=== PATIENT | female | born 1990 ===

== ENCOUNTER 2022-10-10 10:29 | Outpatient (AMB) | payer MEDICARE, MEDICAID, SELFPAY ==
[2022-10-10 10:36] VITALS: BP 110/70; PULSE 87; O2SAT 98; BMI 27.2
--- NOTE | 2022-10-10 10:36 | A.OFFVIS_ITS ---
Intake Vital Signs 10/10/22 10:36 Height 5 ft 2 in Weight 148 lb 12.992 oz BMI 27.2 BP 110/70 Blood Pressure Location Lt brachial Position Sitting Pulse 87 Pulse Source Pulse Oximeter Pulse Oximetry (%) 98 Oxygen Delivery Method Room Air Intake Visit Reasons: Pulmonary Nodules De Alcholizer Required: No Allergies No Known Allergies Allergy (Verified 10/10/22 10:38) HPI HPI Comments History of Present Illness Details The patient is here for pulmonary evaluation. The patient is a 32 year woman with a known history of lupus followed closely by the arthritis and has underlying interstitial lung disease and pulmonary nodules. The patient had been evaluated in [place] and then moved to the area and was being evaluated at [facility]. Back around 2018 the patient did have a CT scan at [facility] demonstrating bilateral irregular ill-defined fluffy opacities and densities. She did have a CT-guided biopsy demonstrating organizing pneumonia likely cough. The patient has been on hydrochloroquine and clinically she was stable. The patient was lost to follow-up because her doctor left. Now she is developing increasing chest tightness some pleuritic discomfort and cough. She has not had any imaging studies since 2018. I did personally reviewed the images. On examination her lungs are diminished. No crackles that I could appreciate. Patient needs a repeat CT scan. Will assess the area. If the areas are worse we will need to further perform diagnostic interventions and potential treatments. [facility] Medical History (Updated 10/10/22 @ 23:39 by Phill Cole MD) Chest pain Cryptogenic organizing pneumonia Lupus Pulmonary nodules Social History (Updated 10/10/22 @ 10:40 by ALESSANDRA Tse) Patient Tobacco Use Status: Never used Tobacco Review of Systems Const Denies fatigue and Denies fever(s) Eyes Denies change in vision ENT Reports nasal congestion Card Reports chest pain and Reports dyspnea on exertion Resp Reports cough, Reports dyspnea on exertion and Denies wheezing GI Reports no additional complaints Musc Reports no additional complaints Skin/Breast Denies rash Neuro Reports no additional complaints Endo Denies fatigue Taran/Lymph Denies lymphadenopathy Aller/Immun Denies wheezing Physical Exam Vital Signs: Last Vital Signs Pulse 87 10/10/22 10:36 BP 110/70 10/10/22 10:36 Pulse Ox 98 10/10/22 10:36 Oxygen Delivery Method Room Air 10/10/22 10:36 BMI result Body Mass Index 27.2 Const General: comfortable HEENT Head: Yes normocephalic Neck Neck: Yes supple Chest Chest palpation & inspection: normal inspection of the chest Cardio Rate: regular rate Rhythm: regular rhythm Heart sounds: S1 normal heart sound present and S2 normal heart sound present GI Palpation (GI): Soft to palpation Skin General skin exam: no rashes or lesions noted Extrem General: Yes no clubbing, cyanosis or edema Assessment & Plan Assessment & Plan (1) Lupus: Code(s): M32.9 - Systemic lupus erythematosus, unspecified (2) Pulmonary nodules: Code(s): R91.8 - Other nonspecific abnormal finding of lung field (3) Cryptogenic organizing pneumonia: Code(s): J84.116 - Cryptogenic organizing pneumonia (4) Chest pain: Code(s): R07.9 - Chest pain, unspecified Plan continue plaquenil CT chest, if worse, discussed a potential bronchosocpy t/o R/O infectious process Bloodwork, depending on the CT scan findings F/U 6-8 weeks Coding Level of Care Code New Pt Level 4 (64424) Diagnoses Lupus M32.9 Pulmonary nodules R91.8 Cryptogenic organizing pneumonia J84.116 Chest pain R07.9 Time Spent (min) 40
== END 2022-10-10 11:04 | disposition home or self-care (01) ==
PROVIDERS: PCP Internal Medicine; Visit Provider Hospitalist
DX: M32.9 Systemic lupus erythematosus, unspecified (principal); R91.8 Other nonspecific abnormal finding of lung field; J84.116 Cryptogenic organizing pneumonia; R07.9 Chest pain, unspecified
CPT/HCPCS: 99204

== ENCOUNTER → 2022-10-10 10:29 | Outpatient (BNVA) | payer MEDICARE, MEDICAID, SELFPAY | PROVIDERS: PCP Internal Medicine; Visit Provider Hospitalist | DX: R91.8 Other nonspecific abnormal finding of lung field (principal); M32.9 Systemic lupus erythematosus, unspecified; J84.116 Cryptogenic organizing pneumonia; R07.9 Chest pain, unspecified | CPT/HCPCS: 99202 ==

== ENCOUNTER 2022-11-30 10:39 | Outpatient (REF) | payer MEDICARE, MEDICAID, SELFPAY ==
[2022-11-30 11:11] LABS: MANUAL DIFF FLAG NO
[2022-11-30 11:34] LABS: Basophils Percent Auto 0.3 % (0-2); Eosinophils Absolute Auto 0.1 X10*3/uL (0.0-0.4); Eosinophils Percent Auto 1.9 % (0-4); Hematocrit 35.9 % (37.0-47.0); Hemoglobin 11.7 g/dl (12.0-16.0); Imm Gran Abs Auto 0.01 X10*3/uL (0.00-0.03); Imm Gran Pct Auto 0.3 % (0.0-0.4); Lymphocytes Percent Auto 32.8 % (20-40); Mean Corpuscular HGB Conc 32.6 g/dl (31.0-35.0); Mean Corpuscular Hemoglobin 24.5 pg (27.0-33.0); Mean Corpuscular Volume 75.3 fL (80.0-98.0); Mean Platelet Volume 11.6 fL (9.4-12.3); Monocytes Absolute Auto 0.2 X10*3/uL (0.1-1.2); Neutrophils Absolute Auto 1.8 x10*3/uL (2.0-8.3); Neutrophils Percent Auto 57.7 % (45-73); Platelet Count 197 X10*3/uL (160-400); Red Blood Count 4.77 X10*6/uL (4.20-5.50); Red Cell Distribution Width 14.9 % (11.0-16.0); White Blood Count 3.1 X10*3/uL (4.8-10.8)
[2022-11-30 11:59] LABS: Alanine Aminotransferase 26 U/L (0-31); Albumin Level 4.4 g/dL (3.5-5.0); Alkaline Phosphatase 92 U/L (39-117); Anion Gap 15 (12-20); Aspartate Amino Transferase 29 U/L (5-31); Bilirubin Direct 0.2 mg/dL (0.0-0.5); Bilirubin Total 0.5 mg/dL (0.0-1.0); Blood Urea Nitrogen 7 mg/dL (9-16); Calcium 9.6 mg/dL (8.4-10.2); Carbon Dioxide 25 mmol/L (22-29); Chloride 104 mmol/L (96-108); Estimated Glomerular Filt Rate > 60; Glucose Random 96 mg/dL (60-115); Iron 39 mcg/dL (30-160); Percent Iron Saturation 12 % (15-50); Potassium 4.1 mmol/L (3.3-5.1); Sodium 140 mmol/L (135-145); Total Iron Binding Capacity 339 mcg/dL (228-428); Total Protein 7.7 g/dL (6.5-8.0); Unsaturated Iron Binding 300 ug/dL
[2022-12-03 22:48] LABS: Complement C3 183 mg/dL (83-193)
[2022-12-05 15:02] LABS: DNAds, Crithidia Antibody Negative (Negative)
== END 2022-11-30 10:40 | disposition home or self-care (01) ==
LOC: HO.HHCL 10:39
PROVIDERS: Visit Provider Internal Medicine
DX: M32.9 Systemic lupus erythematosus, unspecified (principal); D64.9 Anemia, unspecified
CPT/HCPCS: 36415; 80048; 80076; 83540; 85025; 86160; 86255

== ENCOUNTER 2022-12-27 09:02 | Outpatient (REF) | payer MEDICARE, MEDICAID, SELFPAY ==
--- NOTE | ~2022-12-27 | CT_ITS ---
EXAMINATION: CT CHEST WITHOUT CONTRAST CLINICAL INFORMATION: Pulmonary nodule. COMPARISON: CT chest 01/04/2021. TECHNIQUE: Multidetector volumetric CT imaging of the chest was done. Axial MIP volume rendering provided. Sagittal and coronal reformatted images were obtained. This CT examination was performed using dose optimization techniques as appropriate, variously including the following: *Automated exposure control *Adjustment of mA and/or kV according to patient size (this includes techniques or standardized protocols for targeted exams where dose is matched to indication/reason for exam; i.e. extremities or head) *Use of iterative reconstruction technique DLP: 103 mGy-cm FINDINGS: LUNGS: Three small nodules are present around the minor fissure measuring between 2 and 3 mm in size, unchanged from prior (5:225 and 229). A 3 mm right upper lobe nodule is unchanged (5:249 compare prior 5:131). Again seen is a large reticular/ground-glass opacity in the right lower lobe covering an area of about 5.3 x 2.1 x 5.0 cm, unchanged from prior. A similar-appearing abnormality, but much smaller, is present in the left lower lobe at the lung base, unchanged. No new or worrisome lung mass is seen. MEDIASTINUM: The mediastinum is normal. CORONARY ARTERY CALCIFICATION: None visualized on this study. PLEURA: There is no pleural effusion. No pleural mass or thickening. AXILLA: No lymphadenopathy. A 1 cm short axis dimension left axillary lymph node is unchanged and not a worrisome finding. UPPER ABDOMEN: Unremarkable. OSSEOUS STRUCTURES: Unremarkable. CT/CT chest wo IV con IMPRESSION: 1. Stable small lung nodules. 2. Stable reticular/ground-glass opacities in the lower lobes, right greater than left. 3. No new or worrisome lung mass is seen. Fleischner guidelines do not apply to patients under 35 years of age.
== END 2022-12-27 09:03 | disposition home or self-care (01) ==
LOC: HO.CT 09:02
PROVIDERS: PCP Internal Medicine; Visit Provider Internal Medicine
DX: R91.8 Other nonspecific abnormal finding of lung field (principal)
CPT/HCPCS: 71250

== ENCOUNTER 2023-01-03 11:10 | Outpatient (AMB) | payer MEDICARE, MEDICAID, SELFPAY ==
[2023-01-03 11:16] VITALS: BP 122/70; PULSE 86; O2SAT 99; BMI 26.9
--- NOTE | 2023-01-03 11:16 | MHC.OFFVIS ---
Intake Vital Signs 01/03/23 11:16 Height 5 ft 2 in Weight 147 lb BMI 26.9 BP 122/70 Blood Pressure Location Lt brachial Position Sitting Pulse 86 Pulse Source Pulse Oximeter Pulse Oximetry (%) 99 Oxygen Delivery Method Room Air Intake Visit Reasons: Pulmonary Nodules Educational Audiologist Required: No Allergies No Known Allergies Allergy (Verified 01/03/23 11:19) HPI HPI Comments History of Present Illness Details The patient is a 32 year woman with a known history of lupus followed closely by the arthritis and has underlying interstitial lung disease and pulmonary nodules. The patient had been evaluated in [place] and then moved to the area and was being evaluated at [facility]. Back around 2018 the patient did have a CT scan at [facility] demonstrating bilateral irregular ill-defined fluffy opacities and densities. She did have a CT-guided biopsy demonstrating organizing pneumonia likely cough. The patient has been on hydrochloroquine and clinically she was stable. The patient was lost to follow-up because her doctor left. Now she is developing increasing chest tightness some pleuritic discomfort and cough. She has not had any imaging studies since 2018. I did personally reviewed the images. On examination her lungs are diminished. No crackles that I could appreciate. Patient needs a repeat CT scan. Will assess the area. If the areas are worse we will need to further perform diagnostic interventions and potential treatments. 01/03/2023 the patient is here for a pulmonary follow-up visit. The patient was any usual state health until the last few weeks when she started developing a respiratory illness. She started having worsening chest congestion and cough. Feels some chest tightness. She continues on the Plaquenil regarding her lupus appears to be stable. She did have a repeat CT scan of the chest which we personally reviewed. It appears that the areas involved with her organizing pneumonia back in 2018 have improved REM significantly although that is still there. Likely some degree of scarring was present. Does not appear to have any new spots or areas. She does have small pulmonary nodules. She does have pleuritic discomfort some degree but not in necessarily in the area involved. The patient does have some costochondritis. She has been coughing a lot more. She is congested. Will go ahead and treat her for bronchitis with bronchospasms. The patient is reluctant to use steroids. I gave her Medrol Gustavo that she can start if she is no better. [facility] Medical History (Updated 01/03/23 @ 19:19 by Phill Cole MD) Chest pain Cryptogenic organizing pneumonia Pulmonary nodules Lupus Social History (Updated 10/10/22 @ 10:40 by ALESSANDRA Tse) Patient Tobacco Use Status: Never used Tobacco Review of Systems Const Denies fatigue and Denies fever(s) Eyes Denies change in vision ENT Reports nasal congestion Card Reports chest pain and Reports dyspnea on exertion Resp Reports cough, Reports dyspnea on exertion and Denies wheezing GI Reports no additional complaints Musc Reports no additional complaints Skin/Breast Denies rash Neuro Reports no additional complaints Endo Denies fatigue Taran/Lymph Denies lymphadenopathy Aller/Immun Denies wheezing Physical Exam Vital Signs: Last Vital Signs Pulse 86 01/03/23 11:16 BP 122/70 01/03/23 11:16 Pulse Ox 99 01/03/23 11:16 Oxygen Delivery Method Room Air 01/03/23 11:16 BMI result Body Mass Index 26.9 Const General: comfortable HEENT Head: Yes normocephalic Neck Neck: Yes supple Chest Chest palpation & inspection: normal inspection of the chest Resp Effort & Inspection: normal respiratory effort and prolonged expiratory phase Auscultation: rhonchi Cardio Rate: regular rate Rhythm: regular rhythm Heart sounds: S1 normal heart sound present and S2 normal heart sound present GI Palpation (GI): Soft to palpation Skin General skin exam: no rashes or lesions noted Extrem General: Yes no clubbing, cyanosis or edema Assessment & Plan Assessment & Plan (1) Bronchitis: Code(s): J40 - Bronchitis, not specified as acute or chronic (2) Lupus: Code(s): M32.9 - Systemic lupus erythematosus, unspecified (3) Pulmonary nodules: Code(s): R91.8 - Other nonspecific abnormal finding of lung field (4) Cryptogenic organizing pneumonia: Code(s): J84.116 - Cryptogenic organizing pneumonia (5) Chest pain: Code(s): R07.9 - Chest pain, unspecified Qualifiers: Chest pain type: intercostal pain Qualified Code(s): R07.82 - Intercostal pain Plan ZPACK Medrol if no better MAGNOLIA as needed continue plaquenil CT chest in 1 yr F/U 6-8 months Medications: New albuterol sulfate 90 mcg/actuation (Ventolin HFA) 2 puffs inhalation QID 30 days PRN 18 grams 11RF shortness of breath or wheezing azithromycin 500 mg PO DAILY 5 days 5 tabs 0RF methylprednisolone (Medrol (Gustavo)) PO PER PKG DIR 6 days 21 ea 0RF Coding Level of Care Code Est Pt Level 4 (43614) Diagnoses Bronchitis J40 Lupus M32.9 Pulmonary nodules R91.8 Cryptogenic organizing pneumonia J84.116 Intercostal pain R07.82 Chest pain type: intercostal pain Time Spent (min) 17
== END 2023-01-03 11:38 | disposition home or self-care (01) ==
PROVIDERS: PCP Internal Medicine; Visit Provider Hospitalist
DX: J40 Bronchitis, not specified as acute or chronic (principal); M32.9 Systemic lupus erythematosus, unspecified; R91.8 Other nonspecific abnormal finding of lung field; J84.116 Cryptogenic organizing pneumonia; R07.82 Intercostal pain
CPT/HCPCS: 99214

== ENCOUNTER → 2023-01-03 11:10 | Outpatient (BNVA) | payer MEDICARE, MEDICAID, SELFPAY | PROVIDERS: PCP Internal Medicine; Visit Provider Hospitalist | DX: R91.8 Other nonspecific abnormal finding of lung field (principal); J40 Bronchitis, not specified as acute or chronic; J84.116 Cryptogenic organizing pneumonia; M32.9 Systemic lupus erythematosus, unspecified; R07.82 Intercostal pain | CPT/HCPCS: 99212 ==

== ENCOUNTER 2023-02-06 09:13 | Outpatient (AMB) | payer MEDICARE, MEDICAID, SELFPAY ==
[2023-02-06 09:26] VITALS: BP 130/60; PULSE 99
--- NOTE | 2023-02-06 09:26 | MHC.OFFVIS ---
Intake Vital Signs 02/06/23 09:26 Weight 151 lb 10.848 oz BP 130/60 Blood Pressure Location Lt brachial Position Sitting Pulse 99 Intake Visit Reasons: NPV/Dyspnea/HHC/Barciona Kumar Intake Note: patient its fine. Patrol Commander Required: Yes Patrol Commander Name: boris/katie Accompanied by: Self / Same As Patient Allergies No Known Allergies Allergy (Verified 01/03/23 11:19) Medication List - Last Reconciled 02/06/23 by Marco Loera MD albuterol sulfate 90 mcg/actuation (Ventolin HFA) 2 puffs inhalation QID PRN 30 days ferrous sulfate 325 mg PO DAILY folic acid 1 mg PO DAILY hydroxychloroquine (Plaquenil) 200 mg PO DAILY methylprednisolone (Medrol (Gustavo)) PO PER PKG DIR 6 days HPI HPI Comments History of Present Illness Details Pleasant 33 year female who is here for pleuritic chest pain and dyspnea. She has known history of lupus. She has been experiencing off and on sharp chest pains. These happen randomly and lasts for few seconds. She gets a sharp sensation on the left side of the chest and gets some breathing issues. Most her time this is happening to her when she is moving her arms to reach something high. She is saying that the pain is worse with movement of her torso and she has to rest and it goes away. No exertional symptoms otherwise. She is following with pulmonology for cryptogenic organizing pneumonia as well as pulmonary nodules. EKG has nonspecific T-wave changes. [facility] Medical History (Updated 01/03/23 @ 19:19 by Phill Cole MD) Chest pain Cryptogenic organizing pneumonia Pulmonary nodules Lupus Social History Patient Tobacco Use Status: Never used Tobacco Review of Systems Const Reports chills, Reports fatigue, Reports fever(s), Reports frequent falls, Reports weakness, Reports weight gain and Reports weight loss ENT Reports dizziness Card Reports chest pain, Reports leg edema, Reports lightheadedness, Reports palpitations, Reports dyspnea and Reports dyspnea on exertion Resp Reports cough, Reports dyspnea and Reports dyspnea on exertion GI Reports hematochezia Musc Reports abnormal gait, Reports muscle weakness, Reports numbness, Reports radiating pain into limb and Reports tingling Neuro Reports abnormal gait, Reports dizziness, Reports frequent falls, Reports numbness, Reports tingling and Reports weakness Endo Reports fatigue and Reports palpitations Physical Exam Vital Signs: Last Vital Signs Pulse 99 02/06/23 09:26 BP 130/60 02/06/23 09:26 GENERAL APPEARANCE: in no acute distress, pleasant. NECK: no carotid bruit, no jugular venous distention. SKIN: no suspicious lesions, warm and dry. HEART: no murmurs, regular rate and rhythm. LUNGS: clear to auscultation bilaterally. ABDOMEN: soft, nontender. EXTREMITIES: no edema. PERIPHERAL PULSES: equal. NEUROLOGIC: No gross deficits, AAO X 3 Office Procedures EKG Details: NSR 99/min, nonspecific T wave changes, QTc 472 msec. [id number], Complete Assessment & Plan Assessment & Plan (1) Chest pain: Code(s): R07.9 - Chest pain, unspecified Qualifiers: Chest pain type: intercostal pain Qualified Code(s): R07.82 - Intercostal pain Plan [age] year female who is here for chest pains. The chest pains are non anginal. Differentials include musculoskeletal versus pleurisy versus pericarditis. I think pericarditis is low on my differential currently. I would recommend doing an echocardiogram to assess the heart and to assess for any pericardial effusion. I have reassured her currently. Her symptoms are very infrequent currently and do not require any specific therapy. She will reach out to us if symptoms changed. Otherwise will see her in 4 months after echocardiography was done. Thank you for allowing me to participate in the care of your patient. Please feel free to contact me if you have any questions. Orders: Orders CA echo transthoracic complete Today R07.82 - Intercostal pain Coding Level of Care Code New Pt Level 4 (78033) Diagnoses Intercostal pain R07.82 Chest pain type: intercostal pain CPT Codes EKG - CPT: 18704-[id number], Complete ([id number])
== END 2023-02-06 10:01 | disposition home or self-care (01) ==
PROVIDERS: PCP Internal Medicine; Visit Provider Internal Medicine Cardiovascular Disease
DX: R07.82 Intercostal pain (principal)
CPT/HCPCS: 93010; 99204

== ENCOUNTER → 2023-02-06 09:13 | Outpatient (BNVA) | payer MEDICARE, MEDICAID, SELFPAY | PROVIDERS: PCP Internal Medicine; Visit Provider Internal Medicine Cardiovascular Disease | DX: R07.82 Intercostal pain (principal) | CPT/HCPCS: 93005; 99202 ==

== ENCOUNTER → 2023-04-12 08:52 | Outpatient (REF) | payer MEDICARE, MEDICAID, SELFPAY ==
--- NOTE | 2023-04-12 08:55 | CA_ITS ---
Transthoracic Echocardiogram Patient (Last, First, Middle): Allyson Merino, Gender: Female Date of : 1990 Age: 33 Procedure Date: 04/12/2023 Procedure Type: Transthoracic Echocardiogram Location: OP Height: 157.48 cm Weight: 66.68 kg BSA: 1.68 m2 Heart Rate: bpm BP: 118 / 80 mmHg Chlorobutadiene Scrubber Operator: TO Referring MD: Marco Loera MD Snowboarder: Marco Loera MD Symptoms: R07.82 - Intercostal pain Study Quality: Fair/Contrast ECG Rhythm: Sinus Conclusions: - The left ventricular systolic function is mildly decreased. The visually estimated ejection fraction is between 45-50%. - LV peak GLS -11.9%. - Possible basal inferior wall hypokinesis. - No obvious valvular pathology seen on this study. Findings Procedure Information Contrast agent, definity, is being given per protocol without apparent complications. Left Ventricle Normal left ventricular cavity size. There is normal left ventricular wall thickness. The left ventricular systolic function is mildly decreased. The visually estimated ejection fraction is between 45-50%. There is mild global hypokinesis. Diastolic function is normal for age. LV peak GLS -11.9%. Right Ventricle Normal right ventricular cavity size and systolic function. Atria Both atria are normal in size. Aortic Valve There is a normal trileaflet aortic valve. There is no aortic valve stenosis. There is no aortic valve regurgitation. Mitral Valve The mitral valve appears normal. There is trace mitral valve regurgitation. There is no mitral valve stenosis. Pulmonic Valve The pulmonic valve is likely normal. Tricuspid Valve There is no tricuspid valve regurgitation. Tricuspid regurgitation envelope is inadequate for calculation of right ventricular systolic pressure. Great Vessels The asc aorta is normal in size. Venous The inferior vena cava is normal in size and collapses greater than 50% with inspiration. Pericardium/Pleural There is no evidence of pericardial effusion. Prior Study Comparison No prior study available for comparison. Recommendations, Care & Conclusions No obvious valvular pathology seen on this study. Measurements 2D Linear Measurements IVSd: 0.84 0.6-0.9/0.6-1.0 cm LVIDd: 4.71 3.9-5.3/4.2-5.9 cm LVIDd Index: 2.80 2.4-3.2/2.2-3.1 cm/m2 LVIDs: 3.44 2.0-3.6 cm LVPWd: 0.77 0.7-1.1 cm LA Diam: 2.30 2.7-3.8/3.0-4.0 cm LAIDs Index: 1.37 1.5-2.3 cm/m2 LV Mass: 153.49 67-162/88-224 g LV Mass Index: 91.36 43-95/49-115 g/m2 LVOT Diam: 1.90 3.0+(-)1.3 cm 2D Systolic Function EF 4C: 46.90 >55% EF 2C: 52.20 >55% EF BiP: 50.20 >55% Mitral Valve MV Pk E: 0.57 MV PK A: 0.51 MV Decel Time: 182.00 E/A: 1.10 E'Lateral: 11.10 E'Medial: 8.38 E/E' Med: 6.80 E/E' Lat: 5.10 PHT: 53.00 MVA PHT: 4.15 Decel [place]: 3.11 Aortic Valve AoV Pk Carlos: 1.19 AoV Mn Carlos: 0.82 AoV VTI: 0.19 AoV Pk Grad: 6.00 Aov Mn Grad: 3.00 JESSICA Cont.VTI: 2.45 LVOT LVOT Pk Carlos: 1.04 LVOT Mn Carlos: 0.69 LVOT VTI: 0.16 LVOT Pk Grad: 4.00 LVOT Mn Grad: 2.00 LVOT Diam: 1.90 LVOT Area: 2.84 Diastolic Function MV Pk E: 0.57 MV Pk A: 0.51 E/A: 1.10 E'Medial: 8.38 E/E' Med: 6.80 E' Laterial: 11.10 E/E' Lat: 5.10 Right Ventricle TAPSE (mm): 19.10 TVS' Carlos: 11.50 Tricuspid Valve RA Press: 3.00 Great Vessels Aorta Sinus of Valsalva: 2.69 2.0-3.5 cm Ao Asc: 2.70 2.1-3.4 cm Updated in Other Vendor System with Status of Final Oneil Arita MD electronically signed on 04/14/2023 8:16:50 AM with status of Final
== END ==
LOC: HO.CARD 08:52
PROVIDERS: PCP Internal Medicine; Visit Provider Internal Medicine Cardiovascular Disease
DX: R07.82 Intercostal pain (principal)
CPT/HCPCS: 93306; 93356; Q9957

== ENCOUNTER → 2023-04-12 08:55 | Outpatient (BNV) | payer MEDICARE, MEDICAID, SELFPAY | PROVIDERS: PCP Internal Medicine; Visit Provider Internal Medicine | DX: R07.82 Intercostal pain (principal) | CPT/HCPCS: 93306 ==

== ENCOUNTER 2023-07-03 13:26 | Outpatient (AMB) | payer MEDICARE, MEDICAID, SELFPAY ==
[2023-07-03 13:32] VITALS: BP 130/80; PULSE 99; O2SAT 98; BMI 26.4
--- NOTE | 2023-07-03 13:32 | A.OFFVIS_ITS ---
Vital Signs 07/03/23 13:32 Height 5 ft 2 in Weight 144 lb 2.917 oz BMI 26.4 BP 130/80 Blood Pressure Location Rt brachial Position Sitting Pulse 99 Pulse Source Pulse Oximeter Pulse Oximetry (%) 98 Intake Visit Reasons: f/up after testing echo/CTA Intake Note: pt states that she its doing fine, no new symtoms Telephone Switchboard Operator Required: Yes Telephone Switchboard Operator Name: [id number]/katie Accompanied by: Self / Same As Patient Allergies No Known Allergies Allergy (Verified 01/03/23 11:19) Medication List - Last Reconciled 07/03/23 by Marco Loera MD albuterol sulfate 90 mcg/actuation (Ventolin HFA) 2 puffs inhalation QID PRN 30 days folic acid 1 mg PO DAILY hydroxychloroquine (Plaquenil) 200 mg PO DAILY methotrexate 2.5 mg PO QWEEK methylprednisolone (Medrol (Gustavo)) PO PER PKG DIR 6 days HPI Comments Details: Pleasant 33 year female who is here for pleuritic chest pain and dyspnea. She has known history of lupus. She has been experiencing off and on sharp chest pains. These happen randomly and lasts for few seconds. She gets a sharp sensation on the left side of the chest and gets some breathing issues. Most her time this is happening to her when she is moving her arms to reach something high. She is saying that the pain is worse with movement of her torso and she has to rest and it goes away. No exertional symptoms otherwise. She is following with pulmonology for cryptogenic organizing pneumonia as well as pulmonary nodules. EKG has nonspecific T-wave changes. 07/03/2023: She returns for follow-up. She was referred for echocardiography where EF was noticed to be 45-50% with basal inferior wall hypokinesis. She was referred for coronary CTA. It appears he went for CTA but she was quite tachycardic and the could not proceed with the CTA. I was called by the radiologist that she will be rescheduled. She returns and continues to get atypical chest pains. [facility] Medical History (Updated 07/03/23 @ 14:18 by Marco Loera MD) Chest pain Cryptogenic organizing pneumonia Pulmonary nodules Lupus Social History Patient Tobacco Use Status: Never used Tobacco Review of Systems Const Denies chills, Denies fatigue, Denies fever(s), Denies frequent falls, Denies weakness, Denies weight gain and Denies weight loss ENT Denies dizziness Card Denies chest pain, Denies leg edema, Denies lightheadedness, Denies palpitations, Denies dyspnea and Denies dyspnea on exertion Resp Denies cough, Denies dyspnea and Denies dyspnea on exertion GI Denies hematochezia Musc Denies abnormal gait, Denies muscle weakness, Denies numbness, Denies radiating pain into limb and Denies tingling Neuro Denies abnormal gait, Denies dizziness, Denies frequent falls, Denies numbness, Denies tingling and Denies weakness Endo Denies fatigue and Denies palpitations Physical Exam Vital Signs: Last Vital Signs Pulse 99 07/03/23 13:32 BP 130/80 07/03/23 13:32 Pulse Ox 98 07/03/23 13:32 BMI result Body Mass Index 26.4 GENERAL APPEARANCE: in no acute distress, pleasant. NECK: no carotid bruit, no jugular venous distention. SKIN: no suspicious lesions, warm and dry. HEART: no murmurs, regular rate and rhythm. LUNGS: clear to auscultation bilaterally. ABDOMEN: soft, nontender. EXTREMITIES: no edema. PERIPHERAL PULSES: equal. NEUROLOGIC: No gross deficits, AAO X 3 Assessment & Plan Assessment & Plan (1) Chest pain: Code(s): R07.9 - Chest pain, unspecified Category: Medical Qualifiers: Chest pain type: intercostal pain Qualified Code(s): R07.82 - Intercostal pain (2) Cardiomyopathy: Code(s): I42.9 - Cardiomyopathy, unspecified Category: Medical Plan 33-year-old female with background history of lupus, pulmonary nodule, cryptogenic organizing pneumonia, chest pains and mild cardiomyopathy by echocardiography with EF 45-50% with basal inferior wall motion abnormality. She was referred for coronary CTA to define her coronary anatomy but she was quite tachycardic when she went in for the CTA was canceled. I am adding metoprolol 25 mg twice a day to control her heart rate. We will reschedule her for coronary CTA. If again she can not do it for tachycardia despite beta- blockers then we will arrange diagnostic angiography. Otherwise same medications for now. Thank you for allowing me to participate in the care of your patient. Please feel free to contact me if you have any questions. Medications: New metoprolol tartrate 25 mg PO BID 60 tabs 0RF Coding Level of Care Code Est Pt Level 4 (47740) Diagnoses Intercostal pain R07.82 Chest pain type: intercostal pain Cardiomyopathy I42.9
== END 2023-07-03 15:09 | disposition home or self-care (01) ==
PROVIDERS: PCP Internal Medicine; Visit Provider Internal Medicine Cardiovascular Disease
DX: R07.82 Intercostal pain (principal); I42.9 Cardiomyopathy, unspecified
CPT/HCPCS: 99214

== ENCOUNTER → 2023-07-03 13:26 | Outpatient (BNVA) | payer MEDICARE, MEDICAID, SELFPAY | PROVIDERS: PCP Internal Medicine; Visit Provider Internal Medicine Cardiovascular Disease | DX: R07.9 Chest pain, unspecified (principal); I42.9 Cardiomyopathy, unspecified; R91.8 Other nonspecific abnormal finding of lung field | CPT/HCPCS: 99212 ==

== ENCOUNTER 2023-07-05 11:09 | Outpatient (AMB) | payer MEDICARE, MEDICAID, SELFPAY ==
[2023-07-05 11:15] VITALS: BP 110/70; PULSE 89; O2SAT 98; BMI 26.0
--- NOTE | 2023-07-05 11:15 | MHC.OFFVIS ---
Vital Signs 07/05/23 11:15 Height 5 ft 2 in Weight 142 lb BMI 26.0 BP 110/70 Blood Pressure Location Lt brachial Position Sitting Pulse 89 Pulse Source Pulse Oximeter Pulse Oximetry (%) 98 Oxygen Delivery Method Room Air Intake Visit Reasons: Pulmonary Nodules Tissue Recovery Technician Required: No Allergies No Known Allergies Allergy (Verified 07/05/23 11:18) HPI Comments Details: The patient is a 32 year woman with a known history of lupus followed closely by the arthritis and has underlying interstitial lung disease and pulmonary nodules. The patient had been evaluated in [place] and then moved to the area and was being evaluated at [facility]. Back around 2017 the patient did have a CT scan at [facility] demonstrating bilateral irregular ill-defined fluffy opacities and densities. She did have a CT-guided biopsy demonstrating organizing pneumonia likely cough. The patient has been on hydrochloroquine and clinically she was stable. The patient was lost to follow-up because her doctor left. Now she is developing increasing chest tightness some pleuritic discomfort and cough. She has not had any imaging studies since 2018. I did personally reviewed the images. On examination her lungs are diminished. No crackles that I could appreciate. Patient needs a repeat CT scan. Will assess the area. If the areas are worse we will need to further perform diagnostic interventions and potential treatments. 01/03/2023 the patient is here for a pulmonary follow-up visit. The patient was any usual state health until the last few weeks when she started developing a respiratory illness. She started having worsening chest congestion and cough. Feels some chest tightness. She continues on the Plaquenil regarding her lupus appears to be stable. She did have a repeat CT scan of the chest which we personally reviewed. It appears that the areas involved with her organizing pneumonia back in 2018 have improved REM significantly although that is still there. Likely some degree of scarring was present. Does not appear to have any new spots or areas. She does have small pulmonary nodules. She does have pleuritic discomfort some degree but not in necessarily in the area involved. The patient does have some costochondritis. She has been coughing a lot more. She is congested. Will go ahead and treat her for bronchitis with bronchospasms. The patient is reluctant to use steroids. I gave her Medrol Gustavo that she can start if she is no better. 07/05/2023 the patient is here for a pulmonary follow-up visit. Patient overall feels better from the chest discomfort and cough. She is complaining of increasing dyspnea on exertion and also has back pain. She also has significant arthritic 80s. She is now seeing a market development director in [place]. She was recently placed on methotrexate taking 6 tablets weekly. She just started the medication just a few weeks ago. She still has not seen significant improvement she is still pretty uncomfortable pain was. With dyspnea symptoms we did go for brief walking oximetry. The patient maintain a pulse ox of 98% which is reassuring. Her respiratory exam is also reassuring. I do not believe that there is any methotrexate induced toxicity. However, if her symptoms worsen she will come in for an x-ray. The patient also is been evaluated from a cardiac standpoint. She had a slight decrease in the ejection fraction and now plan to have a coronary artery angiogram. The patient also has pulmonary nodules and history of organizing pneumonia from her lupus. Will plan to repeat a formal CT scan of the chest in 6 months to address those abnormalities. Otherwise she is going to continue on current therapy. She would like to hold off on any steroids and she is on methotrexate and she will be following up closely with market development director and also Cardiology. If she has any worsening symptoms she will call the office otherwise will follow-up in [address] scan. COUNT INCLUDES THE [facility] Medical History (Updated 07/05/23 @ 12:46 by Phill Cole MD) Dyspnea Chest pain Cryptogenic organizing pneumonia Pulmonary nodules Lupus Social History Patient Tobacco Use Status: Never used Tobacco Review of Systems Const Denies fatigue and Denies fever(s) Eyes Denies change in vision ENT Reports nasal congestion Card Reports chest pain and Reports dyspnea on exertion Resp Denies cough, Reports dyspnea on exertion and Denies wheezing GI Reports no additional complaints Musc Reports back pain, Reports myalgias, Reports arthralgias and Reports joint swelling Skin/Breast Reports rash Neuro Reports no additional complaints Endo Denies fatigue Taran/Lymph Denies lymphadenopathy Aller/Immun Denies wheezing Physical Exam Const General: comfortable HEENT Head: Yes normocephalic Neck Neck: Yes supple Chest Chest palpation & inspection: normal inspection of the chest Resp Effort & Inspection: normal respiratory effort Auscultation: clear to auscultation bilaterally and rhonchi Cardio Rate: regular rate Rhythm: regular rhythm Heart sounds: S1 normal heart sound present and S2 normal heart sound present GI Palpation (GI): Soft to palpation Skin General skin exam: no rashes or lesions noted Extrem General: Yes no clubbing, cyanosis or edema Assessment & Plan Assessment & Plan (1) Lupus: Code(s): M32.9 - Systemic lupus erythematosus, unspecified Category: Medical (2) Pulmonary nodules: Code(s): R91.8 - Other nonspecific abnormal finding of lung field Category: Medical (3) Cryptogenic organizing pneumonia: Code(s): J84.116 - Cryptogenic organizing pneumonia Category: Medical (4) Chest pain: Code(s): R07.9 - Chest pain, unspecified Category: Medical Qualifiers: Chest pain type: intercostal pain Qualified Code(s): R07.82 - Intercostal pain (5) Dyspnea: Code(s): R06.00 - Dyspnea, unspecified Category: Medical Qualifiers: Dyspnea type: dyspnea on exertion Qualified Code(s): R06.09 - Other forms of dyspnea Plan MAGNOLIA as needed continue plaquenil CT chest in 6 months F/U 6-8 months Orders: Orders CT chest wo IV con 6 Months R91.8 - Other nonspecific abnormal finding of lung field XR chest 2V Today R06.00 - Dyspnea, unspecified, R91.8 - Other nonspecific abnormal finding of lung field Coding Level of Care Code Est Pt Level 4 (21576) Diagnoses Lupus M32.9 Pulmonary nodules R91.8 Cryptogenic organizing pneumonia J84.116 Intercostal pain R07.82 Chest pain type: intercostal pain Dyspnea on exertion R06.09 Dyspnea type: dyspnea on exertion Time Spent (min) 17
== END 2023-07-05 11:36 | disposition home or self-care (01) ==
PROVIDERS: PCP Internal Medicine; Visit Provider Hospitalist
DX: M32.9 Systemic lupus erythematosus, unspecified (principal); R91.8 Other nonspecific abnormal finding of lung field; J84.116 Cryptogenic organizing pneumonia; R07.82 Intercostal pain; R06.09 Other forms of dyspnea
CPT/HCPCS: 99214

== ENCOUNTER → 2023-07-05 11:09 | Outpatient (BNVA) | payer MEDICARE, MEDICAID, SELFPAY | PROVIDERS: PCP Internal Medicine; Visit Provider Hospitalist | DX: M32.9 Systemic lupus erythematosus, unspecified (principal); R91.8 Other nonspecific abnormal finding of lung field; J84.116 Cryptogenic organizing pneumonia; R07.82 Intercostal pain; R06.09 Other forms of dyspnea; Z79.899 Other long term (current) drug therapy | CPT/HCPCS: 99212 ==

== ENCOUNTER 2023-11-26 15:27 | Outpatient (REF) | payer MEDICARE, MEDICAID, SELFPAY ==
[2023-11-26 16:54] LABS: MANUAL DIFF FLAG NO
[2023-11-26 16:57] LABS: Basophils Percent Auto 0.4 % (0-2); Eosinophils Absolute Auto 0.1 X10*3/uL (0.0-0.4); Eosinophils Percent Auto 1.4 % (0-4); Hematocrit 31.2 % (37.0-47.0); Hemoglobin 10.4 g/dl (12.0-16.0); Imm Gran Abs Auto 0.01 X10*3/uL (0.00-0.03); Imm Gran Pct Auto 0.2 % (0.0-0.4); Lymphocytes Absolute Auto 1.3 X10*3/uL (1.2-4.9); Lymphocytes Percent Auto 26.5 % (20-40); Mean Corpuscular HGB Conc 33.3 g/dl (31.0-35.0); Mean Corpuscular Hemoglobin 25.2 pg (27.0-33.0); Mean Corpuscular Volume 75.5 fL (80.0-98.0); Mean Platelet Volume 11.7 fL (9.4-12.3); Monocytes Absolute Auto 0.5 X10*3/uL (0.1-1.2); Monocytes Percent Auto 9.4 % (2-11); Neutrophils Absolute Auto 3.1 x10*3/uL (2.0-8.3); Neutrophils Percent Auto 62.1 % (45-73); Platelet Count 249 X10*3/uL (160-400); Red Blood Count 4.13 X10*6/uL (4.20-5.50); Red Cell Distribution Width 16.1 % (11.0-16.0)
[2023-11-26 18:27] LABS: Alanine Aminotransferase 7 U/L (0-31); Albumin Level 4.3 g/dL (3.5-5.0); Alkaline Phosphatase 77 U/L (39-117); Anion Gap 11 (12-20); Aspartate Amino Transferase 14 U/L (5-31); Bilirubin Total 0.6 mg/dL (0.0-1.0); Blood Urea Nitrogen 12 mg/dL (9-16); Calcium 9.8 mg/dL (8.4-10.2); Carbon Dioxide 24 mmol/L (22-29); Chloride 107 mmol/L (96-108); Estimated Glomerular Filt Rate > 60; Glucose Random 97 mg/dL (60-115); Potassium 4.4 mmol/L (3.3-5.1); Sodium 138 mmol/L (135-145); TSH reflex Free T4 1.64 uIU/mL (0.32-4.0); Total Protein 7.7 g/dL (6.5-8.0)
== END 2023-11-26 15:28 | disposition home or self-care (01) ==
LOC: HO.HHCL 15:27
PROVIDERS: Visit Provider Internal Medicine
DX: M32.9 Systemic lupus erythematosus, unspecified (principal)
CPT/HCPCS: 36415; 80053; 84443; 85025

== ENCOUNTER 2024-01-14 10:15 | Outpatient (AMB) | payer MEDICARE, MEDICAID, SELFPAY ==
[2024-01-14 10:18] VITALS: BP 104/56; PULSE 107; O2SAT 98; BMI 25.4
--- NOTE | 2024-01-14 10:18 | A.OFFVIS_ITS ---
Vital Signs 01/14/24 10:18 Height 5 ft 2 in Weight 138 lb 14.259 oz BMI 25.4 BP 104/56 L Blood Pressure Location Lt brachial Position Sitting Pulse 107 H Pulse Source Pulse Oximeter Pulse Oximetry (%) 98 Oxygen Delivery Method Room Air Intake Visit Reasons: Pulmonary Nodules Hotel Front Desk Clerk Required: No Pond Supervisor: Pond Supervisor offered & declined Accompanied by: Self / Same As Patient Allergies No Known Allergies Allergy (Verified 01/14/24 10:24) Medication List - Last Reconciled 01/14/24 by Kimi Tabor LPN albuterol sulfate 90 mcg/actuation (Ventolin HFA) 2 puffs inhalation QID PRN 30 days folic acid 1 mg PO DAILY hydroxychloroquine (Plaquenil) 200 mg PO DAILY methotrexate 2.5 mg PO QWEEK metoprolol tartrate 25 mg PO BID HPI Comments Details: The patient is a 34 year woman with a known history of lupus followed closely by the arthritis and has underlying interstitial lung disease and pulmonary nodules. The patient had been evaluated in [place] and then moved to the [facility] and was being evaluated at [facility]. Back around 2018 the patient did have a CT scan at [facility] demonstrating bilateral irregular ill- defined fluffy opacities and densities. She did have a CT-guided biopsy demonstrating organizing pneumonia likely cough. The patient has been on hydrochloroquine and clinically she was stable. The patient was lost to follow- up because her doctor left. Now she is developing increasing chest tightness some pleuritic discomfort and cough. She has not had any imaging studies since 2018. I did personally reviewed the images. On examination her lungs are diminished. No crackles that I could appreciate. Patient needs a repeat CT scan. Will assess the area. If the areas are worse we will need to further perform diagnostic interventions and potential treatments. 01/03/2023 the patient is here for a pulmonary follow-up visit. The patient was any usual state health until the last few weeks when she started developing a respiratory illness. She started having worsening chest congestion and cough. Feels some chest tightness. She continues on the Plaquenil regarding her lupus appears to be stable. She did have a repeat CT scan of the chest which we personally reviewed. It appears that the areas involved with her organizing pneumonia back in 2018 have improved REM significantly although that is still there. Likely some degree of scarring was present. Does not appear to have any new spots or areas. She does have small pulmonary nodules. She does have pleuritic discomfort some degree but not in necessarily in the area involved. The patient does have some costochondritis. She has been coughing a lot more. She is congested. Will go ahead and treat her for bronchitis with bronchospasms. The patient is reluctant to use steroids. I gave her Medrol Gustavo that she can start if she is no better. 07/05/2023 the patient is here for a pulmonary follow-up visit. Patient overall feels better from the chest discomfort and cough. She is complaining of increasing dyspnea on exertion and also has back pain. She also has significant arthritic 80s. She is now seeing a python programmer in [place]. She was recently placed on methotrexate taking 6 tablets weekly. She just started the medication just a few weeks ago. She still has not seen significant improvement she is still pretty uncomfortable pain was. With dyspnea symptoms we did go for brief walking oximetry. The patient maintain a pulse ox of 98% which is reassuring. Her respiratory exam is also reassuring. I do not believe that there is any methotrexate induced toxicity. However, if her symptoms worsen she will come in for an x-ray. The patient also is been evaluated from a cardiac standpoint. She had a slight decrease in the ejection fraction and now plan to have a coronary artery angiogram. The patient also has pulmonary nodules and history of organizing pneumonia from her lupus. Will plan to repeat a formal CT scan of the chest in 6 months to address those abnormalities. Otherwise she is going to continue on current therapy. She would like to hold off on any steroids and she is on methotrexate and she will be following up closely with python programmer and also Cardiology. If she has any worsening symptoms she will call the office otherwise will follow-up in [address] scan. 01/14/2024 the patient is here for a pulmonary follow-up visit. Overall she is doing well from a respiratory status. She denies any chest discomfort. She sometimes she does get some back discomfort not sure if she is musculoskeletal or now. But otherwise denies any cough or shortness of breath with any activity. The patient is being followed closely was there. Recently she started infusion every month. This month will be her 4th infusion. She has been tolerating it well. She does not know the name of the medication. We did talk about her CT scan of the chest. She did have areas of ground-glass opacities and nodular densities that need to have follow-up. She did have a CT scan scheduled but she canceled it. She start since she was feeling well that she did not needed. Explained to her that that is okay specially since she started a new treatment protocol. Will have her continue this treatment protocol and plan to repeat her CT scan done in June as long she is doing okay. If she develops any worsening symptoms or any concerning symptoms she will call in order to address his an earlier time. Otherwise will follow-up sometime June after her CT scan. If she has any issues prior to that she call for an earlier assessment. [facility] Medical History (Updated 07/05/23 @ 12:46 by Phill Cole MD) Dyspnea Chest pain Cryptogenic organizing pneumonia Pulmonary nodules Lupus Social History Patient Tobacco Use Status: Never used Tobacco Review of Systems Const Denies fatigue and Denies fever(s) Eyes Denies change in vision ENT Reports nasal congestion Card Denies dyspnea on exertion Resp Denies cough, Denies dyspnea on exertion and Denies wheezing GI Reports no additional complaints Musc Reports back pain, Reports myalgias, Reports arthralgias and Reports joint swelling Skin/Breast Reports rash Neuro Reports no additional complaints Endo Denies fatigue Taran/Lymph Denies lymphadenopathy Aller/Immun Denies wheezing Physical Exam Vital Signs: Last Vital Signs Pulse 107 H 01/14/24 10:18 BP 104/56 L 01/14/24 10:18 Pulse Ox 98 01/14/24 10:18 Oxygen Delivery Method Room Air 01/14/24 10:18 BMI result Body Mass Index 25.4 Const General: comfortable HEENT Head: Yes normocephalic Neck Neck: Yes supple Chest Chest palpation & inspection: normal inspection of the chest Resp Effort & Inspection: normal respiratory effort Auscultation: clear to auscultation bilaterally and no rhonchi Cardio Rate: regular rate Rhythm: regular rhythm Heart sounds: S1 normal heart sound present and S2 normal heart sound present GI Palpation (GI): Soft to palpation Skin General skin exam: no rashes or lesions noted Extrem General: Yes no clubbing, cyanosis or edema Assessment & Plan Assessment & Plan (1) Lupus: Code(s): M32.9 - Systemic lupus erythematosus, unspecified Category: Medical (2) Pulmonary nodules: Code(s): R91.8 - Other nonspecific abnormal finding of lung field Category: Medical (3) Cryptogenic organizing pneumonia: Code(s): J84.116 - Cryptogenic organizing pneumonia Category: Medical (4) Chest pain: Code(s): R07.9 - Chest pain, unspecified Category: Medical Qualifiers: Chest pain type: intercostal pain Qualified Code(s): R07.82 - Intercostal pain (5) Dyspnea: Code(s): R06.00 - Dyspnea, unspecified Category: Medical Qualifiers: Dyspnea type: dyspnea on exertion Qualified Code(s): R06.09 - Other forms of dyspnea Plan MAGNOLIA as needed continue plaquenil CT chest in 6 months F/U 6-8 months Orders: Orders CT chest wo IV con 06/02/24 R91.8 - Other nonspecific abnormal finding of lung field Coding Level of Care Code Est Pt Level 4 (47496) Diagnoses Lupus M32.9 Pulmonary nodules R91.8 Cryptogenic organizing pneumonia J84.116 Intercostal pain R07.82 Chest pain type: intercostal pain Dyspnea on exertion R06.09 Dyspnea type: dyspnea on exertion Time Spent (min) 16
== END 2024-01-14 10:41 | disposition home or self-care (01) ==
PROVIDERS: PCP Internal Medicine; Visit Provider Hospitalist
DX: M32.9 Systemic lupus erythematosus, unspecified (principal); R91.8 Other nonspecific abnormal finding of lung field; J84.116 Cryptogenic organizing pneumonia; R07.82 Intercostal pain; R06.09 Other forms of dyspnea
CPT/HCPCS: 99214

== ENCOUNTER → 2024-01-14 10:15 | Outpatient (BNVA) | payer MEDICARE, MEDICAID, SELFPAY | PROVIDERS: PCP Internal Medicine; Visit Provider Hospitalist | DX: M32.9 Systemic lupus erythematosus, unspecified (principal); R91.8 Other nonspecific abnormal finding of lung field; R07.82 Intercostal pain; R06.09 Other forms of dyspnea; J84.116 Cryptogenic organizing pneumonia | CPT/HCPCS: 99212 ==

== ENCOUNTER 2024-04-16 14:21 | Outpatient (AMB) | payer MEDICARE, MEDICAID, SELFPAY ==
--- NOTE | 2024-04-16 14:23 | MHC.OFFVIS ---
Vital Signs 04/16/24 14:24 Height 5 ft 2 in Weight 145 lb 8.081 oz BMI 26.6 BP 110/62 Blood Pressure Location Rt brachial Position Sitting Pulse 132 H Pulse Source Doppler Pulse Oximetry (%) 92 Oxygen Delivery Method Room Air Intake Visit Reasons: Cough/Pulm Nodules Surveillance Sensor Officer Required: Yes Surveillance Sensor Officer Name: Sarai Kingsley Rio Allergies No Known Allergies Allergy (Verified 04/16/24 14:25) HPI Comments Details: The patient is a 34 year woman with a known history of lupus followed closely by the arthritis and has underlying interstitial lung disease and pulmonary nodules. The patient had been evaluated in [place] and then moved to the area and was being evaluated at [facility]. Back around 2018 the patient did have a CT scan at [facility] demonstrating bilateral irregular ill-defined fluffy opacities and densities. She did have a CT-guided biopsy demonstrating organizing pneumonia likely cough. The patient has been on hydrochloroquine and clinically she was stable. The patient was lost to follow-up because her doctor left. Now she is developing increasing chest tightness some pleuritic discomfort and cough. She has not had any imaging studies since 2018. I did personally reviewed the images. On examination her lungs are diminished. No crackles that I could appreciate. Patient needs a repeat CT scan. Will assess the area. If the areas are worse we will need to further perform diagnostic interventions and potential treatments. 01/03/2023 the patient is here for a pulmonary follow-up visit. The patient was any usual state health until the last few weeks when she started developing a respiratory illness. She started having worsening chest congestion and cough. Feels some chest tightness. She continues on the Plaquenil regarding her lupus appears to be stable. She did have a repeat CT scan of the chest which we personally reviewed. It appears that the areas involved with her organizing pneumonia back in 2018 have improved REM significantly although that is still there. Likely some degree of scarring was present. Does not appear to have any new spots or areas. She does have small pulmonary nodules. She does have pleuritic discomfort some degree but not in necessarily in the area involved. The patient does have some costochondritis. She has been coughing a lot more. She is congested. Will go ahead and treat her for bronchitis with bronchospasms. The patient is reluctant to use steroids. I gave her Medrol Gustavo that she can start if she is no better. 07/05/2023 the patient is here for a pulmonary follow-up visit. Patient overall feels better from the chest discomfort and cough. She is complaining of increasing dyspnea on exertion and also has back pain. She also has significant arthritic 80s. She is now seeing a management retail intern in [place]. She was recently placed on methotrexate taking 6 tablets weekly. She just started the medication just a few weeks ago. She still has not seen significant improvement she is still pretty uncomfortable pain was. With dyspnea symptoms we did go for brief walking oximetry. The patient maintain a pulse ox of 98% which is reassuring. Her respiratory exam is also reassuring. I do not believe that there is any methotrexate induced toxicity. However, if her symptoms worsen she will come in for an x-ray. The patient also is been evaluated from a cardiac standpoint. She had a slight decrease in the ejection fraction and now plan to have a coronary artery angiogram. The patient also has pulmonary nodules and history of organizing pneumonia from her lupus. Will plan to repeat a formal CT scan of the chest in 6 months to address those abnormalities. Otherwise she is going to continue on current therapy. She would like to hold off on any steroids and she is on methotrexate and she will be following up closely with management retail intern and also Cardiology. If she has any worsening symptoms she will call the office otherwise will follow-up in [address] scan. 01/14/2024 the patient is here for a pulmonary follow-up visit. Overall she is doing well from a respiratory status. She denies any chest discomfort. She sometimes she does get some back discomfort not sure if she is musculoskeletal or now. But otherwise denies any cough or shortness of breath with any activity. The patient is being followed closely was there. Recently she started infusion every month. This month will be her 4th infusion. She has been tolerating it well. She does not know the name of the medication. We did talk about her CT scan of the chest. She did have areas of ground-glass opacities and nodular densities that need to have follow-up. She did have a CT scan scheduled but she canceled it. She start since she was feeling well that she did not needed. Explained to her that that is okay specially since she started a new treatment protocol. Will have her continue this treatment protocol and plan to repeat her CT scan done in June as long she is doing okay. If she develops any worsening symptoms or any concerning symptoms she will call in order to address his an earlier time. Otherwise will follow-up sometime June after her CT scan. If she has any issues prior to that she call for an earlier assessment. 04/16/2024 the patient is here for sick visit. He has had positive sick contacts for the last week from her son. She started developing worsening cough shortness of breath. She does have immunocompromised conditions because of her connective tissue disease. She has had a fever the last few days. She went to an urgent care she was tested negative for both the flu and also COVID. Though she still continues to have significant coughing. When she arrived to the office she felt diaphoretic. She did have a slight temperature 100.6 degrees. She was also tachycardic she is dehydrated. We did swab her again for RSV COVID and flu. Will get the results in the meantime will start treating her for bronchitis. [facility] Medical History (Updated 04/16/24 @ 22:07 by Phill Cole MD) Dyspnea Chest pain Cryptogenic organizing pneumonia Pulmonary nodules Lupus Social History Patient Tobacco Use Status: Never used Tobacco Review of Systems Const Denies fatigue and Denies fever(s) Eyes Denies change in vision ENT Reports nasal congestion Card Denies dyspnea on exertion Resp Denies cough, Denies dyspnea on exertion and Denies wheezing GI Reports no additional complaints Musc Reports back pain, Reports myalgias, Reports arthralgias and Reports joint swelling Skin/Breast Reports rash Neuro Reports no additional complaints Endo Denies fatigue Taran/Lymph Denies lymphadenopathy Aller/Immun Denies wheezing Physical Exam Vital Signs: Last Vital Signs Pulse 132 H 04/16/24 14:24 BP 110/62 04/16/24 14:24 Pulse Ox 92 04/16/24 14:24 Oxygen Delivery Method Room Air 04/16/24 14:24 BMI result Body Mass Index 26.6 Const General: comfortable HEENT Head: Yes normocephalic Neck Neck: Yes supple Chest Chest palpation & inspection: normal inspection of the chest Resp Effort & Inspection: normal respiratory effort Auscultation: clear to auscultation bilaterally and no rhonchi Cardio Rate: regular rate Rhythm: regular rhythm Heart sounds: S1 normal heart sound present and S2 normal heart sound present GI Palpation (GI): Soft to palpation Skin General skin exam: no rashes or lesions noted Extrem General: Yes no clubbing, cyanosis or edema Assessment & Plan Assessment & Plan (1) Fever: Code(s): R50.9 - Fever, unspecified Category: Medical Qualifiers: Fever type: unspecified Qualified Code(s): R50.9 - Fever, unspecified (2) Influenza A: Code(s): J10.1 - Influenza due to other identified influenza virus with other respiratory manifestations Category: Medical (3) Lupus: Code(s): M32.9 - Systemic lupus erythematosus, unspecified Category: Medical (4) Pulmonary nodules: Code(s): R91.8 - Other nonspecific abnormal finding of lung field Category: Medical (5) Cryptogenic organizing pneumonia: Code(s): J84.116 - Cryptogenic organizing pneumonia Category: Medical (6) Chest pain: Code(s): R07.9 - Chest pain, unspecified Category: Medical Qualifiers: Chest pain type: intercostal pain Qualified Code(s): R07.82 - Intercostal pain (7) Dyspnea: Code(s): R06.00 - Dyspnea, unspecified Category: Medical Qualifiers: Dyspnea type: dyspnea on exertion Qualified Code(s): R06.09 - Other forms of dyspnea Plan start Doxycycline start Tamiflu Prednisone if worsens cough medicine MAGNOLIA as needed continue plaquenil F/U 4-6 months Orders: Orders SARS-CoV2/FLU/RSV Today R50.9 - Fever, unspecified Medications: New doxycycline hyclate 100 mg PO BID 20 caps 0RF 10 days dextromethorphan-guaifenesin 60-1,200 mg ER (Mucinex DM) 1 tab PO Q12H 28 tabs 0RF 14 days benzonatate 200 mg PO BID PRN 60 caps 0RF cough 30 days prednisone PO daily; Take 2 tabs daily x 5 days, then 1 tablet daily x 5 days 15 tabs 0RF 10 days Coding Level of Care Code Est Pt Level 4 (04327) Diagnoses Fever, unspecified fever cause R50.9 Fever type: unspecified Influenza A J10.1 Lupus M32.9 Pulmonary nodules R91.8 Cryptogenic organizing pneumonia J84.116 Intercostal pain R07.82 Chest pain type: intercostal pain Dyspnea on exertion R06.09 Dyspnea type: dyspnea on exertion Time Spent (min) 16
[2024-04-16 14:24] VITALS: BP 110/62; PULSE 132; O2SAT 92; BMI 26.6
--- OUTSIDE RECORDS SUMMARY | 2024-04-16 14:24 | XMS_ITS | Referral Summary ---
Author Organization [facility] Address [address] [place] [address] Care Team Providers Care Community Case Manager Name Role Phone Karen Chaudhary MD Primary Care Provider Encounters Date Type Department Care Team Description 03/30/2024 11:45 AM EST Infusion [facility] [address] [place] [id number] Constantin Patterson MD Obrien, Kelly, RN 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, unspecified SLE type (CMS/HCC) (HCC) (Primary Dx) 03/15/2024 myChart Message [facility] [address] [place] [address] Grades 1 Thru 5 Teacher: Constantin Valentino MD Goodmorning 03/02/2024 12:00 PM EST Infusion [facility] Infusion [address] [address] Constantin Patterson MD Gonynor, Courtney, EMBER 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, unspecified SLE type (CMS/HCC) (HCC) (Primary Dx) 02/10/2024 1:00 PM EST Office Visit [facility] D[facility] 4th [address] [place] [address], [place] [id number] Grades 1 Thru 5 Teacher: Sarah Jurado MD Discoid lupus (Primary Dx); High risk medication use; DLE (discoid lupus erythematosus); 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, unspecified SLE type (CMS/HCC) (HCC) 02/08/2024 Refill [facility] Dermatology [facility] 4th Floor [address] [facility], [place] [address] Grades 1 Thru 5 Teacher: Colton Cho MD 02/03/2024 11:00 AM EST Infusion [facility] [address] [place] [phone] Constantin Patterson MD DorothyRosa Elena clark RN 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, unspecified SLE type (CMS/HCC) (HCC) (Primary Dx) from Last 3 Months Allergies No known active allergies Medications hydrocortisone 2.5% ointmentIndication s:Bee sting, accidental or unintentional, initial encounter Apply to affected area twice daily as needed, and taper with improvement. 28.35 g 9 Active ferrous sulfate 325 mg (65 mg iron) tablet Take 1 tablet by mouth daily. 0 Active ergocalciferol (VITAMIN D2) 1,250 mcg (50,000 unit) capsule TK 1 C PO Q WK 0 Active diclofenac (VOLTAREN) 75 mg EC tablet Take 75 mg by mouth 2 times a day. 0 Active cetirizine (ZyrTEC) 10 mg tablet Take 20 mg by mouth 2 times a day. 2 Active Ventolin HFA 90 mcg/actuation inhaler INHALE 2 PUFFS FOUR TIMES DAILY NEEDED FOR SHORTNESS OF BREATH OR WHEEZING 3 Active ketoconazole (NIZORAL) 2% shampooIndications :DLE (discoid lupus erythematosus) Apply to scalp and lather, leave in for 5 minutes, then rinse. Use 2-3 times weekly. 120 mL 5 3 Active betamethasone, augmented, (DIPROLENE) 0.05% ointmentIndication s:Discoid lupus Please apply small amount to the rash on body (elbows), twice daily until improving, then gradually reduce to once a day for ~2 weeks and then 2-3 times a week. Do not use on face, groin or skin folds. 30 g 4 Active methotrexate (TREXALL) 2.5 mg tabletIndications: 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, unspecified SLE type (CMS/HCC) (HCC) Take 6 tablets (15 mg total) by mouth once a week. 72 tablet 2 4 Active metoprolol tartrate (LOPRESSOR) 25 mg tablet SMARTSI Tablet(s) By Mouth Twice Daily 4 Active fluocinolone (SYNALAR) 0.01 % external solutionIndication s:DLE (discoid lupus erythematosus) Apply to the scalp nightly to areas of scaling or itching. 90 mL 3 4 Active folic acid (FOLVITE) 1 mg tabletIndications: DLE (discoid lupus erythematosus) Take 2 tablets (2 mg total) by mouth once a day. 30 tablet 5 4 05/11/19 25 Active tacrolimus (PROTOPIC) 0.1 % ointmentIndication s:DLE (discoid lupus erythematosus) APPLY TOPICALLY TO THE AFFECTED AREAS OF THE FACE 1 TO 2 TIMES A DAY 60 g 3 4 Active triamcinolone acetonide (KENALOG) 0.1% ointmentIndication s:Discoid lupus Apply topically to the affected area 2 times a day as needed for rash. On torso, arms and hands, NOT FOR FACE 180 g 3 4 Active hydroxychloroquine (PLAQUENIL) 200 mg tabletIndications: Discoid lupus Take 1.5 tablets (300 mg total) by mouth once a day. 135 tablet 1 4 08/09/19 25 Active Active Problems Problem Noted Date Diagnosed Date Anemia 11/30/2022 Overview (02/18/2023): Last Assessment & Plan: Its mild, I will re-check CBC and iron panel after this possible iron supplement prescription Dyspnea on exertion 08/30/2022 Systemic lupus erythematosus (CMS/HCC) 7 Overview (02/18/2023): Last Assessment & Plan: Labs reviewed with patient She may continue with same plaquenil dose Patient has upcoming appointments with sepcialists Last Assessment & Plan: Referral to a different rheumatology office done today patient will like to go to [facility], her cook night is also at [facility] Wheelchair prescription will be done today I instructed patient to go to medical records to submit RMV form for platter Social History Tobacco Use Types Packs/Day Years Used Date Smoking Tobacco: Never Smokeless Tobacco: Never Tobacco Cessation:Counseling Given: Not Answered Alcohol Use Standard Drinks/Week Comments Not Currently 0 (1 standard drink = 0.6 oz pur e alcohol) Comments Unknown Sex and Gender Information Value Date Recorded Sex Assigned at Female 05/20/2023 4:21 PM EDT Legal Sex Female 11:35 AM EDT Gender Identity Female 05/20/2023 4:21 PM EDT Sexual Orientation Not on file Last Filed Vital Signs Vital Sign Reading Time Taken Comments Blood Pressure 128/80 03/30/2024 11:55 AM EST Pulse 100 03/30/2024 11:55 AM EST Temperature 36.6 ??C (97.9 ??F) 03/30/2024 1 1:55 AM EST Respiratory Rate 16 03/30/2024 11:5 5 AM EST Oxygen Saturation 100% 03/30/2024 11: 55 AM EST Inhaled Oxygen Concentration - - Weight 66.2 kg (145 lb 15.1 oz) 025 11:55 AM EST Height 157.5 cm (5' 2 ) 07/02/2023 2:14 PM EDT Body Mass Index 26.69 07/02/2023 2:14 PM EDT Plan of Treatment Upcoming Encounters Date Type Department Care Team (Late st Contact Info) Description 04/27/2024 10:45 AM EST Infusion [facility] [address] [place] [phone] Constantin Patterson MD [address] [place] [phone] 05/25/2024 3:30 PM EDT Infusion [facility] [address] [place] [address] Constantin Patterson MD [address] [place] [phone] 06/02/2024 12:00 PM EDT Follow-Up [facility] [address] [place] [phone] Grades 1 Thru 5 Teacher: Constantin Valentino MD [address] [place] [address] [phone] Procedures * Due to [place] state law, this organization might not be sharing negative HIV tests. Procedure Name Priority Date/Time Associated Diagnosis Comments HEPATITIS C ANTIBODY W/REFLEX TO HCV RNA, QUANTITATIVE PCR Routine 05/20/2023 4:20 PM EDT High risk medication use from Last 3 Months or Most Recently Relevant to Health Maintenance Results * Due to [place] Security Scorecard law, this organization might not be sharing negative HIV tests. * Hepatitis C Antibody w/Reflex to HCV RNA, Quantitative PCR (05/20/2023 4:20 PM EDT) Hepatitis C Antibody NON-REACT SHRUTHI NON-REACT SHRUTHI 05/21/2023 12:59 AM EDT [facility] Comment: HCV antibody was non-reactive. There is no laboratory evidence of HCV infection. In most cases, no further action is required. However, if recent HCV exposure is suspected, a test for HCV RNA (test code 86842) is suggested. For additional information please refer to http://education.Bancha.skyrockit/faq/KJH66b7 (This link is being provided for informational/ educational purposes only.) Blood Structure of peripheral vein / Unknown Venipuncture / Unknown 05/20/2023 4:20 PM EDT 05/20/2023 4:20 PM EDT Narrative [facility] - 05/21/2023 12:59 AM EDT [facility] Received Date: Colton Cici Yao MD LAB BLOOD ORDERABL ES Final Result [facility] [address] [facility] [address]rd [address], [place] [address], [place] [phone] [facility] [address] [facility] [address], [place] [address], [place] [phone] from Last 3 Months or Most Recently Relevant to Health Maintenance Insurance MEDICARE [facility] Care Teams Community Case Manager Relationship Specialty Start Date End Date Karen Chaudhary MD [address] [place] [address] PCP - General 03/16/21
--- OUTSIDE RECORDS SUMMARY | 2024-04-16 14:24 | XMS_ITS | Encounter Summary ---
Author Organization [facility] Address [address] [place] [address] Care Team Providers Care Assistant Store Director Name Role Phone Karen Chaudhary MD Primary Care Provider Reason for Visit * Reason Comments Skin Problem Lupus f/u Encounter Details Date Type Department Care Team (Latest Contact Info) Description 02/10/2024 1:00 PM EST Office Visit [facility] Dermatology Clinic 4th Floor [address] [place] [address], [place] [address] Wet Trimmer: Sarah Jurado MD [address] [place] [address] Dermatology [place], [place] [phone] Discoid lupus (Primary Dx); High risk medication use; DLE (discoid lupus erythematosus); 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, unspecified SLE type (CMS/HCC) (HCC) Social History Tobacco Use Types Packs/Day Years Used Date Smoking Tobacco: Never Smokeless Tobacco: Never Alcohol Use Standard Drinks/Week Comments Not Currently 0 (1 standard drink = 0.6 oz pur e alcohol) Comments Unknown Sex and Gender Information Value Date Recorded Sex Assigned at Female 05/20/2023 4:21 PM EDT Legal Sex Female 11:35 AM EDT Gender Identity Female 05/20/2023 4:21 PM EDT Sexual Orientation Not on file documented as of this encounter Progress Notes * Colton Yao MD - 03/29/2024 11:17 AM EST I saw and evaluated the patient. Case discussed with the resident/fellow and I agree with the findings and plan as documented in the resident's/fellow's note. * Sarah Daniels MD - 02/10/2024 12:57 PM EST DERMATOLOGY OFFICE VISIT CHIEF COMPLAINT: SLE, DLE, alopecia HPI: Allyson Mujica is a 33 y.o. female who is seen in follow up at [facility] Departmentof Dermatology for the above. LV with dermatology 11/2023 At which time was about to start anifrolumab infusions, and planned to continue her hydroxychloroquine, methotrexate, and topicals. Today: - Slow improvement of the skin - Has done 4 infusions and continues on her methotrexate and hydroxychloroquine - using protopic on face and triamcinolone on the body - not itchy, no burning of skin - hair is re-growing - no side effects from anifrolumab infusions MEDICATIONS, ALLERGIES, PAST MEDICAL HISTORY, FAMILY HISTORY and SOCIAL HISTORY All were reviewed in patient's chart. REVIEW OF SYSTEMS: Patient is feeling well and has no complaints other than those noted above. PHYSICAL EXAM: The patient is a well-appearing female in no distress with a pleasant mood. - Smooth hyperpigmented brown patches on the bilateral elbows, forearms, ears (including conchae), cheeks. Compared to prior, there is no longer any scale or erythema at these sites. 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 Refilled today. -continue taking oral MTX 15 mg weekly in addition to folic acid daily. Refilled folic acid. -continue fluocinolone scalp solution nightly, refilled today -continue triamcinolone 0.1% ointment twice daily as needed for affected areas on arms and elbows -continue tacrolimus 0.1% ointment daily to the face. - we discussed with patient expectations and that the pigmentary changes are not signs of activity,but signs of post-inflammatory hyperpigmentation. These changes are very slow to improve and some areas of scarring/pigment may be permanent but we do expect ongoing improvement. - Discussed RMV tinting as medical necessity, patient will bring us the form 2. High risk medication use (HCQ and MTX) - Reviewed 11/11 labs CBC and CMP, has stable anemia - Eye exam 10/2023 normal Return for 4 months DLE. Sarah Daniels MD Dermatology Resident PGY-3 Discussed with attending, Dr. Bolanos Medical Records Clerk Used: Yes Medical Records Clerk Used For: Patient Language interpreted: Asset Accountant name: Mina Type of Resource Used: iPad Medical Records Clerk Information Interpreted: Entire Visit including history, consent, and plan Assistive Communication Needs: no documented in this encounter Plan of Treatment Upcoming Encounters Date Type Department Care Team (Late st Contact Info) Description 04/27/2024 10:45 AM EST Infusion [facility] [address] [place] [phone] Constantin Patterson MD [address] [place] [phone] 05/25/2024 3:30 PM EDT Infusion [facility] [address] [place] [address] Constantin Patterson MD [address] [place] [phone] 06/02/2024 12:00 PM EDT Follow-Up [facility] Rhe[facility]ology [facility] [address] [place] [address] Wet Trimmer: Constantin Valentino MD [address] [place] [phone] documented as of this encounter Visit Diagnoses Diagnosis Discoid lupus- Primary Lupus erythematosus High risk medication use DLE (discoid lupus erythematosus) Lupus erythematosus 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, unspecified SLE type (CMS/HCC) (HCC) documented in this encounter Care Teams Assistant Store Director Relationship Specialty Start Date End Date Karen Chaudhary MD [address] [place] [phone] PCP - General 03/16/21 documented as of this encounter
--- OUTSIDE RECORDS SUMMARY | 2024-04-16 14:24 | XMS_ITS | Encounter Summary ---
Author Organization [facility] Address [address] [place] [address] Care Team Providers Care Director Of Sales Name Role Phone Karen Chaudhary MD Primary Care Provider Encounter Details Date Type Department Care Team (Late st Contact Info) Description 03/15/2024 myChart Message [facility] [address] [place] [address] Assistant Professor Of Marine Biology: Constantin Valentino MD [address] [place] [address] [phone] Goodmorning Social History Tobacco Use Types Packs/Day Years [...] on file documented as of this encounter Plan of Treatment Upcoming Encounters Date Type Department Care Team (Late st Contact Info) Description 04/27/2024 10:45 AM EST Infusion [facility] [address] [place] [address] Constantin Patterson MD [address] [place] [address] [phone] 05/25/2024 3:30 PM EDT Infusion [facility]fusion [facility] [address] [place] [address] Constantin Patterson MD [address] [place] [address] 06/02/2024 12:00 PM EDT Follow-Up [facility] [address] [place] [address] Assistant Professor Of Marine Biology: Constantin Valentino MD [address] [place] [address] documented as of this encounter Visit Diagnoses Not on filedocumented in this encounter Care Teams Director Of Sales Relationship Specialty Start Date End Date Karen Chaudhary MD [address] [place] [phone] PCP - General 03/16/21 documented as of this encounter
--- OUTSIDE RECORDS SUMMARY | 2024-04-16 14:24 | XMS_ITS | Clinical Summary ---
Author Organization [facility] Address [address] [place] [address] Care Team Providers Care Powertrain Engineer Name Role Phone Karen Chaudhary MD Primary Care Provider Allergies No known active allergies Medications hydrocortisone [...] today patient will like to go to [facility], her supervisor files is also at [facility] Wheelchair prescription will be done today I instructed patient to go to medical records to submit RMV form for platter Encounters Date Type Department Care Team Description 03/30/2024 11:45 AM EST Infusion [facility] Infusion Clinic [address] [place] [address] Constantin Patterson MD Obrien, Kelly, RN 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, unspecified SLE type (CMS/HCC) (HCC) (Primary Dx) 03/15/2024 myChart Message [facility] Rheumatology Clinic [address] [place] [address] Microbial Specialist: Constantin Valentino MD Gooddcmarilu 03/02/2024 12:00 PM EST Infusion [facility] Infusion [address] [address] Constantin Patterson MD Gonynor, Courtney, EMBER 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, unspecified SLE type (CMS/HCC) (HCC) (Primary Dx) 02/10/2024 1:00 PM EST Office Visit [facility] Dermatology Clinic 4th [address] [place] [phone] Microbial Specialist: Sarah Jurado MD Discoid lupus (Primary Dx); High risk medication use; DLE (discoid lupus erythematosus); 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, unspecified SLE type (CMS/HCC) (HCC) 02/08/2024 Refill [facility] Dermatology Clinic 4th Floor [address] [place] [address], [place] [phone] Microbial Specialist: Colton Cho MD 02/03/2024 11:00 AM EST Infusion [facility] Infusion Clinic [address] [place] [address] Constantin Patterson MD Overstreet, Belinda, RN 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, unspecified SLE type (CMS/HCC) (HCC) (Primary Dx) from Last 3 Months Social History Tobacco Use Types Packs/Day Years [...] Info) Description 04/27/2024 10:45 AM EST Infusion [facility] Infusion Clinic [address] [place] [address] Constantin Patterson MD [address] [place] [address] 05/25/2024 3:30 PM EDT Infusion [facility] Building Infusion Clinic [address] [place] [address] Constantin Patterson MD [address] [place] [address] 06/02/2024 12:00 PM EDT Follow-Up [facility] Rheumatology [facility] [address] [place] [address] [phone] Microbial Specialist: Constantin Valentino MD [address] [place] [address] [phone] Health Maintenance Due Date Last Done Comments HPV and Pap Smear 1992 Varicella Vaccines (1 of 2 - 13+ 2-dose series) 01/05/2005 Hepatitis B Vaccines (1 of 3 - 19+ 3-dose series) 01/05/2011 DTaP,Tdap,and Td Vaccines (1 - Tdap) 01/05/2014 Cervical Cancer Screening 04/10/2016 Pap Smear 04/10/2016 04/10/2013 COVID-19 Vaccine ( - 2023-2 5 season) 2023 Alcohol/Substance Use Screening 03/04/2024 Depression Screening and Follow-Up 03/04/2024 Social Drivers of Health Annual Screening 03/04/2024 RSV Vaccine (60+ years old and patients) (1 - 1-dose 75+ series) 01/05/2067 HIV Screening Completed 08/30/2022 Hepatitis C Screening Completed 05/20/2023 , 08/30/2022, 04/30/2016 Influenza Vaccine Completed 11/26/2023, 11/30/2022, 01/22/2020 Pneumococcal Vaccine: Pediatric (0-5 Years) and At-Risk Patients (6-50 Years) Aged Out 11/26/2023 No longer eligible based on patient's age to complete this topic Procedures * Due to [place] state law, this organization might not be sharing negative HIV tests. Procedure Name Priority Date/Time Associated Diagnosis Comments HEPATITIS C ANTIBODY W/REFLEX TO HCV RNA, QUANTITATIVE PCR Routine 05/20/2023 4:20 PM EDT High risk medication use from Last 3 Months or Most Recently Relevant to Health Maintenance Results * Due to [place] state law, this organization might not be sharing negative HIV tests. * Hepatitis C Antibody w/Reflex to HCV RNA, Quantitative PCR (05/20/2023 4:20 PM EDT) Hepatitis C Antibody NON-REACT SHRUTHI NON-REACT SHRUTHI 05/21/2023 12:59 AM EDT [facility] [employer] Comment: HCV antibody was non-reactive. There is no laboratory evidence of HCV infection. In most cases, no further action is required. However, if recent HCV exposure is suspected, a test for HCV RNA (test code 44094) is suggested. For additional information please refer to http://education.[employer]/faq/KXS06f7 (This link is being provided for informational/ educational purposes only.) Blood Structure of peripheral vein / Unknown Venipuncture / Unknown 05/20/2023 4:20 PM EDT 05/20/2023 4:20 PM EDT Narrative [facility] - 05/21/2023 12:59 AM EDT [facility] Received Date: Colton Yao MD LAB BLOOD ORDERABL ES Final Result [facility] [address] [facility] 3rd Floor, [place] [address], Site[facility] [address] [facility] 3rd Floor, [place] [address], from Last 3 Months or Most Recently Relevant to Health Maintenance Insurance MEDICARE [facility] Care Teams Powertrain Engineer Relationship Specialty Start Date End Date Karen Chaudhary MD [address] [place] [address] PCP - General 03/16/21
--- OUTSIDE RECORDS SUMMARY | 2024-04-16 14:24 | XMS_ITS | Clinical Summary ---
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 30 tablet 2 06/13/2023 06/13/19 25 Active Active Problems Problem Noted Date Diagnosed Date Cervical cancer screening 11/26/2023 Overview (11/26/2023): PAP done 01/30/[address] Giraldo, records to be obtained Assessment & Plan (11/26/2023 3:16 PM EDT): PAP done 01/30/[address] Giraldo, records to be obtained Recurrent epistaxis 11/30/2022 Anemia 11/30/2022 Assessment & Plan (11/30/2022 12:27 PM EDT): Its mild, I will re-check CBC and iron panel after this possible iron supplement prescription Lung nodules 11/30/2022 Assessment & Plan (11/30/2022 12:22 PM EDT): I don't see the CT order by specialist, I will lace it again today after results I advise to call the for f/u Lung mass 08/30/2022 Assessment & Plan (02/12/2024 11:26 AM EST): Continue to follow with pulmonology Encounter for preventive health examination 08/03 Assessment & Plan (08/30/2022 4:52 PM EDT): Please see HPI Systemic lupus erythematosus arthritis Assessment & Plan (06/13/2023 12:14 PM EDT): I will give her a pulse of prednisone for lupus/arthritis flare I renewed her prescriptions for plaquenil and folic acid I explain to patient why methotrexate was prescribed, I discuss possible side effects and I also explain it is likely that is going to be beneficial long-term to put her lupus 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, patient understood and agreed to start medication as soon as she is out of the flare and to have a further conversation wit rheumatology, she tells me she has an appointment next month Assessment & Plan (08/30/2022 4:53 PM EDT): Referral to a different rheumatology office done today patient will like to go to [facility], 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 [facility] Wheelchair prescription will be done today I instructed patient to go to medical records to submit RMV form for platter Dyspnea on exertion 08/30/2022 Assessment & Plan (02/12/2024 11:26 AM EST): Patient continues to follow with cardiology she had cardiac MR done and will f/u with them regarding results and next steps Systemic lupus erythematosus 04/03/2022 Assessment & Plan (02/12/2024 11:27 AM EST): Continue to follow with dermatology and rheumatology Assessment & Plan (11/26/2023 3:16 PM EDT): Stable, continue to follow with rheumatology, dermatology, cardiology and pulmonology Assessment & Plan (12/20/2022 12:11 PM EDT): Labs reviewed with patient She may continue with same plaquenil dose Patient has upcoming appointments with sepcialists Assessment & Plan (11/30/2022 12:28 PM EDT): I will recheck labs For now continue with same plaquenil dose I will refer her again to rheumatology [facility] Encounters Date Type Department Care Team Description 02/12/2024 9:15 AM EST Office Visit [facility] MED[facility] [address] [place], [place] [phone] Karen Chaudhary MD Systemic lupus erythematosus, unspecified SLE type, unspecified organ involvement status (CMS/HCC) (Primary Dx); Lung mass; Dyspnea on exertion 02/12/2024 Travel 02/05/2024 Patient Outreach [facility] [address] [place], [place] [phone] Karen Chaudhary MD Pre-visit Planning (SDOH was completed on 06/04/2023) from Last 3 Months Immunizations Name Administration Dates Next Due INFLUENZA INJECTABLE QUADRIV ALANT CCIIV4 MDCK Multi-dose vial 01/22/2020 Influenza injectable quadrivalent preservative f ree 11/30/2022 Influenza, seasonal, injectable, preservative fr ee 11/26/2023 Pneumococcal Conjugate PCV 20 11/26/2023 Rho(D)-IG IM 04/09/2012 Social History Tobacco Use Types Packs/Day Years Used Date Smoking Tobacco: Never Passive Smoke Exposure: Never Smokeless Tobacco: Never Tobacco Cessation:Counseling Given: Not Answered Alcohol Use Standard Drinks/Week Comments Never 0 (1 standard drink = 0.6 oz pur e alcohol) Depression Answer Date Recorded Patient Health Questionnaire-9 Score 0 11/26/2023 Patient Health Questionnaire-9 Score 0 11/26/2023 Last PHQ-9: Questionnaire Data Not on file 0 11/26/2023 Housing Stability Answer Date Recorded What is your housing situation today? I have adithya tolentino 12/19/[address] you li ve. Do you have problems with any of the following? None of the above 12/19/2022 Food Insecurity Answer Date Recorded Within the past 12 months, y ou worried that your food would run out before you got money to buy more: Never True 12/19/2022 Within the past 12 months,th e food you bought just didn't last and you didn't have enough money to get more: Never True Transportation Answer Date Recorded In the past 12 months, has l ack of transportation kept you from medical appts, meetings, work or from getting things needed for daily living? No 12/19/2022 Utilities Answer Date Recorded In the past 12 months, has t he electric, gas, oil or water company threatened to shut off services in your home? No 12/19/2022 Depression Answer Date Recorded Patient Health Questionnaire-2 Score 0 11/26/2023 Comments Unknown Sex and Gender Information Value Date Recorded Sex Assigned at Female 01/01/2022 10:36 AM EDT Legal Sex Female 10:36 AM EDT Gender Identity Female 01/01/2022 10:36 AM EDT Sexual Orientation Choose not to disclose 2021 10:36 AM EDT Last Filed Vital Signs Vital Sign Reading Time Taken Comments Blood Pressure 122/72 02/12/2024 9:26 AM EST Pulse 88 02/12/2024 9:26 AM EST Temperature 36.7 ??C (98 ??F) 02/12/2024 9:26 AM EST Respiratory Rate 16 02/12/2024 9:26 AM EST Oxygen Saturation 100% 11/26/2023 2:00 PM EDT Inhaled Oxygen Concentration - - Weight 66.7 kg (147 lb) 02/12/2024 9:26 AM EST Height 157.5 cm (5' 2 ) 02/12/2024 9:26 AM EST Body Mass Index 26.89 02/12/2024 9:26 AM EST Plan of Treatment Health Maintenance Due Date Last Done Comments Alcohol/Substance Use Screening 2004 Family Planning (PISQ) 01/05/2007 DTaP/Tdap/Td Vaccines (1 - Tdap) 01/05/2011 Hepatitis B Vaccines (1 of 3 - 19+ 3-dose series) 01/05/2011 HPV/Cotest 01/05/2022 Cervical Cancer Screening 09/02/2023 Pap Smear 09/02/2023 09/01/2020 COVID-19 Vaccine (1 - 2023-2 5 season) 2023 SDOH Screening 06/03/2024 06/04/2023 Depression Screening 11/25/2024 11/26/2023, 11/26/2023 Tobacco Screening 02/11/2025 02/12/2024 Zoster Vaccines (1 of 2) 01/05/2042 RSV Patients and Patients Aged 60 years or older (1 - 1-dose 75+ series) 01/05/2067 HIV Screening Completed 08/30/2022, 08/10/2020, 02/18/2019 Hepatitis C Screening Completed 08/30/2022 , 08/10/2020, 02/18/2019 Influenza Vaccine Completed 11/26/2023, 11/30/2022, 01/22/2020 Pneumococcal Vaccine: Pediatrics (0 to 5 Years) and At-Risk Patients (6 to 49) Years) Aged Out 11/26/2023 No longer eligible b ased on patient's age to complete this topic HIB Vaccines Aged Out No longer eligi ble based on patient's age to complete this topic HPV Vaccines Aged Out No longer eligi ble based on patient's age to complete this topic Hepatitis A Vaccines Aged Out No long er eligible based on patient's age to complete this topic IPV Vaccines Aged Out No longer eligi ble based on patient's age to complete this topic Meningococcal Vaccine Aged Out No abdulkadir michelle eligible based on patient's age to complete this topic RSV under 20 months Aged Out No longe r eligible based on patient's age to complete this topic Rotavirus Vaccines Aged Out No longer eligible based on patient's age to complete this topic Procedures Procedure Name Priority Date/Time Associated Diagnosis Comments HEPATITIS C AB W/REFL TO HCV RNA, QN, PCR Routine 08/30/2022 11:32 AM EDT Encounter for preventive health examination HIV 1/2 ANTIGEN/ANTIBODY, FOURTH GENERATION W/RFL Routine 08/30/2022 11:32 AM EDT Encounter for preventive health examination THINPREP PAP Routine 09/01/2020 8:50 AM EDT from Last 3 Months or Most Recently Relevant to Health Maintenance Results * Hepatitis C Antibody with Reflex to HCV, RNA, Quantitative, Real-Time PCR (08/30/2022 11:32 AM EDT) Hepatitis C Antibody NON-REACT SHRUTHI NON-REACT SHRUTHI [employer] [facility] Comment: HCV antibody was non-reactive. There is no laboratory evidence of HCV infection. In most cases, no further action is required. However, if recent HCV exposure is suspected, a test for HCV RNA (test code 69208) is suggested. For additional information please refer to http://[employer]/faq/VRA92v6 (This link is being provided for informational/ educational purposes only.) Blood Venous blood specimen / Unknown 08/30/2022 11:32 AM EDT 08/30/2022 11:43 AM EDT Narrative [facility] - 08/31/2022 5:34 AM EDT FASTING:YES FASTING: YES Karen Kumar MD LAB BLOOD ORDERABLES Final Result [facility] [address], [place] [address] [employer] [address] [place] [address] * HIV-1/2 Antigen and Antibodies, Fourth Generation, with Reflexes (08/30/2022 11:32 AM EDT) Pathologist [facility] HIV Antigen/Antibody, 4th Generation NON-REAC TIVE NON-REAC TIVE [employer] Comment: HIV-1 antigen and HIV-1/HIV-2 antibodies were not detected. There is no laboratory evidence of HIV infection. PLEASE NOTE: This information has been disclosed to you from records whose confidentiality may be protected by state law. ??If your state requires such protection, then the state law prohibits you from making any further disclosure of the information without the specific written consent of the person to whom it pertains, or as otherwise permitted by law. A general authorization for the release of medical or other information is NOT sufficient for this purpose. ?? For additional information please refer to http://education.[employer]/faq/XTL892 (This link is being provided for informational/ educational purposes only.) The performance of this assay has not been clinically validated in patients less than 2 years old. Blood Venous blood specimen / Unknown 08/30/2022 11:32 AM EDT 08/30/2022 11:43 AM EDT Narrative [facility] - 08/31/2022 5:34 AM EDT FASTING:YES FASTING: YES Karen Kumar MD LAB BLOOD ORDERABLES Final Result [facility] [address], [place] [address] [employer] [facility] [address] [place] [address] * THINPREP PAP (09/01/2020 8:50 AM EDT) Clinical Information: None given [facility] COMMENT SEE COMMENT [facility] Comment: EXPLANATORY NOTE: ? The Pap is a screening test for cervical cancer. It is ?? not a diagnostic test and is subject to false negative ?? and false positive results. It is most reliable when a ?? satisfactory sample, regularly obtained, is submitted ?? with relevant clinical findings and history, and when ?? the Pap result is evaluated along with historic and ?? current clinical information. ?? Processing [employer] Supervisor : SEE COMMENT [facility] Comment: , CT(ASCP) CT screening location: [address] ??[address] Interpretation/R esult: Negative for intraepithelial lesion or malignancy. [facility] LMP: NONE GIVEN [facility] Prev. BX: NONE GIVEN [facility] Prev. PAP: NONE GIVEN [facility] Review Processing [employer] And [employer] Supervisor : SEE COMMENT [facility] Comment: BJ, CT(ASCP) CT screening location: [address] ??[address] SOURCE: None given [facility] Statement Of Adequacy: SEE COMMENT [facility] Comment: Satisfactory for evaluation. Endocervical/transformation zone component present. Age and/or menstrual status not provided 09/01/2020 8:50 AM EDT Karen Kumar MD LAB PATHOLOGY ORDERAB LES Final Result [facility] [address] [place] [address], from Last 3 Months or Most Recently Relevant to Health Maintenance Insurance MEDICARE Member Subscriber Plan / Payer (Ef fective 2022-Present) Name:Allyson Merino Member ID:[id number] Relation to Subscriber:Self Name:Victoria MujicaAllyson Subscriber ID:[id number] Payer ID:[id number] Group ID:Not on file Type:Medicare Address: [facility] [address] [address] [facility] Care Teams 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
--- OUTSIDE RECORDS SUMMARY | 2024-04-16 14:24 | XMS_ITS | Encounter Summary ---
Author Organization [facility] Address [address] [place] [address] Care Team Providers Care Serials Librarian Name Role Phone Karen Chaudhary MD Primary Care Provider Reason for Visit * Episode Based Medications (Routine) - Authorized Specialty Diagnoses / Procedures Referred By Contac t Referred To Contact Diagnoses 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, unspecified SLE type (CMS/HCC) (HCC) Constantin Patterson MD [address] [place] [address] Phone: tel: fax: [facility] [address] [place] [address] Phone: tel: Referral ID Status Reason Start Date Expiration Date V isits Requested Visits Authorized [id number] Authorized 08/13/2023 02/11/2025 6 6 Encounter Details Date Type Department Care Team (Late st Contact Info) Description 03/30/2024 11:45 AM EST Infusion [facility] [address] [place] [address] Constantin Patterson MD [address] [place] [address] [phone] Oly Lehman, RN 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, unspecified SLE type (CMS/HCC) (HCC) (Primary Dx) Social History Tobacco Use Types Packs/Day Years [...] on file documented as of this encounter Last Filed Vital Signs Vital Sign Reading [...] 15.1 oz) 025 11:55 AM EST Height - - Body Mass Index 26.69 07/02/2023 2:14 PM EDT documented in this encounter Nursing Notes * Oly Lehman RN - 03/30/2024 11:45 AM EST Patient presents here today for Anifrolumab infusion Pt denies fever, infection, antibiotics within the last 7 days PIV placed, +BR Tolerated treatment without incident PIV removed AVS declined - uses MyChart Next appointment in place Dc'd ambulatory, to call with any concerns documented in this encounter Plan of Treatment Upcoming Encounters Date Type Department Care Team (Late st Contact Info) Description 04/27/2024 10:45 AM EST Infusion [facility] Infusion Clinic [address] [place] [address] Constantin Patterson MD [address] [place] [phone] 05/25/2024 3:30 PM EDT Infusion [facility] Infusion [facility] [address] [place] [address] Constantin Patterson MD [address] [place] [address] 06/02/2024 12:00 PM EDT Follow-Up [facility] Rheumatology Clinic [address] [place] [phone] Ship'S Electronic Warfare Officer: Constantin Valentino MD [address] [place] [phone] documented as of this encounter Visit Diagnoses Diagnosis 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, unspecified SLE type (CMS/HCC) (HCC)- Primary documented in this encounter Administered Medications Inactive Administered Medications - up to 3 most recent administrations Medication Order MAR Action Action Date Dose Rate Site anifrolumab-fnia (SAPHNELO) 300 mg in 0.9% NaCl 110 mL IVPB 300 mg, intravenous, at 220 mL/hr, Administer over 30 Minutes, Once, On Sat03/30/24 at 1230, 1 dose, Administer with 0.22 micron filter. Flush the infusion set with 25 mL NS to ensure all the solution for infusion has been administered.Indications:Sy stemic lupus erythematosus with other organ involvement, unspecified SLE type (CMS/HCC) (HCC) New Bag/Syringe 03/30/2024 12:37 PM EST 300 mg 220 mL/hr sodium chloride 0.9% (NS) premix infusion intravenous, at 250 mL/hr, Once, On Sat03/30/24 at 1200, 1 doseIndications: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, unspecified SLE type (CMS/HCC) (HCC) New Bag/Syringe 03/30/2024 12:03 PM EST 250 mL/hr documented in this encounter Care Teams Serials Librarian Relationship Specialty Start Date End Date Karen Chaudhary MD [address] [place] [address] PCP - General 03/16/21 documented as of this encounter
--- OUTSIDE RECORDS SUMMARY | 2024-04-16 14:25 | XMS_ITS | Continuity of Care Document ---
Author Organization [employer] Address [address] [facility] [place] [address] Care Team Providers Care Wood Hacker Name Role Phone Johnna Butler PA-C Unavailable Unavailable Allergies, Adverse Reactions, Alerts Substance Reaction Status Criticality No Known Allergies Active No Inform ation Medications Medication Instructions Dosage Effective Dates (start - stop) Status Comments ferrous sulfate 325 mg (65 mg iron) tablet Take 1 tablet daily BID - Active ibuprofen 600 mg tablet take 1 tablet by oral route 2 times every day as needed for pain; take with food 600 MG - Active Diflucan 150 mg tablet take 1 tablet by oral route once - Active Plaquenil 200 mg tablet take 1 tablet by oral route every day 200 MG - Active prednisone 50 mg tablet take (60MG/M2) by oral route every day for 5 days 60 MG/M2 - Active Procedures Procedure Date HIV-1 ROUTINE VENIPUNCTURE ALPHA-FETOPROTEIN, SERUM OFFICE/OUTPATIENT VISIT, EST OFFICE/OUTPATIENT VISIT, EST OFFICE/OUTPATIENT VISIT, EST PAP SMEAR PAP SMEAR WITH HPV CYTOPATH C/V AUTO FLUID REDO CHYLMD TRACH, DNA, AMP PROBE N.GONORRHOEAE, DNA, AMP PROB OFFICE/OUTPATIENT VISIT, EST ROUTINE VENIPUNCTURE OFFICE/OUTPATIENT VISIT, EST COMPLETE CBC W/AUTO DIFF WBC ROUTINE VENIPUNCTURE LYME DISEASE ANTIBODY RHEUMATOID FACTOR, QUANT ASSAY OF PROTEIN, SERUM ANTINUCLEAR ANTIBODIES OFFICE/OUTPATIENT VISIT, EST OFFICE/OUTPATIENT VISIT, EST OFFICE/OUTPATIENT VISIT, EST ROUTINE VENIPUNCTURE N.GONORRHOEAE, DNA, AMP PROB COMPLETE CBC, AUTOMATED PREV VISIT, NEW, AGE 18-39 Advance Directives Directive Yes / No Effective Date File Name No Information Encounters Encounter Description Practice Location Reason(s) For Visit Diagnoses Date Provider Providers Copied on Encounter [facility], [address], Tayla pacheco [place], [id number], [place] MdBernie Adult No Information 8 Kjtricia Oropeza. [address] [facility], [place], [id number], [place]. tel:[phone] OFFICE/OUTPA TIENT VISIT, [facility], [address], [place], [id number], [place] [facility]dlS Adult ED follow up (chief complaint) Pulmonary noduleSystemic lupus erythematosus, unspecified SLE type, unspecified organ involvement statusScreenin g for HIV (human immunodeficien cy virus)Screenin g for STD (sexually transmitted disease) 8 Luke Oropeza. [address] [facility], [place], [id number], [place]. tel:[phone] OFFICE/OUTPA TIENT VISIT, [facility], [address], Tayla pacheco [place], [id number], [place] [facility] Adult ER Follow Up (chief complaint) Chest pain, unspecified typeSLE (systemic lupus erythematosus related syndrome) [address] [facility], [place], [id number], [place]. tel:[phone] OFFICE/OUTPA TIENT VISIT, [facility], [address], Tayla pacheco [place], [id number], [place] MdBernie OBGYN vaginal itching and burning (chief complaint) Vulvovaginal candidiasisCer vical cancer screening [address] [facility], [address], Tayla pacheco [place], [id number], [place]. tel:[phone] [facility], [address], [place]la p[place], [place], [id number], [place] MdlS Adult No Information 7 Kjtricia [address]za. [address] [facility], Tayla pacheco [place], [id number], [place]. tel:[phone] OFFICE/OUTPA TIENT VISIT, [facility], [address], Tayla pacheco [place], [id number], [place] [facility] Adult ER discharge (chief complaint) Systemic lupus erythematosus, unspecified SLE type, unspecified organ involvement statusLung infiltrate 7 [address] [facility], Tayla pacheco [place], [id number], [place]. tel:[phone] [facility], [address], Tayla pacheco [place], [id number], [place] MdlS Adult No Information 7 Kjtricia [address]za. [address] [facility], Tayla pacheco [place], [id number], [place]. tel:[phone] OFFICE/OUTPA TIENT VISIT, [facility], [address], [place]co [place], [id number], [place] [facility] Adult Lab Results (chief complaint) BRIELLE positiveRaised antibody titerHand ulceration, limited to breakdown of skin 7 Kjos Johnna. [address] [facility], Tayla pacheco [place], [id number], [place]. tel:[phone] OFFICE/OUTPA TIENT VISIT, [facility], [address], Tayla pacheco [place], [id number], [place] [facility] Adult Discuss test results (chief complaint) Pain, joint, multiple sitesElevated total proteinLeukope rober, unspecified type 7 Luke Oropeza. [address] [facility], [place]la p[place], [place], [id number], [place]. tel:[phone] OFFICE/OUTPA TIENT VISIT, [facility], [address], [place], [place], [id number], [place] [facility] Adult Musculoskeletal pain (FP) (chief complaint)Muscu loskeletal Pain (chief complaint) Pain of multiple sites [address] [facility], [place], [place], [id number], [place]. tel:[phone] OFFICE/OUTPA TIENT VISIT, [facility], [address], [place], [place], [id number], [place] [facility] Adult Musculoskeletal pain (chief complaint) Iron deficiency anemia, unspecified iron deficiency anemia typePain of multiple sites [address] [facility], [place] p[place], [place], [id number], [place]. tel:[phone] PREV VISIT, NEW, AGE 18-39 [facility], [address], [place], [place], [id number], [place] MdlS Adult Preventive exam (chief complaint) Preventative health careBody mass index (BMI) 22.0-22.9, adult 5 Luke [address]za. [address] [facility], Tayla pacheco, [place], [id number], [place]. tel:[phone] Family History Family Member Type Diagnosis Age At Onset No Information Immunizations Vaccine Date Status Comments Influenza, injectable, quadrivalent, split virus, 3 years or older Flulaval Quad [id number] refused Source: New Immuniza tion Record Tdap refused Source: New Imm unization Record Influenza, injectable, trivalent, split virus, preservative free, 4 years and older, Fluvirin [id number] not administered Note: Patient Left ; Source: New Immunization Record Tdap not administered Note: [place] nt left ; Source: New Immunization Record Payers Payer name Insurance type Covered libertarian ID Authoriza tion(s) [facility] [id number] Medicaid MC [id number] Social History Type Description Quantity Date Captured Comments Alcohol Use Details Unknown Caffeine Use Details Unknown Tobacco Use Status No Information Smoking Status No Information Sex Female Sexual Orientation Straight or heterosexual Aug Gender Identity Female Chief Complaint And Reason For Visit No Information Reason For Referral Reason For Referral No Information Plan Of Treatment Date Type Action Status Goal Depression scree tiffanie. Due on due Goal PAP. Due on due Goal SUPERINTENDENT SANITATION exam. Due on due Goal HIV Consented. Due on due Goal HPV (1st). Due on 8 due Goal HPV (1st). Due on 8 due Goal HIV Consented. Due on due Goal PAP. Due on due Goal SUPERINTENDENT SANITATION exam. Due on due Goal Depression scree tiffanie. Due on due Goal PAP. Due on due Goal SUPERINTENDENT SANITATION exam. Due on due Goal Depression scree tiffanie. Due on due Goal HIV Consented. Due on due Goal HPV (1st). Due on 8 due Goal PAP. Due on due Goal SUPERINTENDENT SANITATION exam. Due on due Goal HPV (1st). Due on 8 due Goal PAP -. Due on 7 due Goal HPV (1st). Due on 7 due Goal HIV Screen. Due on 16 due Goal Tdap. Due on due Goal PAP 21-29. Due on 7 due Goal Influenza Vaccine. Due on due Goal HPV (1st). Due on 7 due Goal Influenza Vaccine. Due on due Goal HIV Screen. Due on 16 due Goal PAP 21-29. Due on due Goal Tdap. Due on due Goal HPV (1st). Due on due Goal HIV Screen. Due on 16 due Goal HPV (1st). Due on due Goal PAP 21-29. Due on due Goal Tdap. Due on due Goal Influenza Vaccine. Due on due Goal HIV Consented. Due on due Goal PAP 21-29. Due on 7 due Goal HPV (1st). Due on 7 due Goal HIV Screen. Due on 16 due Goal Td vaccine. Due on 17 due Goal HIV Consented. Due on due Goal Influenza vaccine. Due on due Goal Tdap. Due on due Goal Depression scree tiffanie. Due on due Goal Influenza vaccine. Due on due Goal Td vaccine. Due on 16 due Goal HPV (1st). Due on 6 due Goal Depression scree tiffanie. Due on due Goal HIV Consented. Due on due Goal HIV Screen. Due on 16 due Goal PAP 21-29. Due on 6 due Goal Tdap. Due on due Goal Tdap. Due on due Goal Td vaccine. Due on 15 due Goal PAP 21-29. Due on 5 due Goal Influenza vaccine. Due on Oc due Goal HIV Screen. Due on 16 due Goal HIV Consented. Due on due Goal HPV (1st). Due on 5 due Goal Lifestyle education regardin g diet completed Referral Ordered: Referrals: Rheumatology. Evaluate and treat ordered Referral Ordered: Ophthalmology (related to Blurry vision) ordered Referral Ordered: Referrals: Ophthalmology. Evaluate and treat ordered Patient Education Iron-Rich Diet: After Y our Visit completed Future Order: Lab Order CBC, no diff ([id number]), Ordered on: Ordered History Of Present Illness Encounter Date Complaint History Of Prese nt Illness ED follow up Allyson Vega Sima dumont is a Haitian Speaking 27 y.o. female from [place] with a past medical history of SLE presented to the ER for chest and arm pain. In ER was found to have RLL consolidation and LLL nodule w/ hilar lymph node involvement on CTA. Pt also had some joint pains and swelling as well as worsening malar rash. Pt is requesting more information on her HGB level. Noted to have a HGB level os 9.9. MCV low. Reports monthly menstrual cycles that are not abnormally heavy. 1st day to third day are heavier than the other days. Duration is 4-5 days. ER Follow Up Pt. was seen at [facility] on 08/16/17 for Chest Pain.patient reporting continued chest pain; no change, reporting pain fluctuatespatient currently taking 10-day course of doxy for PNA found on chest xraypatient denies cough, fever, chillsreporting body aches and chest painstates that tylenol and ibuprofen don't do anything started antibiotics on 08/16/17per ED note, pain reproducible and by history seems musculoskeletalCXR performed in ED 08/16/17 with medial R lower lobe consolidation vaginal itching and burning Pt c /o itching and burning on vulva and in vagina. Admits to washing inside her vagina. On Prednisone and Plaquenil. ER discharge 26 year old fema maggie with lupus presents todayi for ER F/U. Pt was started on plaquenil by rheumatology and was therefore screened for TB. Quant gold came back indeterminate so a CXR was performed. On CXR a consolidation was noted so the pt was advised to go to the ER for further work-up. While admitted pt was started on IV antibiotcs for possible pneumonia. During her stay it was determined that the RLL infilitrate was likely no pneumonia, as patient was asymptomatic and was not producing sputum. A broncoscopy was ordered to r/o atypical infections given patients recent steroid use for lupus. Pt was not yet given bronchoscopy results and was given upcoming appointment to f/u with pulm. Lab Results BRIELLE positive, RF negative- labs ordered due to joint swelling and pain Discuss test results 26 yo F wit h no sig PMH presented to the ER on 04/07/16 c/o c/o fatigue, joint pain and rash for past month. Labs in the ER showed mild leukopenia only. DDX per ER included rheumatalogic cause (lupus, RA), acute HIV, syphilis, ?bactermeia/endocarditis (less likely, no RF). Pt was advised to f/u with [facility] for lab results that were ordered from the ER.Labs in ER significant for the following:HIV negmild leukopeniaNormal HGB/HCTRPR negTSH normalTotal protein mildly elevated Musculoskeletal pain (FP) Patien t is concern that she have fibromyalgia Musculoskeletal Pain Onset: 1 ye ar ago. Location: bilateral all joints. The pain is aching. Context: there is no injury. There are no aggravating factors. There are no relieving factors. Pertinent negatives include bruising, crepitus, decreased mobility, joint tenderness, limping, numbness, swelling, tingling in the arms, tingling in the legs and weakness. Musculoskeletal pain Onset: 2 we eks ago. Severity level is 7. It occurs constantly and is fluctuating. Location: right knee (lateral). The pain is aggravated by bending. Associated symptoms include swelling and tingling in the legs. Additional information: Patient also stated both feet swell and are painful on the bottom of her feetc/o pain all over, recurrent headache, feeling cramps in legs and feeling very weakHer diet includes cereal without milk and fried fast food, often goes many hours without food.Works 10 hours a day.Did not take Iron. Preventive exam Her menses is re gular. Details: heavy menstrual cycles. Negative for: breast discharge, breast lump(s) and breast pain. Menopausal symptoms negative for: insomnia and night sweats. Pertinent negatives include anxiety, depression and urinary incontinence. She does not take calcium. She does not take Vitamin D. She does not take multivitamins. She does not take Folic acid. The patient does not use tobacco. She has not been exposed to passive smoke. She does not drink alcohol. Functional Status Date Functional Assessmen t No Information Instructions Date Instruction Additional Infor richar discused fibromyalgi a with patienttrial ibuprofen for painrelaxation exercises, such as yogastates pcp recommended appointment for the end of this month; sent to appointment desk Related to Pain of multiple sites Giving encouragement to exercise Related to Body mass index (BMI) 22.0-22.9, adult Lifestyle education regarding di et Related to Body mass index (BMI) 22.0-22.9, adult Assessments Type Assessment Date No Information Patient Care Teams Name Effective Dates (start - stop) Status Members No Information
--- OUTSIDE RECORDS SUMMARY | 2024-04-16 14:25 | XMS_ITS | Encounter Summary ---
Author Organization [facility] Address [address] [place] [address] Care Team Providers Care Barn Boss Name Role Phone Karen Chaudhary MD Primary Care Provider Encounter Details Date Type Department Care Team (Late st Contact Info) Description 11/22/2023 myChart Message [facility] Financial Clearance Department [address] [place] [address] Mychart, Generic Provider [facility] [place] [address] Medication Social History Tobacco Use Types Packs/Day Years [...] Encounters Date Type Department Care Team (Late Contact Info) Description 04/27/2024 10:45 AM EST Infusion [facility] Infusion Clinic [address] [place] [address] Constantin Patterson MD [address] [place] [address] 05/25/2024 3:30 PM EDT Infusion [facility] Infusion [facility] [address] [place] [address] Constantin Patterson MD [address] [place] [address] 06/02/2024 12:00 PM EDT Follow-Up [facility] Rheumatology Clinic [address] [place] [address] Charge Coordinator: Constantin Valentino MD [address] [place] [address] documented as of this encounter Visit Diagnoses Not on filedocumented in this encounter Care Teams Barn Boss Relationship Specialty Start Date End Date Karen Chaudhary MD [address] [place] [address] PCP - General 03/16/21 documented as of this encounter
--- OUTSIDE RECORDS SUMMARY | 2024-04-16 14:25 | XMS_ITS | Encounter Summary ---
Author Organization [facility] Address [address] [place] [address] Care Team Providers Care Career Specialist Name Role Phone Karen Chaudhary MD Primary Care Provider Reason for Visit * Reason Onset Date Comments Lupus 03/16/2021 Encounter Details Date Type Department Care Team ([facility] st Contact Info) Description 03/16/2021 Telephone [facility] Central Scheduling Department [address] [place] [address] Telephone Intake, Staff Lupus Social History Tobacco Use Types Packs/Day Years Used Date Smoking Tobacco: Never Smokeless Tobacco: Never Comments Unknown Sex and Gender Information Value Date Recorded Sex Assigned at Female 05/20/2023 4:21 PM EDT Legal Sex Female 11:35 AM EDT Gender Identity Female 05/20/2023 4:21 PM EDT Sexual Orientation Not on file documented as of this encounter Miscellaneous Notes * Telephone Encounter - Debi Willard LPN - 03/16/2021 2:44 PM EST Appointment given * Telephone Encounter - Viviana Recinos LPN - 03/16/2021 11:37 AM EST Thanks. * Telephone Encounter - Jamila Rosibel - 03/16/2021 10:12 AM EST Derm pt scheduling appt re lupus Per Dt, denied scheduling Sending TE to [facility] Dermatology 4 Clinical Staff High Priority to contact pt and schedule appt Informed pt will receive a call back within next few business days documented in this encounter Plan of Treatment Upcoming Encounters Date Type Department Care Team (Late st Contact Info) Description 04/27/2024 10:45 AM EST Infusion [facility] Infusion [address] [address] Constantin Patterson MD [address] [place] [address] 05/25/2024 3:30 PM EDT Infusion [facility] Infusion [address] [address] Constantin Patterson MD [address] [place] [address] 06/02/2024 12:00 PM EDT Follow-Up [facility] Rheumatology Clinic [address] [place] [address] Internal Control Specialist: Constantin Valentino MD [address] [place] [address] documented as of this encounter Visit Diagnoses Not on filedocumented in this encounter Care Teams Career Specialist Relationship Specialty Start Date End Date Karen Chaudhary MD [address] [place] [address] PCP - General 03/16/21 documented as of this encounter
--- OUTSIDE RECORDS SUMMARY | 2024-04-16 14:25 | XMS_ITS | Encounter Summary ---
Author Organization [facility] Address [address] [place] [address] Care Team Providers Care Extension Worker Name Role Phone Karen Chaudhary MD Primary Care Provider Reason for Visit * Reason Onset Date Comments PAC Appt Request - New 12/11/2022 Lupus Clinic 12/11/2022 CS-Lupus F/U 12/11/2022 Encounter Details Date Type Department Care Team ([facility] Contact Info) Description 12/11/2022 Telephone [facility] Patient Access Center [address] [place] [address] Telephone Intake, Staff PAC Appt Request - New; Lupus Clinic; CS-Lupus F/U Social History Tobacco Use Types Packs/Day Years Used Date Smoking Tobacco: Never Smokeless Tobacco: Never Comments Unknown Sex and Gender Information Value Date Recorded Sex Assigned at Female 05/20/2023 4:21 PM EDT Legal Sex Female 11:35 AM EDT Gender Identity Female 05/20/2023 4:21 PM EDT Sexual Orientation Not on file documented as of this encounter Miscellaneous Notes * Telephone Encounter - Amaya Leyva - 12/19/2022 9:25 AM EDT Patient is calling today to make a follow up appointment with Dr. Singleton. Please call the patient back to schedule. * Telephone Encounter - Jennifer Ely - 12/17/2022 10:12 AM EDT New pt for Lupus Pt's referral came through referral dept today. Please assist with scheduling Please Call pt w/[facility] interp Pt can be reached at: [phone] Thank you PAC * Telephone Encounter - Chaya Dowling - 12/11/2022 1:21 PM EDT New pt Referral for Lupus Per DT 14 day scheduling required Cs unable to meet time frame Call pt w/[facility] interp at [phone] Pac~ documented in this encounter Plan of Treatment Upcoming Encounters Date Type Department Care Team (Late st Contact Info) Description 04/27/2024 10:45 AM EST Infusion [facility] Infusion Clinic [address] [place] [address] Constantin Patterson MD [address] [place] [address] 05/25/2024 3:30 PM EDT Infusion [facility] Infusion Clinic [address] [place] [address] Constantin Patterson MD [address] [place] [address] 06/02/2024 12:00 PM EDT Follow-Up [facility] Rheumatology Clinic [address] [place] [address] Digital Composer: Constantin Valentino MD [address] [place] [address] documented as of this encounter Visit Diagnoses Not on filedocumented in this encounter Care Teams Extension Worker Relationship Specialty Start Date End Date Karen Chaudhary MD [address] [place] [address] PCP - General 03/16/21 documented as of this encounter
--- OUTSIDE RECORDS SUMMARY | 2024-04-16 14:25 | XMS_ITS | Encounter Summary ---
Author Organization [employer] Address [address] [facility] [address] [place] [address] Care Team Providers Care Service Cleaner Name Role Phone Karen Chaudhary MD Primary Care Provide r Reason for Visit * Reason Comments Med Refill Encounter Details Date Type Department Care Team (Late st Contact Info) Description 06/13/2023 Refill [facility] MEDICINE [address] [place], [place] [phone] Karen Chaudhary MD [address] [place], [place] [phone] Systemic lupus erythematosus, unspecified SLE type, unspecified organ involvement status (CMS/HCC) Social History Tobacco Use Types Packs/Day Years Used Date Smoking Tobacco: Never Passive Smoke Exposure: Never Smokeless Tobacco: Never Depression Answer Date Recorded Patient Health Questionnaire-9 Score 0 08/30/2022 Housing Stability Answer Date Recorded What is your housing situation today? I have adithyakeke tolentino 12/19/[address] you [...] Date Recorded Patient Health Questionnaire-2 Score 0 08/30/2022 Comments Unknown Sex and Gender Information Value Date Recorded Sex Assigned at Female 01/01/2022 10:36 AM EDT Legal Sex Female 10:36 AM EDT Gender Identity Female 01/01/2022 10:36 AM EDT Sexual Orientation Choose not to disclose 2021 10:36 AM EDT documented as of this encounter Plan of Treatment Not on file documented as of this encounter Visit Diagnoses Diagnosis Systemic lupus erythematosus, unspecified SLE type, unspecified organ involvement status (CMS/HCC) documented in this encounter Additional Health Concerns Assessment Noted Time PHQ-9 Depression Total Score: 0 08/31/19 23 10:27 AM EDT documented as of this encounter Care Teams Service Cleaner Relationship Specialty Start Date End Date Karen Chaudhary MD [address] [place] [address] PCP - General Family Medicine 02/18/19 documented as of this encounter
== END 2024-04-16 15:02 | disposition home or self-care (01) ==
PROVIDERS: PCP Internal Medicine; Visit Provider Hospitalist
DX: R50.9 Fever, unspecified (principal); J10.1 Influenza due to other identified influenza virus with other respiratory manifestations; M32.9 Systemic lupus erythematosus, unspecified; R91.8 Other nonspecific abnormal finding of lung field; J84.116 Cryptogenic organizing pneumonia; R07.82 Intercostal pain; R06.09 Other forms of dyspnea
CPT/HCPCS: 99214

== ENCOUNTER 2024-04-16 14:21 | Outpatient (REF) | payer MEDICARE, MEDICAID, SELFPAY ==
--- OUTSIDE RECORDS SUMMARY | 2024-04-16 15:08 | XMS_ITS | Continuity of Care Document ---
Author Organization [employer] Address [address] [facility] [place] [address] Care Team Providers Care Sintering Plant Supervisor Name Role Phone Johnna Butler PA-C Unavailable [...] Diagnoses Date Provider Providers Copied on Encounter [facility], [address], Tayla pacheco [place], [id number], [place] MdBernie Adult No Information 8 K[address]ricia [address]za. [address] [facility], [place], [id number], [place]. tel:[phone] OFFICE/OUTPA TIENT VISIT, [facility], [address], [place], [id number], [place] MdlS Adult ED follow up (chief complaint) Pulmonary noduleSystemic lupus erythematosus, unspecified SLE type, unspecified organ involvement statusScreenin g for HIV (human immunodeficien cy virus)Screenin g for STD (sexually transmitted disease) 8 Luke Oropeza. [address] [facility], [place], [id number], [place]. tel:[phone] OFFICE/OUTPA TIENT VISIT, [facility], [address], Tayla pacheco [place], [phone], [place] MdlS Adult ER Follow Up (chief complaint) Chest pain, unspecified typeSLE (systemic lupus erythematosus related syndrome) [address] [facility], [place], [id number], [place]. tel:[phone] OFFICE/OUTPA TIENT VISIT, [facility], [address], Tayla pacheco [place], [id number], [place] MdBernie OBGYN vaginal itching and burning (chief complaint) Vulvovaginal candidiasisCer vical cancer screening [address] [facility], [address], Tayla pacheco [place], [id number], [place]. tel:[phone] [facility], [address], Tayla pacheco, [place], [id number], [place] MdlS Adult No Information 7 Kjtricia Oropeza. [address] [facility], Tayla pacheco [place], [id number], [place]. tel:[phone] OFFICE/OUTPA TIENT VISIT, [facility], [address], Tayla pacheco [place], [id number], [place] MdlS Adult ER discharge (chief complaint) Systemic lupus erythematosus, unspecified SLE type, unspecified organ involvement statusLung infiltrate 7 Kjtricia [address]peza. [address] [facility], Tayla pacheco [place], [id number], [place]. tel:[phone] [facility], [address], Tayla pacheco [place], [id number], [place] MdlS Adult No Information 7 Kjtricia O[address]peza. [address] [facility], Tayla pacheco [place], [id number], [place]. tel:[phone] OFFICE/OUTPA TIENT VISIT, [facility], [address], Tayla pacheco [place], [id number], [place] MdlS Adult Lab Results (chief complaint) BRIELLE positiveRaised antibody titerHand ulceration, limited to breakdown of skin 7 Kjos Johnna. [address] [facility], Tayla pacheco [place], [id number], [place]. tel:[phone] OFFICE/OUTPA TIENT VISIT, [facility], [address], Tayla pacheco [place], [id number], [place] MdlS Adult Discuss test results (chief complaint) Pain, joint, multiple sitesElevated total proteinLeukope rober, unspecified type 7 Luke Oropeza. [address] [facility], Tayla pacheco, [place], [id number], [place]. tel:[phone] OFFICE/OUTPA TIENT VISIT, [facility], [address], Tayla pacheco, [place], [id number], [place] MdlS Adult Musculoskeletal pain (FP) (chief complaint)Muscu loskeletal Pain (chief complaint) Pain of multiple sites [address] [facility], Tayla pacheco, [place], [id number], [place]. tel:[phone] OFFICE/OUTPA TIENT VISIT, [facility], [address], Tayla pache[place], [place], [id number], [place] MdlS Adult Musculoskeletal pain (chief complaint) Iron deficiency anemia, unspecified iron deficiency anemia typePain of multiple sites [address] [facility], Tayla pacheco, [place], [id number], [place]. tel:[phone] PREV VISIT, NEW, AGE 18-39 [facility], [address], Tayla pacheco, [place], [id number], [place] MdlS Adult Preventive exam (chief complaint) Preventative health careBody mass index (BMI) 22.0-22.9, adult 5 Luke Oropeza. [address] [facility], Tayla pacheco, [place], [id number], [place]. tel:[phone] Family History Family Member Type Diagnosis Age At Onset No Information Immunizations Vaccine Date Status Comments Influenza, injectable, quadrivalent, split virus, 3 years or older Flulaval Quad [id number] refused Source: New Immuniza tion Record Tdap refused Source: New Imm unization Record Influenza, injectable, trivalent, split virus, preservative free, 4 years and older, Fluvirin [id number] not administered Note: Patient Left ; Source: New Immunization Record Tdap not administered Note: [place] nt left ; Source: New Immunization Record Payers Payer name Insurance type Covered libertarian ID [facility]iza t[id number] Medicaid [place] [id number] Social History Type Description Quantity Date Captured [...] due Goal PAP. Due on due Goal DOCUMENT CONTROL CLERK exam. Due on due Goal HIV Consented. Due on due Goal HPV (1st). Due on 8 due Goal Depression scree tiffanie. Due on due Goal DOCUMENT CONTROL CLERK exam. Due on due Goal PAP. Due on due Goal HIV Consented. Due on due Goal HPV (1st). Due on 8 due Goal PAP. Due on due Goal DOCUMENT CONTROL CLERK exam. Due on due Goal Depression scree tiffanie. Due on due Goal HIV Consented. Due on due Goal HPV (1st). Due on 8 due Goal PAP. Due on due Goal DOCUMENT CONTROL CLERK exam. Due on due Goal HPV (1st). Due on 8 due Goal HPV (1st). Due on 7 due Goal PAP 21-29. Due on 7 due Goal PAP 21-29. Due on 7 due Goal Influenza Vaccine. Due on due Goal HPV (1st). Due on 7 due Goal HIV Screen. Due on 16 due Goal Tdap. Due on due Goal Influenza Vaccine. Due on due Goal HIV Screen. Due on 16 due Goal PAP 21-29. Due on 7 due Goal Tdap. Due on due Goal HPV (1st). Due on due Goal HIV Consented. Due on due Goal Influenza Vaccine. Due on due Goal Tdap. Due on due Goal HIV Screen. Due on 16 due Goal HPV (1st). Due on due Goal PAP 21-29. Due on due Goal PAP 21-29. Due on 7 due Goal HPV (1st). Due on 7 due Goal HIV Screen. Due on 16 due Goal Td vaccine. Due on 17 due Goal HIV Consented. Due on due Goal Influenza vaccine. Due on due Goal Tdap. Due on due Goal Depression scree tiffanie. Due on due Goal Tdap. Due on due Goal PAP 21-29. Due on 6 due Goal HIV Screen. Due on 16 due Goal Influenza vaccine. Due on De due Goal Td vaccine. Due on 16 due Goal HPV (1st). Due on 6 due Goal Depression scree tiffanie. Due on due Goal HIV Consented. Due on due Goal HPV (1st). Due on 5 due Goal HIV Consented. Due on due Goal HIV Screen. Due on 16 due Goal Influenza vaccine. Due on Oc due Goal PAP 21-29. Due on 5 due Goal Td vaccine. Due on 15 due Goal Tdap. Due on due Goal Lifestyle education regardin g diet completed Referral Ordered: Referrals: Rheumatology. Evaluate and treat ordered Referral Ordered: Ophthalmology (related to Blurry vision) ordered Referral Ordered: Referrals: Ophthalmology. Evaluate and treat ordered Patient Education Iron-Rich Diet: After Y our Visit completed Future Order: Lab Order CBC, no diff ([id number]), Ordered on: Ordered History Of Present Illness Encounter Date Complaint History Of Prese nt Illness ED follow up Allysonitzel Victoria Sima dumont is a Bahamian Speaking 27 y.o. female from [place] with [...] ER Follow Up Pt. was seen at [facility] on 08/16/17 for Chest Pain.patient reporting continued [...]
--- OUTSIDE RECORDS SUMMARY | 2024-04-16 15:08 | XMS_ITS | Encounter Summary ---
Author Organization [facility] Address [address] [place] [address] Care Team Providers Care Guest Relations Receptionist Name Role Phone Karen Chaudhary MD Primary Care Provider Reason for Visit * Reason Comments Skin Problem Lupus f/u Encounter Details Date Type Department Care Team (Latest Contact Info) Description 02/10/2024 1:00 PM EST Office Visit [facility] D[facility] 4th Floor [address] [place] [address], [place] [address] Data Entry Supervisor: Sarah Jurado MD [address] [place] [address] Dermatology [place], [place] [phone] Discoid lupus (Primary Dx); High risk medication [...] who is seen in follow up at [facility] Departmentof Dermatology for the above. LV [...] Resident PGY-3 Discussed with attending, Dr. Bolanos Taping Foreman Used: Yes Taping Foreman Used For: Patient Language interpreted: Greenskeeper name: Mina Type of Resource Used: iPad Taping Foreman Information Interpreted: Entire Visit including history, consent, and plan Assistive Communication Needs: no documented in this encounter Plan of Treatment Upcoming Encounters Date Type Department Care Team (Late st Contact Info) Description 04/27/2024 10:45 AM EST Infusion [facility] Infusion Clinic [address] [place] [address] Constantin Patterson MD [address] [place] [address] 05/25/2024 3:30 PM EDT Infusion [facility] Infusion Clinic [address] [place] [address] Constantin Patterson MD [address] [place] [address] 06/02/2024 12:00 PM EDT Follow-Up [facility] Rheumatology Clinic [address] [place] [address] Data Entry Supervisor: Constantin Valentino MD [address] [place] [address] documented as of this encounter Visit Diagnoses Diagnosis Discoid lupus- Primary Lupus erythematosus High risk medication use DLE (discoid lupus erythematosus) Lupus erythematosus 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, unspecified SLE type (CMS/HCC) (HCC) documented in this encounter Care Teams Guest Relations Receptionist Relationship Specialty Start Date End Date Karen Chaudhary MD [address] [place] [address] PCP - General 03/16/21 documented as of this encounter
--- OUTSIDE RECORDS SUMMARY | 2024-04-16 15:08 | XMS_ITS | Encounter Summary ---
Author Organization [facility] Address [address] [place] [address] Care Team Providers Care Copy Center Operator Name Role Phone Karen Chaudhary MD Primary Care Provider Encounter Details Date Type Department Care Team (Late st Contact Info) Description 03/15/2024 myChart Message [facility] [address] [place] [address] Airfield Defence Guard: Consatntin Valentino MD [address] [place] [address] [phone] Goodmorning Social History Tobacco Use Types Packs/Day [...] Info) Description 04/27/2024 10:45 AM EST Infusion [facility] [address] [place] [address] Constantin Patterson MD [address] [place] [address] [phone] 05/25/2024 3:30 PM EDT Infusion [facility] [address] [place] [address] Constantin Patterson MD [address] [place] [address] 06/02/2024 12:00 PM EDT Follow-Up [facility] [address] [place] [address] Airfield Defence Guard: Constantin Valentino MD [address] [place] [address] documented as of this encounter Visit Diagnoses Not on filedocumented in this encounter Care Teams Copy Center Operator Relationship Specialty Start Date End Date Karen Chaudhary MD [address] [place] [address] PCP - General 03/16/21 documented as of this encounter
--- OUTSIDE RECORDS SUMMARY | 2024-04-16 15:08 | XMS_ITS | Clinical Summary ---
Author Organization [employer] Address [address] [facility] 7t [place] [address] Care Team Providers Care Director Perioperative Name Role Phone Karen Chaudhary MD Primary [...] 11/26/2023 Overview (11/26/2023): PAP done 01/30/[address] Giraldo, records to be obtained Assessment & Plan (11/26/2023 3:16 PM EDT): PAP done 01/30/[address] Giraldo, [...] likely that is going to be beneficial chcf to put her lupus 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, patient understood and agreed to start medication as soon as she is out of the flare and to have a further conversation wit rheumatology, she tells me she has an appointment next month Assessment & Plan (08/30/2022 4:53 PM EDT): Referral to a different rheumatology office done today patient will like to go to [facility], her food equipment service technician is also at [facility] Wheelchair prescription will be done today I [...] refer her again to rheumatology [facility] Encounters Date Type Department Care Team Description 02/12/2024 9:15 AM EST Office Visit [facility] MEDICINE [address] [place], [place] [phone] Karen Chaudhary MD Systemic lupus erythematosus, unspecified SLE type, unspecified organ involvement status (CMS/HCC) (Primary Dx); Lung mass; Dyspnea on exertion 02/12/2024 Travel 02/05/2024 Patient Outreach [facility] CHC MED & PEDS [address] [place], [place] [phone] Karen Chaudhary MD Pre-visit Planning (SDOH was [...] Hepatitis C Antibody NON-REACT SHRUTHI NON-REACT SHRUTHI [facility] [place] [employer] Comment: HCV antibody was non-reactive. There is no laboratory evidence of HCV infection. In most cases, no further action is required. However, if recent HCV exposure is suspected, a test for HCV RNA (test code 56460) is suggested. For additional information please refer to http://[employer].BRAINDIGIT/faq/FGB88q6 (This link is being provided for informational/ educational purposes only.) Blood Venous blood specimen / Unknown 08/30/2022 11:32 AM EDT 08/30/2022 11:43 AM EDT Narrative [facility] - 08/31/2022 5:34 AM EDT FASTING:YES FASTING: YES Karen Kumar MD LAB BLOOD ORDERABLES Final Result [facility] [address], [place] [address] [facility] [place] [employer] [address] [place] [address] * HIV-1/2 Antigen and Antibodies, Fourth Generation, with Reflexes (08/30/2022 11:32 AM EDT) Pathologist [facility] HIV Antigen/Antibody, 4th Generation NON-REAC TIVE NON-REAC TIVE [facility] [place] [employer] Comment: HIV-1 antigen and HIV-1/HIV-2 antibodies were [...] ?? For additional information please refer to http://education.BRAINDIGIT/faq/LOR914 (This link is being provided for informational/ educational purposes only.) The performance of this assay has not been clinically validated in patients less than 2 years old. Blood Venous blood specimen / Unknown 08/30/2022 11:32 AM EDT 08/30/2022 11:43 AM EDT Narrative [facility] - 08/31/2022 5:34 AM EDT FASTING:YES FASTING: YES Karen Kumar MD LAB BLOOD ORDERABLES Final Result [facility] [address], [place] [address] [facility] [address] [place] [address] * THINPREP PAP (09/01/2020 8:50 AM EDT) [...] historic and ?? current clinical information. ?? Gymnastics Coach : SEE COMMENT [facility] Comment: , CT(ASCP) CT screening location: [address] ??[address] Interpretation/R esult: Negative for intraepithelial lesion or malignancy. [facility] LMP: NONE [facility]IVEN [facility] Prev. BX: NONE [facility]IVEN [facility] Prev. PAP: NONE GIVEN [facility] Review Gymnastics Coach : SEE COMMENT [facility] Comment: BJ, CT(ASCP) CT screening location: [address] ??[address] SOURCE: None given [facility] Statement Of Adequacy: SEE COMMENT [facility] Comment: Satisfactory for evaluation. Endocervical/transformation zone component present. Age and/or menstrual status not provided 09/01/2020 8:50 AM EDT Karen Kumar MD LAB PATHOLOGY ORDERAB LES Final Result [facility] [address] [place] [address], from Last 3 Months or Most Recently Relevant to Health Maintenance Insurance MEDICARE Member Subscriber Plan / Payer (Ef fective 2022-Present) Name:Allyson Merino Member ID:[id number] Relation to Subscriber:Self Name:Victoria MujicaAllyson Subscriber ID:[id number] Payer ID:STATE Group ID:Not on file Type:Medicare Address: [facility] [address] [address] [facility] Care Teams Director Perioperative Relationship Specialty Start Date End Date Karen Chaudhary MD [address] [place] [address] PCP - General Family Medicine 02/18/19
--- OUTSIDE RECORDS SUMMARY | 2024-04-16 15:08 | XMS_ITS | Referral Summary ---
Author Organization [facility] Address [address] [place] [address] Care Team Providers Care Clinical Assoc Name Role Phone Karen Chaudhary MD Primary Care Provider Encounters Date Type Department Care Team Description 03/30/2024 11:45 AM EST Infusion [facility] Infusion Clinic [address] [place] [address] Constantin Patterson MD Obrien, Kelly, RN 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, unspecified SLE type (CMS/HCC) (HCC) (Primary Dx) 03/15/2024 myChart Message [facility] Rheumatology Clinic [address] [place] [address] Stake Driver: Constantin Valentino MD Goodmorning 03/02/2024 12:00 PM EST Infusion [facility] Infusion [address] [address] Constantin Patterson MD Gonynor, Courtney, EMBER 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, unspecified SLE type (CMS/HCC) (HCC) (Primary Dx) 02/10/2024 1:00 PM EST Office Visit [facility] Dermatology Clinic 4th [address] [place] [address], [place] [phone] Stake Driver: Sarah Jurado MD Discoid lupus (Primary Dx); High risk medication use; DLE (discoid lupus erythematosus); 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, unspecified SLE type (CMS/HCC) (HCC) 02/08/2024 Refill [facility] Dermatology Clinic 4th Floor [address] [facility], Fourth [place] [address] Stake Driver: Colton Cho MD 02/03/2024 11:00 AM EST Infusion [facility] Infusion Clinic [address] [place] [address] Constantin Patterson MD DorothyRosa Elena clark RN [...] today patient will like to go to [facility], her welfare service aide is also at [facility] Wheelchair prescription will be done [...] Info) Description 04/27/2024 10:45 AM EST Infusion [facility] Infusion Clinic [address] [place] [address] Constantin Patterson MD [address] [place] [address] 05/25/2024 3:30 PM EDT Infusion [facility] Infusion Clinic [address] [place] [address] Constantin Patterson MD [address] [place] [address] 06/02/2024 12:00 PM EDT Follow-Up [facility] Rheumatology Clinic [address] [place] [address] Stake Driver: Constantin Valentino MD [address] [place] [address] [phone] Procedures * Due to [place] state law, this organization might not be sharing negative HIV tests. Procedure Name Priority Date/Time Associated Diagnosis Comments HEPATITIS C ANTIBODY W/REFLEX TO HCV RNA, QUANTITATIVE PCR Routine 05/20/2023 4:20 PM EDT High risk medication use from Last 3 Months or Most Recently Relevant to Health Maintenance Results * Due to [place] [employer] law, this organization might not be sharing negative HIV tests. * Hepatitis C Antibody w/Reflex to HCV RNA, Quantitative PCR (05/20/2023 4:20 PM EDT) Hepatitis C Antibody NON-REACT SHRUTHI NON-REACT SHRUTHI 05/21/2023 12:59 AM EDT [facility] Comment: HCV antibody was non-reactive. There is no laboratory evidence of HCV infection. In most cases, no further action is required. However, if recent HCV exposure is suspected, a test for HCV RNA (test code 19933) is suggested. For additional information please refer to http://education.[employer].Seiratherm/faq/HCJ40z8 (This link is being provided for informational/ educational purposes only.) Blood Structure of peripheral vein / Unknown Venipuncture / Unknown 05/20/2023 4:20 PM EDT 05/20/2023 4:20 PM EDT Narrative [facility] CUT OFF - 05/21/2023 12:59 AM EDT [facility] Received Date: Colton Cici Yao MD LAB BLOOD ORDERABL ES Final Result [facility] [address] [facility] 3rd Floor, [place] [address], [place] [phone] [facility] [address] [facility] 3rd Floor, [place] [address], [place] [phone] from Last 3 Months or Most Recently Relevant to Health Maintenance Insurance MEDICARE [facility] Care Teams Clinical Assoc Relationship Specialty Start Date End Date Karen Chaudhary MD [address] [place] [address] PCP - General 03/16/21
--- OUTSIDE RECORDS SUMMARY | 2024-04-16 15:08 | XMS_ITS | Encounter Summary ---
Author Organization [facility] Address [address] [place] [address] Care Team Providers Care Pc Maintenance Technician Name Role Phone Karen Chaudhary MD Primary Care Provider Reason for Visit * Episode Based Medications (Routine) - Authorized Specialty Diagnoses / Procedures Referred By Contac t Referred To Contact Diagnoses 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, unspecified SLE type (CMS/HCC) (HCC) Constantin Patterson MD [address] [place] [address] Phone: tel: fax: [facility] Infusion Clinic [address] [place] [address] Phone: tel: Referral ID Status Reason Start Date Expiration Date V isits Requested Visits Authorized [id number] Authorized 08/13/2023 02/11/2025 6 6 Encounter Details Date Type Department Care Team (Late st Contact Info) Description 03/30/2024 11:45 AM EST Infusion [facility] Infusion Clinic [address] [place] [address] Constantin Patterson MD [address] [place] [address] [phone] Oly Lehman, RN Systemic lupus erythematosus with [...] Info) Description 04/27/2024 10:45 AM EST Infusion [facility] Infusion Clinic [address] [place] [address] Constantin Patterson MD [address] [place] [address] 05/25/2024 3:30 PM EDT Infusion [facility] Infusion Clinic [address] [place] [address] Constantin Patterson MD [address] [place] [address] 06/02/2024 12:00 PM EDT Follow-Up [facility] Rheumatology Clinic [address] [place] [address] Painter Tumbling Barrel: Constantin Valentino MD [address] [place] [address] documented as of this encounter Visit Diagnoses [...] mL/hr documented in this encounter Care Teams Pc Maintenance Technician Relationship Specialty Start Date End Date Karen Chaudhary MD [address] [place] [address] PCP - General 03/16/21 documented as of this encounter
--- OUTSIDE RECORDS SUMMARY | 2024-04-16 15:08 | XMS_ITS | Clinical Summary ---
Author Organization [facility] Address [address] [place] [address] Care Team Providers Care Catalyst Recovery Operator Name Role Phone Karen Chaudhary MD [...] today patient will like to go to [facility], her stereo operator is also at [facility] Wheelchair prescription will be done today I instructed patient to go to medical records to submit RMV form for platter Encounters Date Type Department Care Team Description 03/30/2024 11:45 AM EST Infusion [facility]fusion [facility] [address] [place] [address] Constantin Patterson MD Obrien, Kelly, RN 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, unspecified SLE type (CMS/HCC) (HCC) (Primary Dx) 03/15/2024 myChart Message [facility] [address] [place] [address] Elastic Yarn Twister: Constantin Valentino MD Goodokmarilu 03/02/2024 12:00 PM EST Infusion [facility] Infusion [address] [address] Constantin Patterson MD Gonynor, Courtney, EMBER 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, unspecified SLE type (CMS/HCC) (HCC) (Primary Dx) 02/10/2024 1:00 PM EST Office Visit [facility] [address]th [address] [place] [phone] Elastic Yarn Twister: Sarah Jurado MD Discoid lupus (Primary Dx); High risk medication use; DLE (discoid lupus erythematosus); 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, unspecified SLE type (CMS/HCC) (HCC) 02/08/2024 Refill [facility] [address]th [address] [place] [address], [place] [phone] Elastic Yarn Twister: Colton Cho MD 02/03/2024 11:00 AM EST Infusion [facility]fusion [facility] [address] [place] [address] Constantin Patterson MD Overstreet, Belinda, RN Systemic [...] Info) Description 04/27/2024 10:45 AM EST Infusion [facility]fusion [facility] [address] [place] [address] Constantin Patterson MD [address] [place] [phone] 05/25/2024 3:30 PM EDT Infusion [facility] Infusion Clinic [address] [place] [address] Constantin Patterson MD [address] [place] [phone] 06/02/2024 12:00 PM EDT Follow-Up [facility] Rheumatology [facility] [address] [place] [phone] Elastic Yarn Twister: Constantin Valentino MD [address] [place] [address] [phone] Health Maintenance Due Date Last Done Comments [...] complete this topic Procedures * Due to [place] state law, this organization might not be sharing negative HIV tests. Procedure Name Priority Date/Time Associated Diagnosis Comments HEPATITIS C ANTIBODY W/REFLEX TO HCV RNA, QUANTITATIVE PCR Routine 05/20/2023 4:20 PM EDT High risk medication use from Last 3 Months or Most Recently Relevant to Health Maintenance Results * Due to [place] state law, this organization might not be sharing negative HIV tests. * Hepatitis C Antibody w/Reflex to HCV RNA, Quantitative PCR (05/20/2023 4:20 PM EDT) Hepatitis C Antibody NON-REACT SHRUTHI NON-REACT SHRUTHI 05/21/2023 12:59 AM EDT THYME Comment: HCV antibody was non-reactive. There is no laboratory evidence of HCV infection. In most cases, no further action is required. However, if recent HCV exposure is suspected, a test for HCV RNA (test code 85166) is suggested. For additional information please refer to http://education.ZOZI/faq/FSF89x0 (This link is being provided for informational/ educational purposes only.) Blood Structure of peripheral vein / Unknown Venipuncture / Unknown 05/20/2023 4:20 PM EDT 05/20/2023 4:20 PM EDT Narrative [facility] - 05/21/2023 12:59 AM EDT [facility] Received Date: Colton Yao MD LAB BLOOD ORDERABL ES Final Result [facility] [address], [place] [address], [employer] [facility] [address] [facility], [place] [address], from Last 3 Months or Most Recently Relevant to Health Maintenance Insurance MEDICARE [facility] Care Teams Catalyst Recovery Operator Relationship Specialty Start Date End Date Karen Chaudhary MD [address] [place] [address] PCP - General 03/16/21
--- OUTSIDE RECORDS SUMMARY | 2024-04-16 15:09 | XMS_ITS | Encounter Summary ---
Author Organization [facility] Address [address] [place] [address] Care Team Providers Care Shape Brick Molder Name Role Phone Karen Chaudhary MD Primary Care Provider Reason for Visit * Reason Onset Date Comments Lupus 03/16/2021 Encounter Details Date Type Department Care Team ([facility] st Contact Info) Description 03/16/2021 Telephone [facility] Central Scheduling Department [address] [place] [phone] Telephone Intake, Staff Lupus Social History Tobacco [...] Per Dt, denied scheduling Sending TE to [facility] Dermatology 4 Clinical Staff High Priority to contact pt and schedule appt Informed pt will receive a call back within next few business days documented in this encounter Plan of Treatment Upcoming Encounters Date Type Department Care Team (Late st Contact Info) Description 04/27/2024 10:45 AM EST Infusion [facility] Infusion [address] [address] Constantin Patterson MD [address] [place] [address] 05/25/2024 3:30 PM EDT Infusion [facility] Infusion [address] [address] Constantin Patterson MD [address] [place] [phone] 06/02/2024 12:00 PM EDT Follow-Up [facility] Rheumatology Clinic [address] [place] [phone] Lay Brother: Constantin Valentino MD [address] [place] [phone] documented as of this encounter Visit Diagnoses Not on filedocumented in this encounter Care Teams Shape Brick Molder Relationship Specialty Start Date End Date Karen Chaudhary MD [address] [place] [phone] PCP - General 03/16/21 documented as of this encounter
--- OUTSIDE RECORDS SUMMARY | 2024-04-16 15:09 | XMS_ITS | Encounter Summary ---
Author Organization [facility] Address [address] [place] [address] Care Team Providers Care Insurance Verification Specialist Name Role Phone Karen Chaudhary MD Primary Care Provider Encounter Details Date Type Department Care Team (Late st Contact Info) Description 11/22/2023 myChart Message [facility] Financial Clearance Department [address] [place] [address] Mychart, Generic Provider [facility] [place] [address] Medication Social History Tobacco Use Types Packs/Day [...] Info) Description 04/27/2024 10:45 AM EST Infusion [facility] Infusion Clinic [address] [place] [address] Constantin Patterson MD [address] [place] [phone] 05/25/2024 3:30 PM EDT Infusion [facility] Infusion Clinic [address] [place] [address] Constantin Patterson MD [address] [place] [phone] 06/02/2024 12:00 PM EDT Follow-Up [facility] Rheumatology Clinic [address] [place] [phone] Work Station Support Specialist: Constantin Valentino MD [address] [place] [phone] documented as of this encounter Visit Diagnoses Not on filedocumented in this encounter Care Teams Insurance Verification Specialist Relationship Specialty Start Date End Date Karen Chaudhary MD [address] [place] [phone] PCP - General 03/16/21 documented as of this encounter
--- OUTSIDE RECORDS SUMMARY | 2024-04-16 15:09 | XMS_ITS | Encounter Summary ---
Author Organization [facility] Address [address] [place] [address] Care Team Providers Care Marine Insulator Name Role Phone Karen Chaudhary MD Primary Care Provider Reason for Visit * Reason Onset Date Comments PAC Appt Request - New 12/11/2022 Lupus Clinic 12/11/2022 CS-Lupus F/U 12/11/2022 Encounter Details Date Type Department Care Team ([facility] Contact Info) Description 12/11/2022 Telephone [facility] Patient Access Center [address] [place] [address] Telephone Intake, Staff PAC Appt Request - [...] Please assist with scheduling Please Call pt w/mohawk interp Pt can be reached at: [phone] Thank you PAC * Telephone Encounter - Chaya Dowling - 12/11/2022 1:21 PM EDT New pt Referral for Lupus Per DT 14 day scheduling required Cs unable to meet time frame Call pt w/mohawk interp at [phone] Pac~ documented in this encounter Plan of Treatment Upcoming Encounters Date Type Department Care Team (Late st Contact Info) Description 04/27/2024 10:45 AM EST Infusion [facility] Infusion Clinic [address] [place] [address] Constantin Patterson MD [address] [place] [phone] 05/25/2024 3:30 PM EDT Infusion [facility] Infusion Clinic [address] [place] [address] Constantin Patterson MD [address] [place] [address] 06/02/2024 12:00 PM EDT Follow-Up [facility] Rhe[facility] [address] [place] [phone] Manager Video: Constantin Valentino MD [address] [place] [address] documented as of this encounter Visit Diagnoses Not on filedocumented in this encounter Care Teams Marine Insulator Relationship Specialty Start Date End Date Karen Chaudhary MD [address] [place] [phone] PCP - General 03/16/21 documented as of this encounter
--- OUTSIDE RECORDS SUMMARY | 2024-04-16 15:09 | XMS_ITS | Encounter Summary ---
Author Organization [employer] Address [address] [facility] 7t [place] [address] Care Team Providers Care Personalized Living Manager Name Role Phone Karen Chaudhary MD Primary Care Provide r Reason for Visit * Reason Comments Med Refill Encounter Details Date Type Department Care Team (Late st Contact Info) Description 06/13/2023 Refill [facility] MED[facility] [address] [place], [place] [phone] Karen Chaudhary MD [address] [place], [place] [phone] Systemic lupus erythematosus, unspecified SLE type, unspecified [...] documented as of this encounter Care Teams Personalized Living Manager Relationship Specialty Start Date End Date Karen Chaudhary MD [address] [place] [phone] PCP - General Family Medicine 02/18/19 documented as of this encounter
[2024-04-16 16:54] LABS: Influenza A PCR POSITIVE (Negative); Influenza B PCR NEGATIVE (Negative); Resp Syncy Virus RNA Qual PCR NEGATIVE (Negative); SARS COV2 PCR INHOUSE NEGATIVE (Negative)
== END 2024-04-16 14:22 | disposition home or self-care (01) ==
LOC: HO.LNP 14:21
PROVIDERS: PCP Internal Medicine; Visit Provider Hospitalist
DX: J10.1 Influenza due to other identified influenza virus with other respiratory manifestations (principal); M32.9 Systemic lupus erythematosus, unspecified; R50.9 Fever, unspecified; R91.8 Other nonspecific abnormal finding of lung field; J84.116 Cryptogenic organizing pneumonia; R07.82 Intercostal pain; R06.09 Other forms of dyspnea
CPT/HCPCS: 0241U; 99212

== ENCOUNTER 2024-05-25 10:09 | Outpatient (REF) | payer MEDICARE, MEDICAID, SELFPAY ==
--- NOTE | ~2024-05-25 | CT_ITS ---
CLINICAL HISTORY: R91.8 - Other nonspecific abnormal finding of lung field CT chest without IV contrast. COMPARISON: CT chest dated 12/27/22 at 09:19 EDT FINDINGS: Visualized thyroid is unremarkable. No supraclavicular or axillary lymphadenopathy. Ascending aorta and main pulmonary artery are normal in caliber. No pericardial effusion. Normal esophagus. No mediastinal lymphadenopathy. No pleural effusion. Similar appearance of ground-glass and mild bronchiectasis within the posterior right lower lobe measuring approximately 4.7 x 2.4 x 5.4 cm, similar in size when measured in similar fashion. Trachea and central airways are clear. No significant bronchial wall thickening. Minimal ground-glass and linear consolidation/scarring within the posterior left lower lobe, similar to prior imaging. Similar appearance of small nodules along the minor fissure measuring 2-3 mm (series 4, image 60 and 62). Right upper lobe 3 mm pulmonary nodule (series 4, image 60), stable. No new or growing pulmonary nodule identified. Visualized portions of the upper abdomen are unremarkable. No acute fracture or suspicious bone lesion. IMPRESSION: 1. Stable appearance of reticular opacities within the posterior lower lobes bilaterally, [id number]. 2. Stable small pulmonary nodules. No new or growing pulmonary nodules identified. This document has been electronically signed by: Km Hogue MD on 05/26/2024 12:59:28
== END 2024-05-25 10:10 | disposition home or self-care (01) ==
LOC: HO.CT 10:09
PROVIDERS: PCP Internal Medicine; Visit Provider Hospitalist
DX: R91.8 Other nonspecific abnormal finding of lung field (principal)
CPT/HCPCS: 71250

== ENCOUNTER → 2024-05-25 10:10 | Outpatient (BNV) | payer MEDICARE, MEDICAID, SELFPAY | PROVIDERS: PCP Internal Medicine; Visit Provider Radiology Diagnostic Radiology | DX: R91.8 Other nonspecific abnormal finding of lung field (principal) | CPT/HCPCS: 71250 ==

== ENCOUNTER 2024-07-13 09:27 | Outpatient (AMB) | payer MEDICARE, MEDICAID, SELFPAY ==
--- NOTE | 2024-07-13 09:30 | A.OFFVIS_ITS ---
Vital Signs 07/13/24 09:31 Height 5 ft 2 in Weight 158 lb 11.725 oz BMI 29.0 BP 110/60 Blood Pressure Location Lt brachial Position Sitting Pulse 100 Pulse Source Pulse Oximeter Pulse Oximetry (%) 100 Oxygen Delivery Method Room Air Intake Visit Reasons: Pulmonary Nodules Allergies No Known Allergies Allergy (Verified 07/13/24 09:33) HPI Comments Details: The patient is a 34 year woman with a known history of lupus followed closely by the arthritis and has underlying interstitial lung disease and pulmonary nodules . The patient had been evaluated in [place] and then moved to the area and was being evaluated at [facility]. Back around 2018 the patient did have a CT scan at [facility] demonstrating bilateral irregular ill-defined fluffy opacities and densities. She did have a CT-guided biopsy demonstrating organizing pneumonia likely cough. The patient has been on hydrochloroquine and clinically she was stable. The patient was lost to follow-up because her doctor left. Now she is developing increasing chest tightness some pleuritic discomfort and cough. She has not had any imaging studies since 2018. I did personally reviewed the images. On examination her lungs are diminished. No crackles that I could appreciate. Patient needs a repeat CT scan. Will assess the area. If the areas are worse we will need to further perform diagnostic interventions and potential treatments. 01/03/2023 the patient is here for a pulmonary follow-up visit. The patient was any usual state health until the last few weeks when she started developing a respiratory illness. She started having worsening chest congestion and cough. Feels some chest tightness. She continues on the Plaquenil regarding her lupus appears to be stable. She did have a repeat CT scan of the chest which we personally reviewed. It appears that the areas involved with her organizing pneumonia back in 2018 have improved REM significantly although that is still there. Likely some degree of scarring was present. Does not appear to have any new spots or areas. She does have small pulmonary nodules. She does have pleuritic discomfort some degree but not in necessarily in the area involved. The patient does have some costochondritis. She has been coughing a lot more. She is congested. Will go ahead and treat her for bronchitis with bronchospasms. The patient is reluctant to use steroids. I gave her Medrol Gustavo that she can start if she is no better. 07/05/2023 the patient is here for a pulmonary follow-up visit. Patient overall feels better from the chest discomfort and cough. She is complaining of increasing dyspnea on exertion and also has back pain. She also has significant arthritic 80s. She is now seeing a recovery advocate in [place]. She was recently placed on methotrexate taking 6 tablets weekly. She just started the medication just a few weeks ago. She still has not seen significant improvement she is still pretty uncomfortable pain was. With dyspnea symptoms we did go for brief walking oximetry. The patient maintain a pulse ox of 98% which is reassuring. Her respiratory exam is also reassuring. I do not believe that there is any methotrexate induced toxicity. However, if her symptoms worsen she will come in for an x-ray. The patient also is been evaluated from a cardiac standpoint. She had a slight decrease in the ejection fraction and now plan to have a coronary artery angiogram. The patient also has pulmonary nodules and history of organizing pneumonia from her lupus. Will plan to repeat a formal CT scan of the chest in 6 months to address those abnormalities. Otherwise she is going to continue on current therapy. She would like to hold off on any steroids and she is on methotrexate and she will be following up closely with recovery advocate and also Cardiology. If she has any worsening symptoms she will call the office otherwise will follow-up in [address] scan. 01/14/2024 the patient is here for a pulmonary follow-up visit. Overall she is doing well from a respiratory status. She denies any chest discomfort. She sometimes she does get some back discomfort not sure if she is musculoskeletal or now. But otherwise denies any cough or shortness of breath with any activity. The patient is being followed closely was there. Recently she started infusion every month. This month will be her 4th infusion. She has been tolerating it well. She does not know the name of the medication. We did talk about her CT scan of the chest. She did have areas of ground-glass opacities and nodular densities that need to have follow-up. She did have a CT scan scheduled but she canceled it. She start since she was feeling well that she did not needed. Explained to her that that is okay specially since she started a new treatment protocol. Will have her continue this treatment protocol and plan to repeat her CT scan done in June as long she is doing okay. If she develops any worsening symptoms or any concerning symptoms she will call in order to address his an earlier time. Otherwise will follow-up sometime June after her CT scan. If she has any issues prior to that she call for an earlier assessment. 04/16/2024 the patient is here for sick visit. He has had positive sick contacts for the last week from her son. She started developing worsening cough shortness of breath. She does have immunocompromised conditions because of her connective tissue disease. She has had a fever the last few days. She went to an urgent care she was tested negative for both the flu and also COVID. Though she still continues to have significant coughing. When she arrived to the office she felt diaphoretic. She did have a slight temperature 100.6 degrees. She was also tachycardic she is dehydrated. We did swab her again for RSV COVID and flu. Will get the results in the meantime will start treating her for bronc hitis. 07/13/2024 the patient is here for a pulmonary follow-up visit. Overall she is doing better. She completed the antibiotics in the steroids. She is back to her baseline. She did undergo a CT scan of the chest. It appears that the interstitial changes are stable. No evidence of any worsening disease. She continues receive her biologic therapy for her lupus and was there. She gets monthly injections. She continues on the Plaquenil. Denies any visual changes. Benny from a pulmonary standpoint I do not see any manifestation of any active disease. She is going to continue with current therapy. Will follow-up in a year's time will follow-up with a repeat CAT scan to see if there is any progression of the interstitial lung disease then. If he has any worsening symptoms prior to them doubt she will call for an earlier assessment. [facility] Medical History (Updated 04/16/24 @ 22:07 by Phill Cole MD) Dyspnea Chest pain Cryptogenic organizing pneumonia Pulmonary nodules Lupus Social History Patient Tobacco Use Status: Never used Tobacco Review of Systems Const Denies chills, Denies fatigue, Denies fever(s), Denies weight gain and Denies weight loss Eyes Denies change in vision ENT Denies dizziness Card Denies chest pain, Denies leg edema, Denies lightheadedness, Denies palpitations, Denies dyspnea on exertion, Denies orthopnea and Denies other Resp Denies cough, Denies dyspnea on exertion and Denies wheezing GI Denies hematochezia and Denies change in stool character Musc Denies abnormal gait, Denies muscle weakness, Denies numbness, Denies radiating pain into limb and Denies tingling Skin/Breast Reports rash Neuro Denies abnormal gait, Denies dizziness, Denies numbness and Denies tingling Endo Denies fatigue and Denies palpitations Taran/Lymph Denies lymphadenopathy Aller/Immun Denies wheezing Physical Exam Vital Signs: Last Vital Signs Pulse 100 07/13/24 09:31 BP 110/60 07/13/24 09:31 Pulse Ox 100 07/13/24 09:31 Oxygen Delivery Method Room Air 07/13/24 09:31 BMI result Body Mass Index 29.0 Const General: comfortable HEENT Head: Yes normocephalic Neck Neck: Yes supple Chest Chest palpation & inspection: normal inspection of the chest Resp Effort & Inspection: normal respiratory effort Auscultation: clear to auscultation bilaterally and no rhonchi Cardio Rate: regular rate Rhythm: regular rhythm Heart sounds: S1 normal heart sound present and S2 normal heart sound present GI Palpation (GI): Soft to palpation Skin General skin exam: no rashes or lesions noted Extrem General: Yes no clubbing, cyanosis or edema Assessment & Plan Assessment & Plan (1) Lupus: Code(s): M32.9 - Systemic lupus erythematosus, unspecified Category: Medical (2) Pulmonary nodules: Code(s): R91.8 - Other nonspecific abnormal finding of lung field Category: Medical (3) Cryptogenic organizing pneumonia: Code(s): J84.116 - Cryptogenic organizing pneumonia Category: Medical (4) Chest pain: Code(s): R07.9 - Chest pain, unspecified Category: Medical Qualifiers: Chest pain type: intercostal pain Qualified Code(s): R07.82 - Intercostal pain (5) Dyspnea: Code(s): R06.00 - Dyspnea, unspecified Category: Medical Qualifiers: Dyspnea type: dyspnea on exertion Qualified Code(s): R06.09 - Other forms of dyspnea Plan cough medicine MAGNOLIA as needed continue plaquenil CT chest 1 yr F/U 12 months Orders: Orders CT chest wo IV con 1 Year J84.116 - Cryptogenic organizing pneumonia, M32.9 - Systemic lupus erythematosus, unspecified, R91.8 - Other nonspecific abnormal finding of lung field Coding Level of Care Code Est Pt Level 4 (67308) Diagnoses Lupus M32.9 Pulmonary nodules R91.8 Cryptogenic organizing pneumonia J84.116 Intercostal pain R07.82 Chest pain type: intercostal pain Dyspnea on exertion R06.09 Dyspnea type: dyspnea on exertion Time Spent (min) 17
[2024-07-13 09:31] VITALS: BP 110/60; PULSE 100; O2SAT 100; BMI 29.0
--- OUTSIDE RECORDS SUMMARY | 2024-07-13 09:40 | XMS_ITS | Clinical Summary ---
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 0 Active cetirizine (ZyrTEC) 10 mg tablet Take 20 mg by mouth 2 times a day. 2 Active Ventolin HFA 90 mcg/actuation inhaler INHALE 2 PUFFS FOUR TIMES DAILY NEEDED FOR SHORTNESS OF BREATH OR WHEEZING 3 Active betamethasone, augmented, (DIPROLENE) 0.05% ointmentIndication [...] with other organ involvement, unspecified SLE type (HCC) Take 6 tablets (15 mg total) by mouth once a week. 72 tablet 2 4 Active metoprolol tartrate (LOPRESSOR) 25 mg tablet SMARTSI Tablet(s) By Mouth Twice Daily 4 Active fluocinolone (SYNALAR) 0.01 % external solutionIndication s:DLE (discoid lupus erythematosus) Apply to the scalp nightly to areas of scaling or itching. 90 mL 3 4 Active tacrolimus (PROTOPIC) 0.1 % ointmentIndication s:DLE [...] FOR FACE 180 g 3 4 Active folic acid (FOLVITE) 1 mg tabletIndications: DLE (discoid lupus erythematosus) Take 2 tablets (2 mg total) by mouth once a day for 180 doses. 180 tablet 1 5 11/10/19 25 Active ketoconazole (NIZORAL) 2% shampooIndications :DLE (discoid lupus erythematosus) Apply to scalp and lather, leave in for 5 minutes, then rinse. Use 2-3 times weekly. 120 mL 5 5 Active hydroxychloroquine (PLAQUENIL) 200 mg tabletIndications: Discoid lupus Take 1.5 tablets (300 mg total) by mouth once a day. 135 tablet 3 5 06/24/19 26 Active Active Problems Problem Noted Date Diagnosed Date Anemia 11/30/2022 Overview (02/18/2023): Last Assessment & Plan: Its mild, I will re-check CBC and iron panel after this possible iron supplement prescription Dyspnea on exertion 08/30/2022 Systemic lupus erythematosus 06/21/2016 Overview (02/18/2023): Last Assessment & Plan: Labs reviewed with patient She may continue with same plaquenil dose Patient has upcoming appointments with sepcialists Last Assessment & Plan: Referral to a different rheumatology office done today patient will like to go to [facility], her 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 engineer is also at [facility] Wheelchair prescription will be done today I instructed patient to go to medical records to submit RMV form for platter Encounters Date Type Department Care Team Description 07/08/2024 3:45 PM EDT Infusion [facility] [address] [place] [phone] Constantin Patterson MD Pustis, Nicole, RN 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, unspecified SLE type (HCC) (Primary Dx) 06/30/2024 Results Follow-Up [facility] [address] [place] [address] Hogshead Cooper: Constantin Valentino MD 06/23/2024 3:20 PM EDT Office Visit [facility] [address] [place] [address] Hogshead Cooper: Constantin Valentino MD 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, unspecified SLE type (HCC) (Primary Dx); Discoid lupus 06/09/2024 3:30 PM EDT Infusion [facility] [address] [place] [address] Constantin Patterson MD Dolan, Alison, RN 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, unspecified SLE type (HCC) (Primary Dx) 05/13/2024 Telephone [facility] 2nd Floor [address] [facility], [place] [address] Hogshead Cooper: Colton Cho MD 05/11/2024 2:00 PM EDT Infusion [facility] [address] [place] [address] Constantin Patterson MD Obrien, Kelly, RN 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, unspecified SLE type (Primary Dx) from Last 3 Months Social [...] Sign Reading Time Taken Comments Blood Pressure 115/77 07/08/2024 3:52 PM EDT Pulse 98 07/08/2024 3:52 PM EDT Temperature 36.8 ??C (98.2 ??F) 07/08/2024 3:52 PM ED T Respiratory Rate 18 07/08/2024 3:52 PM EDT Oxygen Saturation 99% 07/08/2024 3:52 PM EDT Inhaled Oxygen Concentration - - Weight 69.8 kg (153 lb 14.1 oz) 07/08/2024 3:52 PM EDT Height 157.5 cm (5' 2 ) 06/23/2024 2:49 PM EDT Body Mass Index 28.15 06/23/2024 2:49 PM EDT Plan of Treatment Upcoming Encounters Date Type Department Care Team (Late st Contact Info) Description 08/05/2024 8:15 AM EDT Infusion [facility] [address] [place] [address] Constantin Patterson MD [address] [place] [address] 01/05/2025 2:00 PM EST Office Visit [facility] [address] [place] [phone] Hogshead Cooper: Constantin Valentino MD [address] [place] [address] Health Maintenance Due Date Last Done Comments HPV and Pap Smear 1992 Medicare AWV 01/05/1993 Varicella Vaccines (1 of 2 - 13+ 2-dose series) 01/05/2005 Hepatitis B Vaccines (1 of 3 - 19+ 3-dose series) 01/05/2011 DTaP,Tdap,and Td Vaccines (1 - Tdap) 01/05/2014 Cervical Cancer Screening 04/10/2016 Pap Smear 04/10/2016 04/10/2013 COVID-19 Vaccine (1 - 2023-2 5 season) 2023 Alcohol/Substance Use Screening 03/04/2024 Depression Screening and Follow-Up 03/04/2024 Social Drivers of Health Annual Screening 03/04/2024 RSV Vaccine (60+ years old and patients) (1 - 1-dose 75+ series) 01/05/2067 HIV Screening Completed 08/30/2022, 08/30/2022, 08/10/2020 Hepatitis C Screening Completed 05/20/2023 , 08/30/2022, 04/30/2016 Influenza Vaccine Completed 11/26/2023, 11/30/2022, 01/22/2020 Pneumococcal Vaccine: Pediatric (0-5 Years) and At-Risk Patients (6-50 Years) Aged Out 11/26/2023 No longer eligible based on patient's age to complete this topic Procedures * Due to [place] state law, this organization might not be sharing negative HIV tests. Procedure Name Priority Date/Time Associated Diagnosis Comments PROTEIN, RANDOM URINE WITH CREATININE Routine 06/23/2024 3:55 PM EDT 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, unspecified SLE type (HCC) URINALYSIS W/MICROSCOPIC Routine 06/23/2024 3:55 PM EDT 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, unspecified SLE type (HCC) BRIELLE SPECIFIC ANTIBODY INTERPRETATION Routine 06/23/2024 3:50 PM EDT 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, unspecified SLE type (HCC) BRIELLE SPECIFIC ANTIBODY STAGE 2 Routine 06/23/2024 3:50 PM EDT 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, unspecified SLE type (HCC) BRIELLE SPECIFIC ANTIBODY STAGE 1 Routine 06/23/2024 3:50 PM EDT 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, unspecified SLE type (HCC) BRIELLE SPECIFIC ANTIBODY Routine 06/23/2024 3:50 PM EDT 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, unspecified SLE type (HCC) DNA ANTIBODY, DOUBLE-STRANDED Routine 06/23/2024 3:50 PM EDT 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, unspecified SLE type (HCC) SSA & SSB (SJOGREN'S) ANTIBODIES Routine 06/23/2024 3:50 PM EDT 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, unspecified SLE type (HCC) COMPLEMENT C3 Routine 06/23/2024 3:50 PM EDT 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, unspecified SLE type (HCC) COMPLEMENT C4 Routine 06/23/2024 3:50 PM EDT 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, unspecified SLE type (HCC) C-REACTIVE PROTEIN Routine 06/23/2024 3: 50 PM EDT 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, unspecified SLE type (HCC) COMPREHENSIVE METABOLIC PANEL Routine 06/23/2024 3:50 PM EDT 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, unspecified SLE type (HCC) IGG Routine 06/23/2024 3:50 PM EDT 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, unspecified SLE type (HCC) IGM Routine 06/23/2024 3:50 PM EDT 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, unspecified SLE type (HCC) DNA ANTIBODY (DS) CRITHIDIA IFA W/REFLEX Routine 06/23/2024 3:50 PM EDT 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, unspecified SLE type (HCC) SEDIMENTATION RATE, AUTOMATED Routine 06/23/2024 3:50 PM EDT 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, unspecified SLE type (HCC) HEPATITIS C ANTIBODY W/REFLEX TO HCV RNA, QUANTITATIVE PCR Routine 05/20/2023 4:20 PM EDT High risk medication use from Last 3 Months or Most Recently Relevant to Health Maintenance Results * Due to [place] state law, this organization might not be sharing negative HIV tests. * Protein, urine, random (06/23/2024 3:55 PM EDT) Protein, Urine 7 mg/dL 06/23/2024 5:37 PM EDT [facility] Creatinine, Urine 73 15 - 278 mg/dL 06/23/2024 5:37 PM EDT [facility] Protein/Creati nine, Urine Ratio 96 <200 mg/gmCr 06/23/2024 5:37 PM EDT [facility] Urine Voided urine specimen / Unknown Non-Blood Collection / Unknown 06/23/2024 3:55 PM EDT 06/23/2024 4:57 PM EDT us Constantin Patterson MD LAB URINE ORDERABLES Final Result Performing Organization Address City/State/[facility] Co de Phone Number [facility] [address] [place] [address], * (ABNORMAL) Urinalysis With Microscopic (No Culture)-JARALES ONLY (06/23/2024 3:55 PM EDT) Color, Urine Colorless Colorless, Light Yellow, Yellow, Dark Yellow 06/23/2024 5:14 PM EDT [facility] Clarity, Urine Clear Clear 06/23/2024 5:14 PM EDT [facility] Specific Lane, Urine 1.013 <1.030 06/23/2024 5:14 PM EDT [facility] pH, Urine 7.0 4.6 - 8.0 06/23/2024 5:14 PM EDT [facility] Protein, Urine Negative Negative 06/23/2024 5:14 PM EDT [facility] Glucose, Urine Normal Normal 06/23/2024 5:14 PM EDT [facility] Ketones, Urine Negative Negative 06/23/2024 5:14 PM EDT [facility] Bilirubin, Urine Negative Negative 06/23/2024 5:14 PM EDT [facility] Blood, Urine Negative Negative 06/23/2024 5:14 PM T [facility] Nitrite, Urine Negative Negative 06/23/2024 5:14 PM [facility] Urobilinogen, Urine Normal Normal 06/23/2024 5:14 PM T [facility] Leukocyte Esterase, Urine Negative Negative 06/23/2024 5:14 PM T [facility] WBC, Urine 3(H) 0 - 2 /HPF 06/23/2024 5:14 PM T [facility] RBC, Urine <1 0 - 2 /HPF 06/23/2024 5:14 PM T [facility] Hyaline Casts, Urine 0 0 - 2 /LPF 06/23/2024 5:14 PM T [facility] Bacteria, Urine None Seen None /HPF /HPF 06/23/2024 5:14 PM T [facility] Squamous Epithelial Cells, Urine 2 /HPF 06/23/2024 5:14 PM [facility] Urine Voided urine specimen / Unknown Non-Blood Collection / Unknown 06/23/2024 3:55 PM EDT 06/23/2024 4:58 PM EDT us Constantin Patterson MD LAB URINE ORDERABLES Final Result Performing Organization Address City/State/[facility] Co de Phone Number [facility] [address] [place] [address], * (ABNORMAL) Stage 2 (06/23/2024 3:50 PM EDT) Sjogren's Ab (SS-A) 5.4 POS(A) <1.0 NEG AI 06/25/2024 8:17 AM EDT [email or web address] [facility] Sjogren's Ab (SS-B) <1.0 NEG <1.0 NEG AI 06/25/2024 8:17 AM EDT [email or web address] [facility] SCL-70 Antibody <1.0 NEG <1.0 NEG AI 06/25/2024 8:17 AM EDT [email or web address] [facility] RISA-1 Antibody <1.0 NEG <1.0 NEG AI 06/25/2024 8:17 AM EDT [email or web address] [facility] Comment: ANTIBODY PREVALENCE IN TIER 2 ? SS-A and SS-B antibodies are present in >80% Sjogren's syndrome and are considered a diagnostic indicator for this autoimmune disease. However, these antibodies are also present in other autoimmune disorders. ? SS-A antibodies are seen in 33% to 52% systemic lupus erythematosus (SLE), 42% polymyositis, 23% systemic sclerosis (scleroderma) and 13% mixed connective tissue disease (MCTD). ?? SS-B antibody is also present in 13% to 27% SLE, 5% systemic sclerosis, <2% polymyositis and <2% MCTD. ?? Scl-70 antibody is present in 16% systemic sclerosis, 7% MCTD (especially those with features of systemic sclerosis), 2% to 3% SLE, <2% Sjogren's syndrome and <2% polymyositis. ?? Risa-1 antibody is present in 17% polymyositis, 7% MCTD (especially in those with features of muscle inflammation), and <2% SLE, Sjogren's syndrome and systemic sclerosis. ?? Tier 2 antibodies are present in <2% of normal blood donors. ?? The [place] does not rule out autoimmune disease characterized by other autoantibody specificities such as rheumatoid arthritis, autoimmune hepatitis, primary biliary cirrhosis, autoimmune thyroiditis, Barnstable's disease, pernicious anemia, autoimmune neuropathies, vasculitis, celiac disease and bullous disease. Please contact your local [facility] if you are interested in additional testing. Blood Structure of peripheral vein / Unknown Venipuncture / Unknown 06/23/2024 3:50 PM EDT 06/23/2024 4:57 PM EDT [facility] [employer] - 06/25/2024 8:17 AM EDT [employer] Received Date:[id number] us Constantin Patterson MD LAB BLOOD ORDERABLES Final Result [facility] [address] [facility] [address], [place] [address], [employer] [facility] [address] [facility] [address], [place] [address], [place] [phone] * Interpretation (06/23/2024 3:50 PM EDT) BRIELLE Specific Antibody Interpretation See Comments 06/25/2024 8:17 AM EDT [employer] Comment: This finding suggests Sjogren's syndrome. These antibodies may occasionally be positive early in other connective tissue diseases. A positive result at this stage of testing stops further testing, and does not preclude additional positive antibodies. Clinical correlation is required to assess the need for testing additional analytes. Blood Structure of peripheral vein / Unknown Venipuncture / Unknown 06/23/2024 3:50 PM EDT 06/23/2024 4:57 PM EDT [facility] [employer] [facility] - 06/25/2024 8:17 AM EDT [employer] Received Date:[id number] us Constantin Patterson MD LAB BLOOD ORDERABLES Final Result Performing Organization Address [facility]/State/ZIP Co de Phone Number [facility] ROBISON [address] [facility] [address], [place] [address], [employer] [address] [facility] [address], [place] [address], [place] [phone] * Stage 1 (06/23/2024 3:50 PM EDT) DNA (Ds) Antibody <1 IU/mL 025 8:17 AM EDT [employer] Comment: ? IU/mL ? Interpretation ? < or = 4 ?Negative ? 5-9 ? Indeterminate ? > or = 10 ?? Positive Sm Antibody <1.0 NEG <1.0 NEG 06/25/2024 8:17 AM EDT [employer] SM/REFERRAL COORDINATOR Antibody <1.0 NEG <1.0 NEG 06/25/2024 8:17 AM EDT [employer] REFERRAL COORDINATOR Antibody <1.0 NEG <1.0 NEG 06/25/2024 8:17 AM EDT [employer] Chromatin Antibody <1.0 NEG <1.0 NEG 06/25/2024 8:17 AM EDT [employer] Blood Structure of peripheral vein / Unknown Venipuncture / Unknown 06/23/2024 3:50 PM EDT 06/23/2024 4:57 PM EDT Narrative [facility] ROBISON - 06/25/2024 8:17 AM EDT [facility] Received Date:[id number] Constantin Patterson MD LAB BLOOD ORDERABLES Final Result [facility] [address] [facility] [address] [facility], [place] [address], [email or web address] [facility] [address] [facility] [address], [place] [address], * DNA Antibody (ds) Crithidia IFA w/Reflex (06/23/2024 3:50 PM EDT) DNA Ab(ds) Crithidia, IFA Negative Negative 06/27/2024 7:53 AM EDT [employer] AMIDatameerDisha (FAJARDO) Blood Structure of peripheral vein / Unknown Venipuncture / Unknown 06/23/2024 3:50 PM EDT 06/23/2024 4:57 PM EDT [employer] [place] - 06/27/2024 7:53 AM EDT [facility] Received Date: Constantin Patterson MD LAB BLOOD ORDERABLES Final Result [facility] [address] [facility] [address] [facility], [place] [address], CHAST[facility] MILAN (FAJARDO) [address] [place] [address], [place] * (ABNORMAL) Anti-SSA and Anti-SSB (SSA & SSB Antibodies (Sjogren's) (06/23/2024 3:50 PM EDT) Sjogren's Ab (SS-A) 5.4 POS(A) <1.0 NEG AI 06/25/2024 8:17 AM EDT [email or web address] [facility] Sjogren's Ab (SS-B) <1.0 NEG <1.0 NEG AI 06/25/2024 8:17 AM EDT [email or web address] [facility] Blood Structure of peripheral vein / Unknown Venipuncture / Unknown 06/23/2024 3:50 PM EDT 06/23/2024 4:57 PM EDT Narrative [employer] ENRIQUETA - 06/25/2024 8:17 AM EDT [facility] Received Date: Constantin Patterson MD LAB BLOOD ORDERABLES Final Result [facility] ROBISON [address] [facility] [address] Floor, [place] [address], [place] [phone] [employer] [facility] [address] [facility] [address], [place] [address], [place] [phone] * Anti-DNA antibody, double-stranded (06/23/2024 3:50 PM EDT) [facility] DNA (Ds) Antibody <1 IU/mL 025 8:17 AM EDT [employer] Comment: ? IU/mL ? Interpretation ? < or = 4 ?Negative ? 5-9 ? Indeterminate ? > or = 10 ?? Positive Blood Structure of peripheral vein / Unknown Venipuncture / Unknown 06/23/2024 3:50 PM EDT 06/23/2024 4:57 PM EDT [employer] ENRIQUETA - 06/25/2024 8:17 AM EDT [facility] Received Date: Constantin Patterson MD LAB BLOOD ORDERABLES Final Result [facility] ROBISON [address] [facility] [address], [place] [address], [place] [phone] [employer] [facility] [address] [facility] [address], [place] [address], [place] [phone] * Sedimentation rate, automated (06/23/2024 3:50 PM EDT) Sed Rate 10 <20 mm/Hr mm/Hr 06/23/2024 5:07 PM EDT [facility] Blood Structure of peripheral vein / Unknown Venipuncture / Unknown 06/23/2024 3:50 PM EDT 06/23/2024 4:57 PM EDT Constantin Patterson MD LAB BLOOD ORDERABLES Final Result [facility] [address] [place] [address], * C3 complement (06/23/2024 3:50 PM EDT) Complement Component C3C 173 83 - 193 mg/dL 06/24/2024 3:47 PM EDT [facility] [employer] [facility] Blood Structure of peripheral vein / Unknown Venipuncture / Unknown 06/23/2024 3:50 PM EDT 06/23/2024 4:57 PM EDT Narrative [facility] - 06/24/2024 3:47 PM EDT [facility] Received Date:[id number] Constantin Patterson MD LAB BLOOD ORDERABLES Final Result [facility] [address] [facility] [address], [place] [address], [place] [phone] [email or web address] [facility] [address] [facility] [address], [place] [address], [place] [phone] * C4 complement (06/23/2024 3:50 PM EDT) Complement Component C4C 22 15 - 57 mg/dL 06/24/2024 3:47 PM EDT [employer] [facility] Blood Structure of peripheral vein / Unknown Venipuncture / Unknown 06/23/2024 3:50 PM EDT 06/23/2024 4:57 PM EDT Narrative [facility] ENRIQUETA - 06/24/2024 3:47 PM EDT [facility] Received Date:[id number] Constantin Patterson MD LAB BLOOD ORDERABLES Final Result [facility] [address] [facility] [address], [place] [address], [place] [phone] [email or web address] [facility] [address] [facility] [address], [place] [address], [place] [phone] * C-reactive protein (06/23/2024 3:50 PM EDT) [facility] C Reactive Protein <3.0 <=9.9 mg/L 06/23/2024 5:37 PM EDT [facility] Blood Structure of peripheral vein / Unknown Venipuncture / Unknown 06/23/2024 3:50 PM EDT 06/23/2024 4:57 PM EDT Constantin Patterson MD LAB BLOOD ORDERABLES Final Result Performing Organization Address City/[facility]/ZIP Co de Phone Number [facility] [address] [place] [address], * (ABNORMAL) BRIELLE (06/23/2024 3:50 PM EDT) Pathologist [facility] BRIELLE Screen, Immunoassay POSITIVE (A) NEGATIVE 06/25/2024 8:17 AM EDT [email or web address] [facility] Comment: A positive BRIELLE Multiplex indicates the presence of detectable antibodies to one or more of the component analytes consisting of double stranded DNA (dsDNA), chromatin, ribonucleoprotein (REFERRAL COORDINATOR), Felton/REFERRAL COORDINATOR (Sm/REFERRAL COORDINATOR), [place] (Sm), SS-A, SS-B, Risa-1, centromere B, Scl-70 and ribosomal P. Further laboratory testing may be considered if clinically indicated. For additional information, please refer to http://education.[email or web address]/faq/HXA243 (This link is being provided for informational/ educational purposes only.) ?? Blood Structure of peripheral vein / Unknown Venipuncture / Unknown 06/23/2024 3:50 PM EDT 06/23/2024 4:57 PM EDT [facility] ROBISON - 06/25/2024 8:17 AM EDT [facility] Received Date: us Constantin Patterson MD LAB BLOOD ORDERABLES Final Result Performing Organization Address City/[facility]/ZIP Co de Phone Number [facility] [address], [place] [address], [place] [phone] [email or web address] [facility] [address], [place] [address], [place] [phone] * IgM (06/23/2024 3:50 PM EDT) Immunoglobulin M 75 50 - 300 mg/dL 06/24/2024 3:47 PM EDT [employer] Blood Structure of peripheral vein / Unknown Venipuncture / Unknown 06/23/2024 3:50 PM EDT 06/23/2024 4:57 PM EDT Che[facility] ROBISON - 06/24/2024 3:47 PM EDT [facility] Received Date:[id number] us Constantin Patterson MD LAB BLOOD ORDERABLES Final Result Performing Organization Address City/[facility]/ZIP Co de Phone Number [facility] [address], [place] [address], [place] [phone] [email or web address] [facility] [address], [place] [address], [place] [phone] * IgG (06/23/2024 3:50 PM EDT) IgG, Serum 912 600 - 1640 mg/dL 06/24/2024 3:47 PM EDT [employer] Blood Structure of peripheral vein / Unknown Venipuncture / Unknown 06/23/2024 3:50 PM EDT 06/23/2024 4:57 PM EDT Narrative CHASTITY ROBISON - 06/24/2024 3:47 PM EDT [facility] Received Date: us Constantin Patterson MD LAB BLOOD ORDERABLES Final Result [facility] [address] [facility] [address], [place] [address], [place] [phone] [email or web address] [facility] [address] [facility] [address], [place] [address], [place] [phone] * (ABNORMAL) Comprehensive metabolic panel (06/23/2024 3:50 PM EDT) NA 140 135 - 145 mmol/L 06/23/2024 5:37 PM EDT [facility] K 3.7 3.5 - 5.3 mmol/L 06/23/2024 5:37 PM EDT [facility] Cl 104 98 - 107 mmol/L 06/23/2024 5:37 PM EDT [facility] CO2 25 22 - 32 mmol/L 06/23/2024 5:37 PM EDT [facility] Anion Gap 11 5 - 15 06/23/2024 5:37 PM EDT [facility] Glucose 92 65 - 99 mg/dL 06/23/2024 5:37 PM EDT [facility] Creatinine 0.60 0.50 - 1.20 mg/dL 06/23/2024 5:37 PM EDT [facility] Calcium 9.2 8.6 - 10.5 mg/dL 06/23/2024 5:37 PM EDT [facility] Total Protein 7.5 6.0 - 8.0 g/dL 06/23/2024 5:37 PM EDT [facility] Albumin 4.3 3.5 - 5.2 g/dL 06/23/2024 5:37 PM EDT [facility] Bilirubin, Total 0.4 0.2 - 1.2 mg/dL 06/23/2024 5:37 PM EDT [facility] Alkaline Phosphatase 109 35 - 129 U/L 06/23/2024 5:37 PM EDT [facility] AST 25 10 - 40 U/L 06/23/2024 5:37 PM EDT [facility] ALT 8(L) 10 - 40 U/L 06/23/2024 5:37 PM EDT [facility] BUN 9 7 - 23 mg/dL 06/23/2024 5:37 PM EDT [facility] eGFR >90 >=60 mL/min/1. 73m2 06/23/2024 5:37 PM T [facility] Comment:The estimated glomer ular filtration rate (eGFR) is calculated using a new formula developed by the NKF-ASN task force to eliminate race-based correction factors. The new formula uses serum/plasma creatinine, age, and gender to determine eGFR. A value below 60mls/min might indicate kidney disease and will be flagged. For additional information, see Nika et al, Am J Kidney Dis. 2021;79(2):268- 288, A Unifying Approach for GFR estimation: Recommendations of the NKF-ASN Task Force on Reassessing the Inclusion of Race in Diagnosing Kidney Disease . Globulin, Total 3.2 2.1 - 4.2 g/dL 06/23/2024 5:37 PM EDT [facility] A/G Ratio 1.3(L) 1.5 - 3.0 06/23/2024 5:37 PM EDT [facility] Blood Structure of peripheral vein / Unknown Venipuncture / Unknown 06/23/2024 3:50 PM EDT 06/23/2024 4:57 PM EDT us Constantin Patterson MD LAB BLOOD ORDERABLES Final Result [facility] [address] [place] [address], * Hepatitis C Antibody w/Reflex to HCV RNA, Quantitative PCR (05/20/2023 4:20 PM EDT) Hepatitis C Antibody NON-REACT SHRUTHI NON-REACT SHRUTHI 05/21/2023 12:59 AM EDT [employer] [facility] Comment: HCV antibody was non-reactive. There is no laboratory evidence of HCV infection. In most cases, no further action is required. However, if recent HCV exposure is suspected, a test for HCV RNA (test code 37915) is suggested. For additional information please refer to http://education.Dovetail/faq/XLU64b4 (This link is being provided for informational/ educational purposes only.) Blood Structure of peripheral vein / Unknown Venipuncture / Unknown 05/20/2023 4:20 PM EDT 05/20/2023 4:20 PM EDT Narrative [facility] - 05/21/2023 12:59 AM EDT [facility] Received Date:[id number] Colton Yao MD LAB BLOOD ORDERABL ES Final Result Performing Organization Address City/[facility]/ZIP Co de Phone Number [facility] [address] [facility] [address]rd Floor, [place] [address], [place] [phone] [email or web address] [facility] [address] [facility] 3rd Floor, [place] [address], [place] [phone] from Last 3 Months or Most Recently Relevant to Health Maintenance Insurance MEDICARE [facility] Care Teams Washerette Machine Operator Relationship Specialty Start Date End Date Karen Chaudhary MD [address] [place] [phone] PCP - General 03/16/21
--- OUTSIDE RECORDS SUMMARY | 2024-07-13 09:40 | XMS_ITS | Referral Summary ---
Author Organization [facility] Address [address] [place] [address] Care Team Providers Care Progressive Care Unit Registered Nurse Name Role Phone Karen Chaudhary MD Primary Care Provider Encounters Date Type Department Care Team Description 07/08/2024 3:45 PM EDT Infusion [facility] [address] [place] [address] [phone] Consatntin Patterson MD Pustis, Nicole, RN 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, unspecified SLE type (HCC) (Primary Dx) 06/30/2024 Results Follow-Up [facility] [address] [place] [id number] Hotel Maintenance Worker: Constantin Valentino MD 06/23/2024 3:20 PM EDT Office Visit [facility] [address] [place] [phone] Hotel Maintenance Worker: Constantin Valentino MD 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, unspecified SLE type (HCC) (Primary Dx); Discoid lupus 06/09/2024 3:30 PM EDT Infusion [facility] [address] [place] [address] 93[address] Constantin Patterson MD Dolan, Alison, RN 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, unspecified SLE type (HCC) (Primary Dx) 05/13/2024 Telephone [facility] 2nd Floor [address] [place] [address], [place] [address] Hotel Maintenance Worker: Colton Cho MD 05/11/2024 2:00 PM EDT Infusion [facility] [address] [place] [address] 225[address] Constantin Patterson MD Obrien, Kelly, RN 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, unspecified SLE type (Primary Dx) from Last 3 Months Allergies [...] today patient will like to go to [facility], her bulk pigment reducer is also at [facility] Wheelchair prescription will be done today [...] Info) Description 08/05/2024 8:15 AM EDT Infusion [facility] [address] [place] [address] 45520 Constantin Patterson MD [address] [place] [phone] 01/05/2025 2:00 PM EST Office Visit [facility] [address] [place] [address] [phone] Hotel Maintenance Worker: Constantin Valentino MD [address] [place] [phone] Procedures * Due to [place] state law, this organization might not be [...] to Health Maintenance Results * Due to [place] state law, this organization might not be sharing negative HIV tests. * Protein, urine, random (06/23/2024 3:55 PM EDT) Protein, Urine 7 mg/dL 06/23/2024 5:37 PM EDT [facility] Creatinine, Urine 73 15 - 278 mg/dL 06/23/2024 5:37 PM EDT [facility] Protein/Creati nine, Urine Ratio 96 <200 mg/gmCr 06/23/2024 5:37 PM EDT [facility] Urine Voided urine specimen / Unknown Non-Blood Collection / Unknown 06/23/2024 3:55 PM EDT 06/23/2024 4:57 PM EDT us Constantin Patterson MD LAB URINE ORDERABLES Final Result [facility] [address] [place] [address], [place] * (ABNORMAL) Urinalysis With Microscopic (No Culture)-LINGLE ONLY (06/23/2024 3:55 PM EDT) Color, Urine Colorless Colorless, Light Yellow, Yellow, Dark Yellow 06/23/2024 5:14 PM EDT [facility] Clarity, Urine Clear Clear 06/23/2024 5:14 PM EDT [facility] Specific Moody, Urine 1.013 <1.030 06/23/2024 5:14 PM EDT [facility] pH, Urine 7.0 4.6 - 8.0 06/23/2024 5:14 PM EDT [facility] Protein, Urine Negative Negative 06/23/2024 5:14 PM EDT [facility] Glucose, Urine Normal Normal 06/23/2024 5:14 PM EDT [facility] Ketones, Urine Negative Negative 06/23/2024 5:14 PM EDT [facility] Bilirubin, Urine Negative Negative 06/23/2024 5:14 PM EDT [facility] Blood, Urine Negative Negative 06/23/2024 5:14 PM EDT [facility] Nitrite, Urine Negative Negative 06/23/2024 5:14 PM EDT [facility] Urobilinogen, Urine Normal Normal 06/23/2024 5:14 PM EDT [facility] Leukocyte Esterase, Urine Negative Negative 06/23/2024 5:14 PM EDT [facility] WBC, Urine 3(H) 0 - 2 /HPF 06/23/2024 5:14 PM EDT [facility] RBC, Urine <1 0 - 2 /HPF 06/23/2024 5:14 PM EDT [facility] Hyaline Casts, Urine 0 0 - 2 /LPF 06/23/2024 5:14 PM EDT [facility] Bacteria, Urine None Seen None /HPF /HPF 06/23/2024 5:14 PM EDT [facility] Squamous Epithelial Cells, Urine 2 /HPF 06/23/2024 5:14 PM EDT [facility] Urine Voided urine specimen / Unknown Non-Blood Collection / Unknown 06/23/2024 3:55 PM EDT 06/23/2024 4:58 PM EDT us Constantin Patterson MD LAB URINE ORDERABLES Final Result Performing Organization Address City/State/[facility] Co de Phone Number [facility] [address] [place] [address], * (ABNORMAL) Stage 2 (06/23/2024 3:50 PM EDT) Sjogren's Ab (SS-A) 5.4 POS(A) <1.0 NEG AI 06/25/2024 8:17 AM EDT [employer] [facility] Sjogren's Ab (SS-B) <1.0 NEG <1.0 NEG AI 06/25/2024 8:17 AM EDT [employer] [facility] SCL-70 Antibody <1.0 NEG <1.0 NEG AI 06/25/2024 8:17 AM EDT [employer] [facility] OJHN-1 Antibody <1.0 NEG <1.0 NEG AI 06/25/2024 8:17 AM EDT [employer] [facility] Comment: ANTIBODY PREVALENCE IN TIER 2 [...] <2% Sjogren's syndrome and <2% polymyositis. ?? John-1 antibody is present in 17% polymyositis, 7% MCTD (especially in those with features of muscle inflammation), and <2% SLE, Sjogren's syndrome and systemic sclerosis. ?? Tier 2 antibodies are present in <2% of normal blood donors. ?? The [facility] does not rule out autoimmune disease characterized by other autoantibody specificities such as rheumatoid arthritis, autoimmune hepatitis, primary biliary cirrhosis, autoimmune thyroiditis, Adjuntas's disease, pernicious anemia, autoimmune neuropathies, vasculitis, celiac disease and bullous disease. Please contact your local [facility] if you are interested in additional testing. Blood Structure of peripheral vein / Unknown Venipuncture / Unknown 06/23/2024 3:50 PM EDT 06/23/2024 4:57 PM EDT Narrative [facility] - 06/25/2024 8:17 AM EDT [facility] Received Date: us Constantin Patterson MD LAB BLOOD ORDERABLES Final Result [facility] [address] [facility] 3rd Floor, [place] [address], [employer] [facility] [address] [facility] 3rd Floor, [place] [address], * Interpretation (06/23/2024 3:50 PM EDT) BRIELLE Specific Antibody Interpretation See Comments 06/25/2024 8:17 AM EDT [employer] Comment: This finding suggests Sjogren's syndrome. These [...] 3:50 PM EDT 06/23/2024 4:57 PM EDT [facility] 06/25/2024 8:17 AM EDT [employer] Received Date:[id number] us Constantin Patterson MD LAB BLOOD ORDERABLES Final Result Performing Organization Address City/State/[facility] Co de Phone Number [facility] [address] [facility] [address] Floor, [place] [address], [employer] [address] [facility] [address] Floor, [place] [address], * Stage 1 (06/23/2024 3:50 PM EDT) Pathologist [facility] DNA (Ds) Antibody <1 IU/mL 025 8:17 AM EDT [facility] Comment: ? IU/mL ? Interpretation ? < or = 4 ?Negative ? 5-9 ? Indeterminate ? > or = 10 ?? Positive Sm Antibody <1.0 NEG <1.0 NEG AI 06/25/2024 8:17 AM EDT [employer] [facility] SM/LINUX SYSTEM ADMINISTRATOR Antibody <1.0 NEG <1.0 NEG AI 06/25/2024 8:17 AM EDT [employer] [facility] LINUX SYSTEM ADMINISTRATOR Antibody <1.0 NEG <1.0 NEG AI 06/25/2024 8:17 AM EDT [employer] [facility] Chromatin Antibody <1.0 NEG <1.0 NEG AI 06/25/2024 8:17 AM EDT [employer] [facility] Blood Structure of peripheral vein / Unknown Venipuncture / Unknown 06/23/2024 3:50 PM EDT 06/23/2024 4:57 PM EDT [facility] 06/25/[facility] 8:17 AM EDT [facility] Received Date:[id number] Constantin Patterson MD LAB BLOOD ORDERABLES Final Result [facility] [address] [facility] [address]rd Floor, [place] [address], [place] [phone] [employer] [facility] [address] [facility] [address]rd Floor, [place] [address], [place] [phone] * DNA Antibody (ds) Crithidia IFA w/Reflex (06/23/2024 3:50 PM EDT) DNA Ab(ds) Crithidia, IFA Negative Negative 06/27/2024 7:53 AM EDT [facility]) Blood Structure of peripheral vein / Unknown Venipuncture / Unknown 06/23/2024 3:50 PM EDT 06/23/2024 4:57 PM EDT [facility]arrative [facility] 06/27/2024 7:53 AM EDT [facility] Received Date:[id number] Constantin Patterson MD LAB BLOOD ORDERABLES Final Result [facility] [address] [facility] 3rd Floor, [place] [address], [place] [phone] [employer] [place] [facility] [address] [place] [address], [place] * (ABNORMAL) Anti-SSA and Anti-SSB (SSA & SSB Antibodies (Sjogren's) (06/23/2024 3:50 PM EDT) Sjogren's Ab (SS-A) 5.4 POS(A) <1.0 NEG AI 06/25/2024 8:17 AM EDT [facility] Sjogren's Ab (SS-B) <1.0 NEG <1.0 NEG AI 06/25/2024 8:17 AM EDT [employer] Blood Structure of peripheral vein / Unknown Venipuncture / Unknown 06/23/2024 3:50 PM EDT 06/23/2024 4:57 PM EDT Narrative [facility] - 06/25/2024 8:17 AM EDT [facility] Received Date: Constantin Patterson MD LAB BLOOD ORDERABLES Final Result [facility] [address] [facility] 3rd Floor, [place] [address], [employer] [facility] [address] [facility] [address]rd Floor, [place] [address], * Anti-DNA antibody, double-stranded (06/23/2024 3:50 PM EDT) Pathologist [facility] DNA (Ds) Antibody <1 IU/mL 025 8:17 AM EDT [facility] Comment: ? IU/mL ? Interpretation ? < or = 4 ?Negative ? 5-9 ? Indeterminate ? > or = 10 ?? Positive Blood Structure of peripheral vein / Unknown Venipuncture / Unknown 06/23/2024 3:50 PM EDT 06/23/2024 4:57 PM EDT Narrative [employer] [facility] - 06/25/2024 8:17 AM EDT [facility] Received Date: Constantin Patterson MD LAB BLOOD ORDERABLES Final Result Performing Organization Address City/[facility]/ZIP Co de Phone Number [employer] [facility] [address] [facility] 3rd Floor, [place] [address], [employer] [facility] [address] [facility] 3rd Floor, [place] [address], * Sedimentation rate, automated (06/23/2024 3:50 PM EDT) Sed Rate 10 <20 mm/Hr mm/Hr 06/23/2024 5:07 PM EDT [facility] Blood Structure of peripheral vein / Unknown Venipuncture / Unknown 06/23/2024 3:50 PM EDT 06/23/2024 4:57 PM EDT Constantin Patterson MD LAB BLOOD ORDERABLES Final Result [facility] [address] [place] [address], * C3 complement (06/23/2024 3:50 PM EDT) Complement Component C3C 173 83 - 193 mg/dL 06/24/2024 3:47 PM EDT [employer] [facility] Blood Structure of peripheral vein / Unknown Venipuncture / Unknown 06/23/2024 3:50 PM EDT 06/23/2024 4:57 PM EDT Narrative [facility] - 06/24/2024 3:47 PM EDT [facility] Received Date:[id number] us Constantin Patterson MD LAB BLOOD ORDERABLES Final Result [facility] [address] [facility] [address] [facility], [place] [address], [place] [phone] [employer] [facility] [address], [place] [address], [place] [phone] * C4 complement (06/23/2024 3:50 PM EDT) Complement Component C4C 22 15 - 57 mg/dL 06/24/2024 3:47 PM EDT [employer] [facility] Blood Structure of peripheral vein / Unknown Venipuncture / Unknown 06/23/2024 3:50 PM EDT 06/23/2024 4:57 PM EDT Narrative [facility] - 06/24/2024 3:47 PM EDT [facility] Received Date:[id number] us Constantin Patterson MD LAB BLOOD ORDERABLES Final Result [facility] [address], [place] [address], [place] [phone] [employer] [facility] [address], [place] [address], [place] [phone] * C-reactive protein (06/23/2024 3:50 PM EDT) C Reactive Protein <3.0 <=9.9 mg/L 06/23/2024 5:37 PM EDT [facility] Blood Structure of peripheral vein / Unknown Venipuncture / Unknown 06/23/2024 3:50 PM EDT 06/23/2024 4:57 PM EDT us Constantin Patterson MD LAB BLOOD ORDERABLES Final Result Performing Organization Address City/[facility]/ZIP Co de Phone Number [facility] [address] [place] [address], [place] * (ABNORMAL) BRIELLE (06/23/2024 3:50 PM EDT) [facility] BRIELLE Screen, Immunoassay POSITIVE (A) NEGATIVE 06/25/2024 8:[address] [facility] Comment: A positive BRIELLE Multiplex indicates the presence of detectable antibodies to one or more of the component analytes consisting of double stranded DNA (dsDNA), chromatin, ribonucleoprotein (LINUX SYSTEM ADMINISTRATOR), Felton/LINUX SYSTEM ADMINISTRATOR (Sm/LINUX SYSTEM ADMINISTRATOR), [place]ton (Sm), SS-A, SS-B, John-1, centromere B, Scl-70 and ribosomal P. Further laboratory testing may be considered if clinically indicated. For additional information, please refer to http://education.[employer]/faq/KEX858 (This link is being provided for informational/ educational purposes only.) ?? Blood Structure of peripheral vein / Unknown Venipuncture / Unknown 06/23/2024 3:50 PM EDT 06/23/2024 4:57 PM EDT Narrative [employer] [facility] 06/25/2024 8:17 AM EDT [facility] Received Date: Constantin Patterson MD LAB BLOOD ORDERABLES Final Result Performing Organization Address [facility]/ZIP Co de Phone Number [facility] [address] [facility] [address]rd Floor, [place] [address], [place] [phone] [employer] [facility] [address] [facility] 3rd Floor, [place] [address], [place] [phone] * IgM (06/23/2024 3:50 PM EDT) [facility] Immunoglobulin M 75 50 - 300 mg/dL 06/24/2024 3:47 PM EDT [employer] [facility] Blood Structure of peripheral vein / Unknown Venipuncture / Unknown 06/23/2024 3:50 PM EDT 06/23/2024 4:57 PM EDT [facility] - 06/24/2024 3:47 PM EDT [facility] Received Date:[id number] us Constantin Patterson MD LAB BLOOD ORDERABLES Final Result [facility] [address] [facility] [address] [facility], [place] [address], [place] [phone] [employer] [facility] [address] [facility] 3rd Floor, [place] [address], [place] [phone] * IgG (06/23/2024 3:50 PM EDT) Pathologist [facility] IgG, Serum 912 600 - 1640 mg/dL 06/24/2024 3:47 PM EDT [employer] [facility] Blood Structure of peripheral vein / Unknown Venipuncture / Unknown 06/23/2024 3:50 PM EDT 06/23/2024 4:57 PM EDT [facility] [employer] [facility] - 06/24/2024 3:47 PM EDT [facility] Received Date:[id number] us Constantin Patterson MD LAB BLOOD ORDERABLES Final Result Performing Organization Address City/[facility]/ZIP Co de Phone Number [facility] [address] [facility] [address] [facility], [place] [address], [place] [phone] [employer] [facility] [address], [place] [address], [place] [phone] * (ABNORMAL) Comprehensive metabolic panel (06/23/2024 3:50 PM EDT) NA 140 135 - 145 mmol/L 06/23/2024 5:37 PM EDT [facility] K 3.7 3.5 - 5.3 mmol/L 06/23/2024 5:37 PM EDT [facility] Cl 104 98 - 107 mmol/L 06/23/2024 5:37 PM EDT [facility] CO2 25 22 - 32 mmol/L 06/23/2024 5:37 PM T [facility] Anion Gap 11 5 - 15 06/23/2024 5:37 PM T [facility] Glucose 92 65 - 99 mg/dL 06/23/2024 5:37 PM [facility] Creatinine 0.60 0.50 - 1.20 mg/dL 06/23/2024 5:37 PM T [facility] Calcium 9.2 8.6 - 10.5 mg/dL 06/23/2024 5:37 PM [facility] Total Protein 7.5 6.0 - 8.0 g/dL 06/23/2024 5:37 PM [facility] Albumin 4.3 3.5 - 5.2 g/dL 06/23/2024 5:37 PM [facility] Bilirubin, Total 0.4 0.2 - 1.2 mg/dL 06/23/2024 5:37 PM [facility] Alkaline Phosphatase 109 35 - 129 U/L 06/23/2024 5:37 PM [facility] AST 25 10 - 40 U/L 06/23/2024 5:37 PM [facility] ALT 8(L) 10 - 40 U/L 06/23/2024 5:37 PM [facility] BUN 9 7 - 23 mg/dL 06/23/2024 5:37 PM [facility] eGFR >90 >=60 mL/min/1. 73m2 06/23/2024 5:37 PM [facility] Comment:The estimated glomer ular filtration [...] - 4.2 g/dL 06/23/2024 5:37 PM EDT [facility] A/G Ratio 1.3(L) 1.5 - 3.0 06/23/2024 5:37 PM EDT [facility] Blood Structure of peripheral vein / Unknown Venipuncture / Unknown 06/23/2024 3:50 PM EDT 06/23/2024 4:57 PM EDT us Constantin Patterson MD LAB BLOOD ORDERABLES Final Result [facility] [address] [place] [address], * Hepatitis C Antibody w/Reflex to HCV RNA, Quantitative PCR (05/20/2023 4:20 PM EDT) Hepatitis C Antibody NON-REACT SHRUTHI NON-REACT SHRUTHI 05/21/2023 12:[address] [facility] Comment: HCV antibody was non-reactive. There is no laboratory evidence of HCV infection. In most cases, no further action is required. However, if recent HCV exposure is suspected, a test for HCV RNA (test code 05189) is suggested. For additional information please refer to http://education.[employer]/faq/DBV53b1 (This link is being provided for informational/ educational purposes only.) Blood Structure of peripheral vein / Unknown Venipuncture / Unknown 05/20/2023 4:20 PM EDT 05/20/2023 4:20 PM EDT Narrative [facility] - 05/21/2023 12:59 AM EDT [facility] Received Date:[id number] Colton Yao MD LAB BLOOD ORDERABL ES Final Result [facility] [address] [facility] [address]rd [address], [place] [address], [place] [phone] [employer] [facility] [address], [place] [address], [place] [phone] from Last 3 Months or Most Recently Relevant to Health Maintenance Insurance MEDICARE [facility] Care Teams Progressive Care Unit Registered Nurse Relationship Specialty Start Date End Date Karen Chaudhary MD [address] [place] [address] PCP - General 03/16/21
--- OUTSIDE RECORDS SUMMARY | 2024-07-13 09:41 | XMS_ITS | Encounter Summary ---
Author Organization [facility] Address [address] [place] [address] Care Team Providers Care Color Shop Helper Name Role Phone Karen Chaudhary MD Primary Care Provider Encounter Details Date Type Department Care Team (Late Contact Info) Description 11/22/2023 myChart Message [facility] Financial Clearance Department [address] [place] [address] Mychart, Generic Provider [address] [place] [address] [phone] Medication Social History Tobacco Use Types Packs/Day [...] Department Care Team (Late Contact Info) Description 08/05/2024 8:15 AM EDT Infusion [facility] Building Infusion Clinic [address] [place] [address] Constantin Patterson MD [address] [place] [address] 01/05/2025 2:00 PM EST Office Visit [facility] [address] [place] [address] Observer Helper: Constantin Valentino MD [address] [place] [address] documented as of this encounter Visit Diagnoses Not on filedocumented in this encounter Care Teams Color Shop Helper Relationship Specialty Start Date End Date Karen Chaudhary MD [address] [place] [address] PCP - General 03/16/21 documented as of this encounter
--- OUTSIDE RECORDS SUMMARY | 2024-07-13 09:41 | XMS_ITS | Clinical Summary ---
Author Organization [employer] Address [address] [facility] 7t [place] [address] Care Team Providers Care Heavy Forging Machine Operator Name Role Phone Karen Chaudhary MD Primary Care Provide r Allergies No known active allergies Medications hydroxychloroqui ne (Plaquenil) 200 MG tabletIndication s:Systemic lupus erythematosus, unspecified SLE type, unspecified organ involvement status (CMS/HCC) Take one tablet by mouth every other day and 2 tablets by mouth every other day 45 tablet 1 06/13/2023 Active Active Problems Problem Noted Date Diagnosed Date Cervical cancer screening 11/26/2023 Overview (11/26/2023): PAP done 01/30/[address] [facility] with Dr Giraldo, records to be obtained Assessment & Plan (11/26/2023 3:16 PM EDT): PAP done 01/30/[address] [facility] with Dr Giraldo, records to be obtained [...] likely that is going to be beneficial terminal clerk 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 lupus 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, patient understood and agreed to start medication as soon as she is out of the flare and to have a further conversation wit rheumatology, she tells me she has an appointment next month Assessment & Plan (08/30/2022 4:53 PM EDT): Referral to a different rheumatology office done today patient will like to go to [facility], her automatic punch press operator is also at [facility] Wheelchair prescription will be done [...] I will refer her again to rheumatology [facility] Encounters Date Type Department Care Team Description 05/25/2024 Orders Only [facility] External Provider, [facility] 05/15/2024 Population Health Risk Score [facility] (C3) Department [address] [address] Provider, Population Health Generic 04/16/2024 Orders Only GENERIC EXTERNAL DATA DEPARTMENT Provider, Generic External Data from Last 3 Months Immunizations Name Administration [...] 02/12/2024 9:26 AM EST Plan of Treatment Upcoming Encounters Date Type Department Care Team (Late st Contact Info) Description 08/19/2024 9:00 AM EDT Office Visit [facility] MEDICINE [address] [place] [address] Karen Chaudhary MD [address] [place] [address] Health Maintenance Due Date Last Done Comments Alcohol/Substance Use Screening 2004 Family Planning (PISQ) 01/05/2007 DTaP/Tdap/Td Vaccines (1 - Tdap) 01/05/2011 Hepatitis B Vaccines (1 of 3 - 19+ 3-dose series) 01/05/2011 HPV/Cotest 01/05/2022 Cervical Cancer Screening 09/02/2023 Pap Smear 09/02/2023 09/01/2020 COVID-19 Vaccine ( - 2023-2 5 season) 2023 SDOH Screening [...] Procedure Name Priority Date/Time Associated Diagnosis Comments CT CHEST WO CONTRAST Routine 05/26/2024 12:59 PM EDT SARS COV2/INFLUENZA A/B AND RSV RNA QL NAAT Routine 04/16/2024 2:21 PM EST HEPATITIS C AB W/REFL TO HCV RNA, QN, PCR Routine 08/30/2022 11:32 AM EDT Encounter for preventive health examination HIV 1/2 ANTIGEN/ANTIBODY, FOURTH GENERATION W/RFL Routine 08/30/2022 11:32 AM EDT Encounter for preventive health examination THINPREP PAP Routine 09/01/2020 8:50 AM EDT from Last 3 Months or Most Recently Relevant to Health Maintenance Results * CT Chest w/o Contrast (05/26/2024 12:59 PM EDT) Anatomical Region Laterality Modality Body, Chest Computed Tomogra phy 05/26/2024 12:5 9 PM EDT Narrative 05/26/2024 1:00 PM EDT ? [facility] ?[address] ?[place] [address] ? CT Scan Report ? Signed ? Patient: Allyson Merino ?MR#: MM ?? [id number] ? : 1990 ?Acct:[id number] ? Age/Sex: 34 / F ?ADM Date: 05/25/24 ? Loc: HO.CT ? Attending Dr: Phill Cole MD ? Ordering Physician: Phill Cole MD ?? Date of Service: 05/25/24 ?? Procedure(s): CT chest wo IV con ?? Accession Number(s): [id number] ? cc: Karen Chaudhary MD; Phill Cole MD ? Report Number: ?? [id number]: Total DLP = ??104.00 mGy-cm ? CLINICAL HISTORY: R91.8 - Other nonspecific abnormal finding of lung field ? CT chest without IV contrast. ? COMPARISON: CT chest dated 12/27/22 at 09:19 EDT ? FINDINGS: ?? Visualized thyroid is unremarkable. ?? No supraclavicular or axillary lymphadenopathy. ?? Ascending aorta and main pulmonary artery are normal in caliber. No ?? pericardial effusion. ?? Normal esophagus. No mediastinal lymphadenopathy. ? No pleural effusion. Similar appearance of ground-glass and mild ?? bronchiectasis within the posterior right lower lobe measuring ?? approximately 4.7 x 2.4 x 5.4 cm, similar in size when measured in similar ?? fashion. ?? Trachea and central airways are clear. No significant bronchial wall ?? thickening. ?? Minimal ground-glass and linear consolidation/scarring within the ?? posterior left lower lobe, similar to prior imaging. ?? Similar appearance of small nodules along the minor fissure measuring 2-3 ?? mm (series 4, image 60 and 62). ?? Right upper lobe 3 mm pulmonary nodule (series 4, image 60), stable. ?? No new or growing pulmonary nodule identified. ? Visualized portions of the upper abdomen are unremarkable. ?? No acute fracture or suspicious bone lesion. ? IMPRESSION: ?? 1. Stable appearance of reticular opacities within the posterior lower ?? lobes bilaterally, bqzqd-gtveava-[id number]-left. ?? 2. Stable small pulmonary nodules. No new or growing pulmonary nodules ?? identified. ? This document has been electronically signed by: Km Hogue MD on ?? 05/26/2024 12:59:28 ? Dictated By: ?Km Hogue MD ? Signed By: ?<Electronically signed by Km Hogue MD in OV> ?05/26/24 1259 ? DD/ 1259 ? TD/TT: 05/26/24 1259 ? Awake Overnight Monitor: ? Procedure Note Donhowardter, Image - 05/26/[address] [place] [address] [address] Scan Report Signed Patient: Estuardo Merino#: [id number] : 1990Acct:[id number] Age/Sex: 34 / FADM Date: 05/25/24 Loc: HO.CT Attending Dr: Phill Cole MD Ordering Physician: Phill Cole MD Date of Service: 05/25/24 Procedure(s): CT chest wo IV con Accession Number(s): [id number] cc: Karen Chaudhary MD; Phill Cole MD Report Number: [id number]: Total DLP = 104.00 mGy-cm CLINICAL HISTORY: R91.8 - Other nonspecific abnormal finding of lung field CT chest without IV contrast. COMPARISON: CT chest dated 12/27/22 at 09:19 EDT FINDINGS: Visualized thyroid is unremarkable. No supraclavicular or axillary lymphadenopathy. Ascending aorta and main pulmonary artery are normal in caliber. No pericardial effusion. Normal esophagus. No mediastinal lymphadenopathy. No pleural effusion. Similar appearance of ground-glass and mild bronchiectasis within the posterior right lower lobe measuring approximately 4.7 x 2.4 x 5.4 cm, similar in size when measured in similar fashion. Trachea and central airways are clear. No significant bronchial wall thickening. Minimal ground-glass and linear consolidation/scarring within the posterior left lower lobe, similar to prior imaging. Similar appearance of small nodules along the minor fissure measuring 2-3 mm (series 4, image 60 and 62). Right upper lobe 3 mm pulmonary nodule (series 4, image 60), stable. No new or growing pulmonary nodule identified. Visualized portions of the upper abdomen are unremarkable. No acute fracture or suspicious bone lesion. IMPRESSION: 1. Stable appearance of reticular opacities within the posterior lower lobes bilaterally, iqtgk-znvjnjn-vpnl-left. 2. Stable small pulmonary nodules. No new or growing pulmonary nodules identified. This document has been electronically signed by: Km Hogue MD on 05/26/2024 12:59:28 Dictated By: Km Hogue MD Signed By: <Electronically signed by Km Hogue MD in OV> 05/26/24 1259 DD/ 1259 TD/TT: 05/26/24 1259 Awake Overnight Monitor: [facility] External Provider IMG CT PROCEDURES Edited Result - Final * (ABNORMAL) SARS-CoV-2 RNA, Influenza A/B, and RSV RNA, Ql NAAT (04/16/2024 2:21 PM EST) Influenza A PCR POSITIVE(A) Negative [facility] Influenza B PCR NEGATIVE Negative [facility] Resp Syncy Virus RNA Qual PCR NEGATIVE Negative [facility] SARS COV2 PCR NEGATIVE Negative [facility] Comment:All test results mus t be correlated with clinical findings.Negative results do not preclude SARS-CoV2, influenza Avirus, influenza B virus and/or RSV infectionand should not be used as the sole basis for treatment orother patient management decisions. Negative results must becombined with clinical observations, patient history, andepidemiological information.This test has not been evaluated for monitoring treatment ofinfection.This test has been authorized by the FDA under an EmergencyUse Authorization (EUA) for use by authorized laboratories.Testing performed on the SMXXpert utilizingreal-time RT-PCR.All SARS CoV2 and positive influenza A/B results arereported to [facility]. 04/16/2024 2:21 PM EST 04/16/2024 3:10 PM EST Generic External Data Provider LAB MICROBIOLOGY - GENERAL ORDERABLES Final Result Performing Organization Address City/[facility]/ZIP Co de Phone Number [facility] [address] [place] [address] [phone] * Hepatitis C Antibody with Reflex to HCV, RNA, Quantitative, Real-Time PCR (08/30/2022 11:32 AM EDT) Hepatitis C Antibody NON-REACT SHRUTHI NON-REACT SHRUTHI [employer] [place] [address] Comment: HCV antibody was non-reactive. There is no laboratory evidence of HCV infection. In most cases, no further action is required. However, if recent HCV exposure is suspected, a test for HCV RNA (test code 60698) is suggested. For additional information please refer to http://education.SpeedDate/faq/THQ20e2 (This link is being provided for informational/ educational purposes only.) Blood Venous blood specimen / Unknown 08/30/2022 11:32 AM EDT 08/30/2022 11:43 AM EDT Narrative [facility] - 08/31/2022 5:34 AM EDT FASTING:YES FASTING: YES Karen Kumar MD LAB BLOOD ORDERABLES Final Result Performing Organization Address City/[facility]/ZIP Co de Phone Number [facility] [address], [place] [address] [employer] [place] [address] [place] [address] * HIV-1/2 Antigen and Antibodies, Fourth Generation, with Reflexes (08/30/2022 11:32 AM EDT) HIV Antigen/Antibody, 4th Generation NON-REAC TIVE NON-REAC TIVE [employer] [place] [address] Comment: HIV-1 antigen and HIV-1/HIV-2 antibodies were [...] ?? For additional information please refer to http://education.SpeedDate/faq/MWB725 (This link is being provided for informational/ educational purposes only.) The performance of this assay has not been clinically validated in patients less than 2 years old. Blood Venous blood specimen / Unknown 08/30/2022 11:32 AM EDT 08/30/2022 11:43 AM EDT Narrative [facility] - 08/31/2022 5:34 AM EDT FASTING:YES FASTING: YES Karen Kumar MD LAB BLOOD ORDERABLES Final Result [facility] [address] [place] [address], [place] [address] [facility] [address] [place] [address] * THINPREP PAP (09/01/2020 8:50 AM EDT) Clinical Information: None given [facility] COMMENT SEE COMMENT [facility] ON [...] historic and ?? current clinical information. ?? Supervisor Filling And Packing : SEE COMMENT [facility] Comment: KF, CT(ASCP) CT screening location: [address] ??[phone] Interpretation/R esult: Negative for intraepithelial lesion or malignancy. [facility] LMP: NONE GIVEN [facility] Prev. BX: NONE GIVEN [facility] Prev. PAP: NONE GIVEN [facility]OUND[facility] ON LAB SYSTEM Review Supervisor Filling And Packing : SEE COMMENT [facility] Comment: VIV CT(ASCP) CT screening location: [address] ??[address] SOURCE: None given [facility] Statement Of Adequacy: SEE COMMENT [facility] Comment: Satisfactory for evaluation. Endocervical/transformation zone component present. Age and/or menstrual status not provided 09/01/2020 8:50 AM EDT Karen Kumar MD LAB PATHOLOGY ORDERAB LES Final Result Performing Organization Address City/State/[facility] Co de Phone Number [facility] [address] from Last 3 Months or Most Recently Relevant to Health [place] [id number] [facility] STANDARD Care Teams Heavy Forging Machine Operator Relationship Specialty Start Date End Date Karen Chaudhary MD [address] [place] [address] PCP - General Family Medicine 02/18/19
--- OUTSIDE RECORDS SUMMARY | 2024-07-13 09:41 | XMS_ITS | Encounter Summary ---
Author Organization [facility] Address [address] [place] [address] Care Team Providers Care Fabric Inspector Name Role Phone Karen Chaudhary MD Primary Care Provider Reason for Visit * Episode Based Medications (Routine) - Authorized Specialty Diagnoses / Procedures Referred By Contac t Referred To Contact Diagnoses 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, unspecified SLE type (HCC) Constantin Patterson MD [address] [place] [address] Phone: tel: fax: [facility] [address] [place] [address] Phone: tel: Referral ID Status Reason Start Date Expiration Date V isits Requested Visits Authorized [id number] Authorized 08/13/2023 02/11/2025 6 6 Encounter Details Date Type Department Care Team (Late st Contact Info) Description 07/08/2024 3:45 PM EDT Infusion [facility] [address] [place] [address] Constantin Patterson MD [address] [place] [address] Amaya Yarbrough RN 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, unspecified SLE type (HCC) (Primary Dx) Social History Tobacco Use Types Packs/Day Years Used Date Smoking Tobacco: Never Passive Smoke Exposure: Never Smokeless Tobacco: Never Alcohol Use Standard [...] 14.1 oz) 07/08/2024 3:52 PM EDT Height - - Body Mass Index 28.15 06/23/2024 2:49 PM EDT documented in this encounter Nursing Notes * Amaya Yarbrough RN - 07/08/2024 3:45 PM EDT Pt presents for Saphnelo infusion q28 days for SLE Declined transport aircrewman Denies fever, infection, antibiotics within the last 7 days PIV placed, +bld return and flushed easily Tolerated treatment without incident PIV removed AVS provided Discharged stable and ambulatory documented in this encounter Plan of Treatment Upcoming Encounters Date Type Department Care Team (Late st Contact Info) Description 08/05/2024 8:15 AM EDT Infusion [facility] Building Infusion Clinic [address] [place] [address] Constantin Patterson MD [address] [place] [address] 01/05/2025 2:00 PM EST Office Visit [facility] Rheumatology Clinic [address] [place] [phone] Multiple Games Dealer: Constantin Valentino MD [address] [place] [address] documented as of this encounter Visit Diagnoses Diagnosis 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, unspecified SLE type (HCC)- Primary documented in this encounter Administered Medications Inactive Administered Medications - up to 3 most recent administrations Medication Order MAR Action Action Date Dose Rate Site anifrolumab-fnia (SAPHNELO) 300 mg in 0.9% NaCl 110 mL IVPB 300 mg, intravenous, at 220 mL/hr, Administer over 30 Minutes, Once, On Sat07/08/24 at 1600, 1 dose, Administer with 0.22 micron filter. Flush the infusion set with 25 mL NS to ensure all the solution for infusion has been administered.Indications:Sy stemic lupus erythematosus with other organ involvement, unspecified SLE type (HCC) New Bag/Syringe 07/08/2024 4:21 PM EDT 300 mg 220 mL/hr sodium chloride 0.9% (NS) premix infusion intravenous, at 250 mL/hr, Once, On Sat07/08/24 at 1600, 1 doseIndications: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, unspecified SLE type (HCC) New Bag/Syringe 07/08/2024 4:02 PM EDT 250 mL/hr documented in this encounter Care Teams Fabric Inspector Relationship Specialty Start Date End Date Karen Chaudhary MD [address] [place] [address] PCP - General 03/16/21 documented as of this encounter
--- OUTSIDE RECORDS SUMMARY | 2024-07-13 09:41 | XMS_ITS | Encounter Summary ---
Author Organization [facility] Address [address] [place] [address] Care Team Providers Care Flight Engineer Inspector Name Role Phone Karne Chaudhary MD Primary Care Provider Reason for Visit * Reason Onset Date Comments PAC Appt Request - New 12/11/2022 Lupus Clinic 12/11/2022 CS-Lupus F/U 12/11/2022 Encounter Details Date Type Department Care Team ([facility] Contact Info) Description 12/11/2022 Telephone [facility] Patient Access Center [address] [place] [address] Telephone Intake, Staff PAC Appt Request - [...] Please assist with scheduling Please Call pt w/german interp Pt can be reached at: [phone] Thank you PAC * Telephone Encounter - Chaya Dowling - 12/11/2022 1:21 PM EDT New pt Referral for Lupus Per DT 14 day scheduling required Cs unable to meet time frame Call pt w/german interp at [phone] Pac~ documented in this encounter Plan of Treatment Upcoming Encounters Date Type Department Care Team (Late st Contact Info) Description 08/05/2024 8:15 AM EDT Infusion [facility] Building Infusion Clinic [address] [place] [address] Constantin Patterson MD [address] [place] [address] 01/05/2025 2:00 PM EST Office Visit [facility] Rheumatology Clinic [address] [place] [address] Automotive Electrician: Constantin Valentino MD [address] [place] [address] documented as of this encounter Visit Diagnoses Not on filedocumented in this encounter Care Teams Flight Engineer Inspector Relationship Specialty Start Date End Date Karen Chaudhary MD [address] [place] [address] PCP - General 03/16/21 documented as of this encounter
--- OUTSIDE RECORDS SUMMARY | 2024-07-13 09:41 | XMS_ITS | Encounter Summary ---
Author Organization [facility] Address [address] [place] [address] Care Team Providers Care Reconciliation Clerk Name Role Phone Karen Chaudhary MD Primary Care Provider Encounter Details Date Type Department Care Team (Late st Contact Info) Description 06/30/2024 Results Follow-Up [facility] Rheumatology Clinic [address] [place] [phone] Cancellation Clerk: Constantin Valentino MD [address] [place] [address] [phone] Social History Tobacco Use Types Packs/Day Years [...] Info) Description 08/05/2024 8:15 AM EDT Infusion [facility] Building Infusion Clinic [address] [place] [address] Constantin Patterson MD [address] [place] [address] [phone] 01/05/2025 2:00 PM EST Office Visit [facility] Rheumatology Clinic [address] [place] [address] Cancellation Clerk: Constantin Valentino MD [address] [place] [address] documented as of this encounter Visit Diagnoses Not on filedocumented in this encounter Care Teams Reconciliation Clerk Relationship Specialty Start Date End Date Karen Chaudhary MD [address] [place] [phone] PCP - General 03/16/21 documented as of this encounter
--- OUTSIDE RECORDS SUMMARY | 2024-07-13 09:41 | XMS_ITS | Encounter Summary ---
Author Organization [facility] Address [address] [place] [address] Care Team Providers Care Used Car Renovator Name Role Phone Karen Chaudhary MD Primary Care Provider Reason for Visit * Reason Onset Date Comments Lupus 03/16/2021 Encounter Details Date Type Department Care Team ([facility] st Contact Info) Description 03/16/2021 Telephone [facility] Central Scheduling Department [address] [place] [phone] Telephone Intake, Staff Lupus Social History Tobacco [...] Per Dt, denied scheduling Sending TE to [facility] Dermatology 4 Clinical Staff High Priority to contact pt and schedule appt Informed pt will receive a call back within next few business days documented in this encounter Plan of Treatment Upcoming Encounters Date Type Department Care Team (Late st Contact Info) Description 08/05/2024 8:15 AM EDT Infusion [facility] Infusion Clinic [address] [place] [address] Constantin Patterson MD [address] [place] [address] 01/05/2025 2:00 PM EST Office Visit [facility] Rheumatology Clinic [address] [place] [address] Pot Tender: Constantin Valentino MD [address] [place] [address] documented as of this encounter Visit Diagnoses Not on filedocumented in this encounter Care Teams Used Car Renovator Relationship Specialty Start Date End Date Karen Chaudhary MD [address] [place] [address] PCP - General 03/16/21 documented as of this encounter
--- OUTSIDE RECORDS SUMMARY | 2024-07-13 09:41 | XMS_ITS | Encounter Summary ---
Author Organization [employer] Address [address] [facility] 7t [place] [address] Care Team Providers Care Senior Accounting Manager Name Role Phone Karen Chaudhary MD Primary Care Provide r Reason for Visit * Reason Comments Med Refill Encounter Details Date Type Department Care Team ([facility] st Contact Info) Description 06/13/2023 Refill [facility] [address] [place], [place] [phone] Karen Chaudhary MD [address] [place], [place] [phone] Systemic lupus erythematosus, unspecified SLE type, unspecified [...] Description 08/19/2024 9:00 AM EDT Office Visit [facility] MED[facility] [address] [place], [place] [phone] Karen Chaudhary MD [address] [place] [address] documented as of this encounter Visit Diagnoses Diagnosis Systemic lupus erythematosus, unspecified SLE type, unspecified organ involvement status (CMS/HCC) documented in this encounter Additional Health Concerns Assessment Noted Time PHQ-9 Depression Total Score: 0 08/31/19 23 10:27 AM EDT documented as of this encounter Care Teams Senior Accounting Manager Relationship Specialty Start Date End Date Karen Chaudhary MD [address] [place] [address] PCP - General Family Medicine 02/18/19 documented as of this encounter
== END 2024-07-13 10:34 | disposition home or self-care (01) ==
PROVIDERS: PCP Internal Medicine; Visit Provider Hospitalist
DX: M32.9 Systemic lupus erythematosus, unspecified (principal); R91.8 Other nonspecific abnormal finding of lung field; J84.116 Cryptogenic organizing pneumonia; R07.82 Intercostal pain; R06.09 Other forms of dyspnea
CPT/HCPCS: 99214

== ENCOUNTER → 2024-07-13 09:27 | Outpatient (BNVA) | payer MEDICARE, MEDICAID, SELFPAY | PROVIDERS: PCP Internal Medicine; Visit Provider Hospitalist | DX: R91.8 Other nonspecific abnormal finding of lung field (principal); R06.09 Other forms of dyspnea; J84.116 Cryptogenic organizing pneumonia; M32.9 Systemic lupus erythematosus, unspecified; R07.82 Intercostal pain | CPT/HCPCS: 99212 ==